=== PATIENT | male | born 1960 | race African-American/Black ===

== ENCOUNTER 2017-08-27 08:13 | Inpatient (IN) | payer MEDICARE, MEDICAID ==
[~2017-08-27] VITALS: Ht 165.1 cm; Wt 83.5 kg
[~2017-08-27 08:13] MED LIST: AMOX125T PO; CITA10TA17 PO; FLUC10SU PO; HYDR-552 PO; QUET25TA PO
--- NOTE | 2017-08-27 08:20 | NUR ---
YEHUDA FROM PRISON DT GROUND COFFEE EMESIS SINCE THIS AM. PATIENT IS OBTUNDED, NOTED WITH TRACHE ON COOL AEROSOL. SATING WELL. PATIENT IS AFEBRILE. NO ABDOMINAL DISTENTION NOTED. AFEBRILE. VSS
[2017-08-27] MEDS ORDERED: IV NS 0.9% 500 ML BAG IV ONE ×2 (08:30→10:00)
[2017-08-27] MEDS ORDERED: FAMOTIDINE/PF INJ 40 MG in IV D5W 50 ML IV ONE (08:30)
[2017-08-27 09:13] LABS: BASOPHILS # (AUTO) 0.1 /CMM (0.0-0.2); BASOPHILS % (AUTO) 0.8 % (0.0-2.0); EOSINOPHILS # (AUTO) 0.3 /CMM (0.0-0.7); EOSINOPHILS % (AUTO) 2.5 % (0.0-6.0); HEMATOCRIT 35 % (39-51); HEMOGLOBIN 11.4 g/dL (13.5-17.5); LYMPHOCYTES # (AUTO) 2.8 /CMM (0.8-4.8); LYMPHOCYTES % (AUTO) 24.9 % (20.0-44.0); MEAN CORPUSCULAR HEMOGLOBIN 29 PG (26.0-33.0); MEAN CORPUSCULAR HGB CONC 33 g/dl (31.0-36.0); MEAN CORPUSCULAR VOLUME 88 fL (80-96); MONOCYTES # (AUTO) 0.7 /CMM (0.1-1.30); MONOCYTES % (AUTO) 6.7 % (2.0-12.0); NEUTROPHILS # (AUTO) 7.2 /CMM (1.8-8.9); NEUTROPHILS % (AUTO) 65.1 % (43.0-81.0); PLATELET COUNT (AUTO) 283 /CMM (150-450); RDW COEFFICIENT OF VARIATION 16.7 (11.5-15.0); RED BLOOD CELL COUNT(AUTO) 3.97 MIL/uL (4.5-6.0); WHITE BLOOD COUNT (AUTO) 11.1 K/uL (4.3-11.0)
[2017-08-27 09:18] LABS: CALCIUM, SERUM 9.1 mg/dL (8.5-10.1); CARBON DIOXIDE 29 mmol/L (21-32); CHLORIDE 107 mmol/L (98-107); GLUCOSE 197 mg/dL (74-106); SODIUM SERUM 144 mmol/L (136-145); UREA NITROGEN, BLOOD 15 mg/dL (7-18)
[2017-08-27 09:24] LABS: ALANINE AMINOTRANSFERASE 30 U/L (12-78); ALBUMIN 3.1 g/dL (3.4-5.0); ALKALINE PHOSPHATASE 55 U/L (46-116); ASPARTATE AMINOTRANSFERASE 20 U/L (15-37); BILIRUBIN,DIRECT 0.1 mg/dL (0.0-0.2); BILIRUBIN,TOTAL 0.2 mg/dL (0.2-1.0); LIPASE 88 U/L (73-393); TOTAL PROTEIN, SERUM 8.2 g/dL (6.4-8.2)
[2017-08-27 09:27] LABS: TROPONIN I < 0.017 ng/mL (0.00-0.056)
[2017-08-27 09:30] LABS: INR 1.09 (0.87-1.13)
--- NOTE | 2017-08-27 09:43 | NUR ---
[facility] PAGED [phone] DR HERNANDEZ DIRECTOR RELIGIOUS EDUCATION
[2017-08-27 09:51] LABS: APPEARANCE,URINE Cloudy (CLEAR); BILIRUBIN,URINE Negative (NEGATIVE); BLOOD, URINE Negative Ery/uL (NEGATIVE); COLOR,URINE Yellow (YELLOW); KETONES,URINE Negative (NEGATIVE); LEUKOCYTE ESTERASE ,URINE Negative (NEGATIVE); NITRITE, URINE Negative (NEGATIVE); PH,URINE 8.5 (5.0-8.0); PROTEIN,URINE Negative (NEGATIVE); UGLUCOSE Negative (NEGATIVE); UROBILINOGEN,URINE 0.2 EU/dL (0.2)
--- NOTE | 2017-08-27 09:52 | NUR ---
CALLED [facility] BED
[2017-08-27 10:03] LABS: URINE AMORPHOUS PHOSPHATES Moderate /HPF (None Seen)
[2017-08-27 10:04] LABS: BACTERIA,URINE None seen /HPF (None Seen); RBC,URINE NONE SEEN /HPF (0-2); SQUAMOUS EPITHELIAL CELL,UR Few /HPF (None Seen); WBC,URINE 0-3 /HPF (0-3)
--- NOTE | 2017-08-27 10:21 | NUR ---
REPORT GIVEN TO TENISHA JACKSON FOR CONTINUITY OF CARE.
[2017-08-27 10:35] VITALS: BP 110/82
--- NOTE | 2017-08-27 10:35 | NUR ---
rn note received pt on bed, obtunded, opens eyes, responses to pain, no sob, noted, suctioned prn, trach in place, on tele monitor, sr 67 bpm, g tube in place, clamped, no residual, wounds present, iv in r hand 20 g, intact, safety measures implemented, call light within reach, bed in low and locked position, bed alarm on. will monitor pt.
[2017-08-27] MEDS ORDERED: DEXTROSE 50%-WATER 50 ML DISP.SYRIN IV PRN (11:30)
[2017-08-27] MEDS ORDERED: MAGNESIUM HYDROXIDE 30 ML UDC PO PRN (11:30)
[2017-08-27] MEDS ORDERED: HYDROCODONE/APAP 5/325MG 1 EACH TABLET PO PRN (11:30)
[2017-08-27] MEDS ORDERED: Z GUARD REMEDY 2 OZ OINT TP PRN (11:30)
[2017-08-27] MEDS ORDERED: ACETAMINOPHEN 325 MG TABLET PO PRN (11:30)
[2017-08-27] MEDS ORDERED: ONDANSETRON HCL/PF 4 MG/2 ML VIAL IVP PRN (11:30)
[2017-08-27] MEDS ORDERED: MAG HYDROX/AL HYDROX/SIMETH 30 ML UDC PO PRN (11:30)
[2017-08-27] MEDS ORDERED: ZOLPIDEM TARTRATE 5 MG TABLET PO PRN (11:30)
[2017-08-27 12:00] VITALS: BP 102/75
[2017-08-27] MEDS: PANTOPRAZOLE 40 MG VIAL IV SCH ×2 (12:59→21:57)
[2017-08-27] MEDS: BLOOD SUGAR DIAGNOSTIC 1 EACH STRIP VI SCH ×3 (12:59→21:57)
[2017-08-27] MEDS: IV D5/0.45 NACL 1,000 ML IV PRN (13:00)
[2017-08-27] MEDS: INSULIN REGULAR, HUMAN 100 UNIT/ML 3 ML VIAL SQ PRN ×2 (14:29→18:42)
[2017-08-27 18:00] VITALS: BP 110/74
--- NOTE | 2017-08-27 19:30 | NUR ---
OUTREACH MANAGER INITIAL NOTE RECEIVED IN BED WITH OPEN EYES. HOB ELEVATED. TRACH WITH COOL AEROSOL AND SATURATING WELL. ON ASPIRATION PRECAUTIONS. GTUBE CLAMPED. NPO STATUS. NO FACIAL GRIMACE NOTED. IV R HAND CLEAN, INTACT WITH FLUIDS INFUSING. WILL CONTINUE TO MONITOR.
[2017-08-27 20:00] VITALS: BP 110/77
[2017-08-27] MEDS: QUETIAPINE FUMARATE 25 MG TABLET PO SCH (21:57)
[2017-08-27] MEDS: *INSULIN REGULAR(HUMULIN R)HUM 100 UNIT/ML VIAL SQ PRN (22:11)
[2017-08-28] VITALS (9 sets, daily range): BP systolic 103–122; BP diastolic 67–85
[2017-08-28] MEDS: IV D5/0.45 NACL 1,000 ML IV PRN ×2 (02:28→16:38)
[2017-08-28 06:37] LABS: BASOPHILS # (AUTO) 0.1 /CMM (0.0-0.2); BASOPHILS % (AUTO) 0.7 % (0.0-2.0); EOSINOPHILS # (AUTO) 0.5 /CMM (0.0-0.7); EOSINOPHILS % (AUTO) 5.6 % (0.0-6.0); HEMATOCRIT 35 % (39-51); HEMOGLOBIN 11.5 g/dL (13.5-17.5); LYMPHOCYTES # (AUTO) 3.7 /CMM (0.8-4.8); LYMPHOCYTES % (AUTO) 43.4 % (20.0-44.0); MEAN CORPUSCULAR HEMOGLOBIN 30 PG (26.0-33.0); MEAN CORPUSCULAR HGB CONC 33 g/dl (31.0-36.0); MEAN CORPUSCULAR VOLUME 89 fL (80-96); MONOCYTES # (AUTO) 0.9 /CMM (0.1-1.30); MONOCYTES % (AUTO) 10.6 % (2.0-12.0); NEUTROPHILS # (AUTO) 3.4 /CMM (1.8-8.9); NEUTROPHILS % (AUTO) 39.7 % (43.0-81.0); RDW COEFFICIENT OF VARIATION 16.5 (11.5-15.0); RED BLOOD CELL COUNT(AUTO) 3.89 MIL/uL (4.5-6.0); WHITE BLOOD COUNT (AUTO) 8.6 K/uL (4.3-11.0)
[2017-08-28 06:56] LABS: CALCIUM, SERUM 8.3 mg/dL (8.5-10.1); CREATININE 0.8 mg/dL (0.6-1.3); MAGNESIUM 1.9 mg/dL (1.8-2.4); PHOSPHORUS 3.2 mg/dL (2.5-4.9); POTASSIUM 4.2 mmol/L (3.5-5.1)
--- NOTE | 2017-08-28 07:11 | NUR ---
WEAVER TIRE CORD CLOSING NOTE NO ACUTE DISTRESS NOTED. ALL NEEDS ATTENDED TO PROMPTLY. SUCTIONED NEEDED. REPOSITIONED Q2H. KEPT CLEAN AND DRY. NPO MAINTAINED. GTUBE IN PLACE AND CLAMPED. HOB ELEVATED. WILL ENDORSE TO NEXT SHIFT FOR CONTINUITY OF CARE.
--- NOTE | 2017-08-28 07:30 | NUR ---
MS/RN Patient received Patient received from plant technician/control room operator. Trach to cool aerosol at 10 liters (portex #9), saturating 98%. Vital signs within normal range, no fever noted, also no signs of any active bleeding. Patient requiring turning every 2-3 hours to prevent skin breakdown. Safety measures in place, will continue to monitor and ensure safety.
[2017-08-28] MEDS: CITALOPRAM HYDROBROMIDE 10 MG TABLET PO SCH (08:26)
[2017-08-28] MEDS: BLOOD SUGAR DIAGNOSTIC 1 EACH STRIP VI SCH ×4 (08:29→21:33)
[2017-08-28] MEDS: PANTOPRAZOLE 40 MG VIAL IV SCH ×2 (08:29→21:15)
[2017-08-28 08:42] LABS: PLATELET COUNT (AUTO) 228 /CMM (150-450)
--- NOTE | 2017-08-28 08:52 | NUR ---
MS/RN Medications Morning IV medications administered as ordered, all oral medications held as patient remains NPO due to GI bleed.
--- NOTE | 2017-08-28 09:36 | NUR ---
WOUND CARE CONSULT: PT PRESENTS WITH RT HEEL DEEP TISSUE INJURY (INTACT), DRY ABRASION TO RT EARLOBE EDGE NEAR FACE WITHOUT DRAINAGE, SACRAL SCARRING AND LEFT ANTERIOR LOWER LEG SCARRING, PRESENT ON ADMISSION. PT IS IMMOBILE WITH RUPAL SCORE OF 11. PT ON LEATHA ISOFLEX LOW AIRLOSS BED. ALL SKIN PROTECTION AND WOUND CARE RECOMMENDATIONS DISCUSSED WITH NURSING STAFF. WILL SEE PRN. BLACK IN AGREEMENT WITH PLAN OF CARE. Addendum: 08/28/17 at 0941 by JERRELL GOMEZ WNDNU Amended: Links added.
--- NOTE | 2017-08-28 12:21 | NUR ---
MS/RN Blood sugar Blood sugar at noon - 185, no coverage given as patient NPO.
--- NOTE | 2017-08-28 15:58 | NUR ---
MS/RN S/B GI Seen by GI - resume GT feedings, and then NPO from midnight for EGD tomorrow. Consent obtained from patient's Alisia.
--- NOTE | 2017-08-28 18:31 | NUR ---
MS/RN End note No changes in condition, awaiting feeding to be sent by [facility]. Safety measures in place, will endorse to slot shift supervisor.
[2017-08-28] MEDS: GLYTROL 1,000 ML BAG GT PRN (20:00)
[2017-08-28] MEDS: QUETIAPINE FUMARATE 25 MG TABLET PO SCH (21:15)
[2017-08-28] MEDS: *INSULIN REGULAR(HUMULIN R)HUM 100 UNIT/ML VIAL SQ PRN (21:34)
[2017-08-29] VITALS: BP 120/85
[2017-08-29 04:00] VITALS: BP 120/73
[2017-08-29] MEDS: IV D5/0.45 NACL 1,000 ML IV PRN ×2 (04:41→22:51)
[2017-08-29 07:25] LABS: BASOPHILS # (AUTO) 0.1 /CMM (0.0-0.2); EOSINOPHILS # (AUTO) 0.5 /CMM (0.0-0.7); EOSINOPHILS % (AUTO) 5.9 % (0.0-6.0); HEMATOCRIT 38 % (39-51); HEMOGLOBIN 12.5 g/dL (13.5-17.5); LYMPHOCYTES # (AUTO) 3.5 /CMM (0.8-4.8); LYMPHOCYTES % (AUTO) 43.4 % (20.0-44.0); MEAN CORPUSCULAR HEMOGLOBIN 29 PG (26.0-33.0); MEAN CORPUSCULAR HGB CONC 33 g/dl (31.0-36.0); MEAN CORPUSCULAR VOLUME 89 fL (80-96); MONOCYTES # (AUTO) 0.9 /CMM (0.1-1.30); MONOCYTES % (AUTO) 11.3 % (2.0-12.0); NEUTROPHILS # (AUTO) 3.1 /CMM (1.8-8.9); NEUTROPHILS % (AUTO) 38.4 % (43.0-81.0); PLATELET COUNT (AUTO) 254 /CMM (150-450); RDW COEFFICIENT OF VARIATION 16.3 (11.5-15.0); RED BLOOD CELL COUNT(AUTO) 4.24 MIL/uL (4.5-6.0)
[2017-08-29 07:29] LABS: CALCIUM, SERUM 8.3 mg/dL (8.5-10.1); CREATININE 0.8 mg/dL (0.6-1.3); MAGNESIUM 2.1 mg/dL (1.8-2.4)
--- NOTE | 2017-08-29 07:52 | NUR ---
RN NOTES RECEIVED PT OBTUNDED, TRACH IN PLACE ON AEROSOL. GT CLAMPED, KEPT NPO. NO BLEEDING NOTED AT THIS TIME. SAFETY ENSURED SINUS EZRA ON THE MONITOR.
[2017-08-29] MEDS: BLOOD SUGAR DIAGNOSTIC 1 EACH STRIP VI SCH ×2 (07:57→12:22)
[2017-08-29 08:00] VITALS: BP 119/77
[2017-08-29] MEDS: PANTOPRAZOLE 40 MG VIAL IV SCH ×2 (08:10→21:57)
[2017-08-29] MEDS: CITALOPRAM HYDROBROMIDE 10 MG TABLET PO SCH (08:13)
[2017-08-29] MEDS: NEOMY SULF/BACITRAC ZN/POLY 15 GM TUBE TP SCH (09:00)
[2017-08-29 12:00] VITALS: BP 117/85
--- NOTE | 2017-08-29 12:15 | NUR ---
RN NOTES PT BACK FROM PACU IN STABLE CONDITION; NO BLEEDING. PREVIOUS ORDERS RESUMED
[2017-08-29] MEDS: INSULIN REGULAR, HUMAN 100 UNIT/ML 3 ML VIAL SQ PRN ×2 (12:43→17:47)
[2017-08-29 16:00] VITALS: BP 113/75
[2017-08-29] MEDS ORDERED: *INSULIN REGULAR(HUMULIN R)HUM 100 UNIT/ML VIAL SQ PRN (17:00)
[2017-08-29] MEDS ORDERED: DEXTROSE 50%-WATER 50 ML DISP.SYRIN IV PRN (17:00)
[2017-08-29] MEDS: BLOOD SUGAR DIAGNOSTIC 1 EACH STRIP IN SCH ×2 (17:42→21:57)
--- NOTE | 2017-08-29 18:52 | NUR ---
RN CLOSING NOTES ENDORSED PT IN STABLE CONDITION; NO BLEEDING. IVF INFUSING WELL . GT FEEDING TOLERATED WELL; OB KEPT ELEVATED
--- NOTE | 2017-08-29 19:30 | NUR ---
SCRAPER HAND OPENING NOTES RECEIVED REPORT FROM AM RN. PATIENT OBTUNDED W/ TRACH INTACT. TOLERATING COOL AEROSOL, SATING @ 99-100%. ON TELE W/ SINUS RHYTHM, HR IN THE 80S. LEFT HAND IV #20 INTACT & PATENT W/ D5 1/2 NS @ 75 ML/HR. G-TUBE INTACT & FLUSHING WELL W/ GLYTROL @ 70 ML/HR. NO RESIDUAL NOTED @ THIS TIME. SKIN WARM, DRY & INTACT. NO S/S OF PAIN OR DISCOMFORT @ THIS TIME. SAFETY MEASURES IN PLACE W/ SIDE RAILS UP & BED LOCKED & IN LOWEST POSITION. WILL CONTINUE TO MONITOR.
[2017-08-29 20:00] VITALS: BP 119/90
[2017-08-29] MEDS: QUETIAPINE FUMARATE 25 MG TABLET PO SCH (21:57)
[2017-08-30] VITALS: BP 117/75
[2017-08-30] MEDS ORDERED: CEFTRIAXONE 1 G in IV NS 0.9% 50 ML IV SCH (00:30)
[2017-08-30] MEDS ORDERED: CEFTRIAXONE 1 G VIAL ONE (01:11)
[2017-08-30] MEDS: GLYTROL 1,000 ML BAG GT PRN (01:26)
[2017-08-30 04:00] VITALS: BP 119/84
[2017-08-30] MEDS ORDERED: GLYTROL 1,000 ML BAG GT PRN (07:02)
[2017-08-30 07:55] LABS: BASOPHILS # (AUTO) 0.1 /CMM (0.0-0.2); BASOPHILS % (AUTO) 1.1 % (0.0-2.0); EOSINOPHILS # (AUTO) 0.4 /CMM (0.0-0.7); EOSINOPHILS % (AUTO) 4.7 % (0.0-6.0); HEMATOCRIT 36 % (39-51); HEMOGLOBIN 11.9 g/dL (13.5-17.5); LYMPHOCYTES # (AUTO) 3.3 /CMM (0.8-4.8); MEAN CORPUSCULAR HEMOGLOBIN 29 PG (26.0-33.0); MEAN CORPUSCULAR HGB CONC 33 g/dl (31.0-36.0); MEAN CORPUSCULAR VOLUME 88 fL (80-96); MONOCYTES # (AUTO) 0.7 /CMM (0.1-1.30); MONOCYTES % (AUTO) 7.9 % (2.0-12.0); NEUTROPHILS # (AUTO) 4.4 /CMM (1.8-8.9); NEUTROPHILS % (AUTO) 49.3 % (43.0-81.0); PLATELET COUNT (AUTO) 254 /CMM (150-450); RDW COEFFICIENT OF VARIATION 16.8 (11.5-15.0); RED BLOOD CELL COUNT(AUTO) 4.08 MIL/uL (4.5-6.0); WHITE BLOOD COUNT (AUTO) 8.9 K/uL (4.3-11.0)
[2017-08-30 08:00] VITALS: BP 123/84
[2017-08-30 08:16] LABS: CREATININE 0.8 mg/dL (0.6-1.3)
[2017-08-30] MEDS: BLOOD SUGAR DIAGNOSTIC 1 EACH STRIP IN SCH ×2 (08:18→12:09)
[2017-08-30] MEDS: CITALOPRAM HYDROBROMIDE 10 MG TABLET PO SCH (09:15)
[2017-08-30] MEDS: NEOMY SULF/BACITRAC ZN/POLY 15 GM TUBE TP SCH (09:15)
[2017-08-30] MEDS: PANTOPRAZOLE 40 MG VIAL IV SCH (09:15)
[2017-08-30] MEDS: INSULIN REGULAR, HUMAN 100 UNIT/ML 3 ML VIAL SQ PRN ×2 (09:18→12:12)
[2017-08-30 12:00] VITALS: BP 125/87
[2017-08-30 16:00] VITALS: BP 129/86
[2017-08-30] MEDS ORDERED: *INS REG3 SQ (16:25)
[2017-08-30] MEDS ORDERED: ACET325T53 PO (16:25)
[2017-08-30] MEDS ORDERED: ONDA4VIA30 IVP (16:25)
[2017-08-30] MEDS ORDERED: INSU100V28 SQ (16:25)
[2017-08-30] MEDS ORDERED: [UNRECOGNIZED DRUG - OTHER] GT (16:25)
[2017-08-30] MEDS ORDERED: CEFT1VIA15 IV (16:25)
[2017-08-30] MEDS ORDERED: PANT40VI IV (16:25)
[2017-08-30] MEDS ORDERED: Insulin Glargine,Hum SQ (16:25)
--- NOTE | 2017-08-30 18:00 | NUR ---
RN NOTE PT DISCHARGED TO [facility] REPORT GIVEN TO TENISHA IRELAND, , PT STABLE, PICTURES TAKEN, PT HAD NO BELONGINGS, EXIT CARE DONE, DISCHARGE INSTRUCTIONS AND PAPERWORK GIVEN TO AMBULANCE, IS AWARE, PT HAD CONDOM CATH, G TUBE AND MIDLINE IN PLACE. PERIPHERAL IV AND ID BANDS REMOVED, AND PT LEFT VIA AMBULANCE.
[2017-08-30] MEDS ORDERED: INSULIN GLARGINE, 100 UNIT/ML CARTRIDGE SQ SCH (22:00)
[2017-08-31] MEDS ORDERED: PANTOPRAZOLE 40 MG VIAL IV SCH (09:00)
[2017-08-31] MEDS ORDERED: CEFTRIAXONE 1 G in IV NS 0.9% 50 ML IV SCH (23:00)
== END 2017-08-30 18:28 | DRG 377 ==
LOC: ER 08:15 → TELE1 10:31
PROVIDERS: ADMIT Internal Medicine; ATTEND Internal Medicine
PROC: 0DB68ZX Excision of Stomach, Via Natural or Artificial Opening Endoscopic, Diagnostic (ICD-10-PCS; principal; 2017-08-29 11:02)
PROC: 05H633Z Insertion of Infusion Device into Left Subclavian Vein, Percutaneous Approach (ICD-10-PCS; 2017-08-30)
PROC: B547ZZA Ultrasonography of Left Subclavian Vein, Guidance (ICD-10-PCS; 2017-08-30)
DX: K29.71 Gastritis, unspecified, with bleeding (principal); E43 Unspecified severe protein-calorie malnutrition; G93.1 Anoxic brain damage, not elsewhere classified; R40.3 Persistent vegetative state; Z99.11 Dependence on respirator [ventilator] status; J96.11 Chronic respiratory failure with hypoxia; R53.2 Functional quadriplegia; D68.59 Other primary thrombophilia; N39.0 Urinary tract infection, site not specified; E87.2 Acidosis; D62 Acute posthemorrhagic anemia; R65.10 Systemic inflammatory response syndrome (SIRS) of non-infectious origin without acute organ dysfunction; Z93.0 Tracheostomy status; F03.90 Unspecified dementia, unspecified severity, without behavioral disturbance, psychotic disturbance, mood disturbance, and anxiety; Z86.73 Personal history of transient ischemic attack (TIA), and cerebral infarction without residual deficits; N18.9 Chronic kidney disease, unspecified; R13.10 Dysphagia, unspecified; E86.0 Dehydration; Z93.1 Gastrostomy status; E11.22 Type 2 diabetes mellitus with diabetic chronic kidney disease; F09 Unspecified mental disorder due to known physiological condition; D72.829 Elevated white blood cell count, unspecified; E88.09 Other disorders of plasma-protein metabolism, not elsewhere classified; M62.50 Muscle wasting and atrophy, not elsewhere classified, unspecified site; D50.0 Iron deficiency anemia secondary to blood loss (chronic); Z79.4 Long term (current) use of insulin; Z68.30 Body mass index [BMI] 30.0-30.9, adult; L89.610 Pressure ulcer of right heel, unstageable; M24.572 Contracture, left ankle; M24.571 Contracture, right ankle; S01.311A Laceration without foreign body of right ear, initial encounter; X58.XXXA Exposure to other specified factors, initial encounter; Y93.9 Activity, unspecified; Y92.129 Unspecified place in nursing home as the place of occurrence of the external cause; B95.4 Other streptococcus as the cause of diseases classified elsewhere
CPT/HCPCS: 31720; 36415; 71045-TC; 80048-TC; 80076-TC; 81000-TC; 82962-TC; 83605-TC; 83690-TC; 83735-TC; 84100-TC; 84484-TC; 85025-TC; 85730-TC; 86850-TC; 87040-TC; 87081-TC; 87086-TC; 88305-TC; 88313-TC; 88342; 94640-TC; 94762-TC; A4216; A4349; A4606; A6403; C1751; C9113; J0696; J1815; J3490; J7030; J7040; J7060; Z7610

== ENCOUNTER 2017-11-24 20:01 | Inpatient (IN) | payer MEDICARE, MEDICAID ==
[~2017-11-24] VITALS: Ht 170.2 cm; Wt 94.3 kg
[~2017-11-24 20:01] MED LIST changes: +*INS REG3 SQ; +ACET325T53 PO; -AMOX125T PO; +CEFT1VIA15 IV; -FLUC10SU PO; -HYDR-552 PO; +INSU100V28 SQ; +Insulin Glargine,Hum SQ; +ONDA4VIA23 IVP; +PANT40VI IV; +[UNRECOGNIZED DRUG - OTHER] GT
--- NOTE | 2017-11-24 20:10 | NUR ---
TO BED 8 BIB PARAMEDICS C/O FEVER AND TACHYCARDIA. PT CHRONIC TRACHE, ON T-TUBE MASK 15L. PLACE PT ON CARDIAC MONITORING, CONTINUOUS POX. SKI HOT TO TOUCH, NONDIAPHORETIC. PENDING ER TUCKER MANCERA.
--- NOTE | 2017-11-24 20:11 | NUR ---
NOTED PT WITH FACIAL TWITCHING. ER MD MADE AWARE WITH ORDERS TO PLACE PT ON SEIZURE PRECAUTION. PLACE PT ON SEIZURE PRECAUTION WITH PADDED SIDERAILS.
--- NOTE | 2017-11-24 20:36 | NUR ---
RT AT BEDSIDE.
--- NOTE | 2017-11-24 20:41 | NUR ---
PT VOMITTED, ER MD MADE AWARE. PLACE PT G-TUBE ON INTERMITTENT SUCTION PER ER MD ORDER.
--- NOTE | 2017-11-24 21:05 | NUR ---
PT TRANSPORTED TO RADIOLOGY FOR CT HEAD.
[2017-11-24 21:22] LABS: HEMATOCRIT 44 % (39-51); HEMOGLOBIN 14.5 g/dL (13.5-17.5); MEAN CORPUSCULAR HGB CONC 33 g/dl (31.0-36.0); MEAN CORPUSCULAR VOLUME 90 fL (80-96); PLATELET COUNT (AUTO) 244 /CMM (150-450); RDW COEFFICIENT OF VARIATION 17.7 (11.5-15.0); RED BLOOD CELL COUNT(AUTO) 4.86 MIL/uL (4.5-6.0); WHITE BLOOD COUNT (AUTO) 17.6 K/uL (4.3-11.0)
[2017-11-24 21:29] LABS: CALCIUM, SERUM 8.5 mg/dL (8.5-10.1); CARBON DIOXIDE 22 mmol/L (21-32); CHLORIDE 98 mmol/L (98-107); CREATININE 1.1 mg/dL (0.6-1.3); POTASSIUM 4.6 mmol/L (3.5-5.1); SODIUM SERUM 133 mmol/L (136-145); UREA NITROGEN, BLOOD 13 mg/dL (7-18)
[2017-11-24] MEDS ORDERED: IV NS 0.9% 1,000 ML BAG IV ONE ×3 (21:30→23:30)
[2017-11-24] MEDS ORDERED: ACETAMINOPHEN 650 MG/SUPP.RECT RC ONE ×2 (21:30→21:41)
[2017-11-24 21:33] LABS: GLUCOSE 357 mg/dL (74-106)
[2017-11-24 21:35] LABS: APPEARANCE,URINE Clear (CLEAR); BILIRUBIN,URINE Negative (NEGATIVE); BLOOD, URINE Negative Ery/uL (NEGATIVE); COLOR,URINE Yellow (YELLOW); KETONES,URINE Negative (NEGATIVE); LEUKOCYTE ESTERASE ,URINE Small (NEGATIVE); NITRITE, URINE Negative (NEGATIVE); PH,URINE 7.5 (5.0-8.0); PROTEIN,URINE Negative (NEGATIVE); UGLUCOSE Negative (NEGATIVE); UROBILINOGEN,URINE 0.2 EU/dL (0.2)
[2017-11-24 21:43] LABS: RBC,URINE NONE SEEN /HPF (0-2)
[2017-11-24 21:44] LABS: BACTERIA,URINE 4+ /HPF (None Seen); SQUAMOUS EPITHELIAL CELL,UR None Seen /HPF (None Seen)
--- NOTE | 2017-11-24 21:54 | NUR ---
FARHAT BLACK SPOKE TO ROCAEL TIM [facility] REGARDING PT ADMISSION.
--- NOTE | 2017-11-24 21:54 | NUR ---
CALLED NURSING MANAGER TRANSFER AND REQUESTED A SHAMAR BED FOR THIS PT.
[2017-11-24] MEDS ORDERED: LEVOFLOXACIN 750 MG /D5W 150ML 750 MG in PREMIX 1 EA IV SCH (22:00)
[2017-11-24] MEDS ORDERED: HYDROCODONE/APAP 5/325MG 1 EACH TABLET GT PRN (22:00)
[2017-11-24] MEDS ORDERED: TEMAZEPAM 15 MG CAPSULE PO PRN (22:00)
[2017-11-24] MEDS ORDERED: INSULIN REGULAR, HUMAN 100 UNIT/ML 10 ML VIAL IV ONE (22:00)
[2017-11-24] MEDS ORDERED: ENOXAPARIN SODIUM 30 MG/0.3 ML DISP.SYRIN SQ SCH (22:00)
[2017-11-24] MEDS ORDERED: HYDROCODONE/APAP 10/325MG 1 EA TABLET GT PRN (22:00)
[2017-11-24] MEDS ORDERED: VANCOMYCIN 1 GM in IV D5W 250 ML IV ONE (22:00)
[2017-11-24] MEDS ORDERED: VANCOMYCIN 1 GM VIAL ONE (22:00)
[2017-11-24] MEDS ORDERED: INSULIN REGULAR, HUMAN 100 UNIT/ML 10 ML VIAL ONE (22:01)
--- NOTE | 2017-11-24 22:18 | NUR ---
REPORT CALLED TO TELE 1 TENISHA WINTERS WILL TRANSPORT PT VIA ACLS PROTOCOL.
[2017-11-24] MEDS ORDERED: DEXTROSE 50%-WATER 50 ML DISP.SYRIN IV PRN (22:30)
[2017-11-24 22:41] LABS: BAND % (MANUAL) 15 % (0.0-5.0); NEUTROPHILS % (MANUAL) 72 (42-76)
[2017-11-24 22:42] LABS: LYMPHOCYTES % (MANUAL) 9 % (16-48); MONOCYTES % (MANUAL) 4 % (0-11.0)
[2017-11-24 23:16] VITALS: BP 107/69
--- NOTE | 2017-11-24 23:25 | NUR ---
RN NOTE RECEIVED PATIENT FROM ER, REPORT WAS PROVIDED BY ED, PATIENT IS LETHARGIC, DOES NOT FOLLOW COMMANDS ,DX SEPSIS DUE TO PNEUMONIA AND UTI, SINUS TACHYCARDIA ON THE MONITOR, LETHARGIC, HISTORY OF SEIZURE, SEIZURE PRECAUTIONS TAKEN, PEG TUBE IS INTACT, ON T-PIECE 6L/MIN, FIO2 28%, NO RESPIRATORY DISTRESS NOTED,VITAL SIGNS TAKEN AND RECORDED, SKIN PICTURES TAKEN AND PLACED IN THE CHART, MCCOY CATH IS INTACT, DRAINS YELLOW, CLOUDY WITH SEDIMENT URINE, ALL SAFETY MEASURES TAKEN, BED IN THE LOWEST POSITION, CALL LIGHT WITHIN REACH, SIDE RAILS UP X 2, WILL CONTINUE TO MONITOR PATIENT
--- NOTE | 2017-11-24 23:25 | NUR ---
RN NOTE CRITICAL LAB VALUE LACTIC ACID 2.8, NOTIFIED ROCAEL TIM NP, NEW ORDER IS GIVEN AND CARRIED OUT, CHARGE NURSE IS AWARE
[2017-11-24] MEDS ORDERED: LEVOFLOXACIN 750 MG /D5W 150ML 150 ML IV ONE (23:27)
[2017-11-24] MEDS: IV NS 0.9% 1,000 ML IV PRN (23:36)
[2017-11-25] VITALS (7 sets, daily range): BP systolic 105–119; BP diastolic 66–78
[2017-11-25] MEDS: GLUCERNA 1.2 1,000 ML BOTTLE GT PRN (00:50)
[2017-11-25] MEDS: BLOOD SUGAR DIAGNOSTIC 1 EACH STRIP IN SCH ×4 (00:52→18:26)
[2017-11-25] MEDS: INSULIN REGULAR, HUMAN 100 UNIT/ML 3 ML VIAL SQ PRN ×4 (00:57→18:31)
[2017-11-25] MEDS: ALBUTEROL FS 2.5 MG/3 ML VIAL.NEB NEB PRN ×3 (01:21→13:22)
[2017-11-25] MEDS: IPRATROPIUM NEB FS 0.5 MG/2.5 ML AMPUL.NEB NEB PRN ×3 (01:21→13:22)
[2017-11-25 01:58] LABS: BILIRUBIN,TOTAL 0.4 mg/dL (0.2-1.0)
[2017-11-25] MEDS: ACETAMINOPHEN 650 MG/SUPP.RECT RC PRN ×2 (03:45→21:23)
--- NOTE | 2017-11-25 04:18 | NUR ---
RN NOTE SO2 86% ON 6L/MIN, FIO2 28%, INCREASED OXYGEN, ELEVATED HOB, SO2 90%, NOTIFIED ROCAEL TIM HAIR DESIGNER, NEW ORDERS:STAT ABG'S, PUT ON MECHANICAL VENTILATOR GIVEN, CHARGE NURSE IS AWARE
--- NOTE | 2017-11-25 04:23 | NUR ---
RN NOTE NOTIFIED ROCAEL TIM NP REGARDING G-TUBE RESIDUAL OF 150CC, GLENROY COTE SENIOR PRODUCT MANAGER ORDERED TO STOP FEEDING FOR AN HOUR AND RECHECK. ADDITIONALLY NOTIFIED DOMINIQUE COTE REGARDING HR 130 ST ON THE MONITOR, PER ROCAEL SENIOR PRODUCT MANAGER CONTINUE TO MONITOR
[2017-11-25 04:32] LABS: ABG BASE EXCESS -6.4 mmol/L; ABG OXYGEN SATURATION 88.2 % (92.0-98.5); ABG PCO2 27.2 mmHg (35.0-45.0); ABG PH 7.407 (7.350-7.450); ABG PO2 55.4 mmHg (75.0-100.0); AaDO2 112.1 mmHg; MetHb 0.6 % (0.0-1.5); O2Hb 87.7 % (94.0-97.0); SITE, ABG Right Radial; VENT MODE, BG CA
--- NOTE | 2017-11-25 05:48 | NUR ---
RT NOTE: PT WAS PLACED ON VENT W SETTINGS NOTED PER DR. COTE. VENT IS PLUGGED INTO THE RED OUTLET W AMBUBAG BY BEDSIDE. PT IS TOLERATING WELL. NURSE AWARE. NO DISTRESS NOTED AT THIS TIME. WILL CONTINUE TO MONITOR. Addendum: 11/25/17 at 0550 by PARISA STANTON RT Amended: Links added.
[2017-11-25 07:23] LABS: BASOPHILS # (AUTO) 0.1 /CMM (0.0-0.2); BASOPHILS % (AUTO) 0.5 % (0.0-2.0); EOSINOPHILS % (AUTO) 0.3 % (0.0-6.0); HEMATOCRIT 42 % (39-51); LYMPHOCYTES # (AUTO) 1.4 /CMM (0.8-4.8); LYMPHOCYTES % (AUTO) 10.6 % (20.0-44.0); MEAN CORPUSCULAR HGB CONC 33 g/dl (31.0-36.0); MEAN CORPUSCULAR VOLUME 90 fL (80-96); MONOCYTES # (AUTO) 0.5 /CMM (0.1-1.30); MONOCYTES % (AUTO) 3.7 % (2.0-12.0); NEUTROPHILS # (AUTO) 11.5 /CMM (1.8-8.9); NEUTROPHILS % (AUTO) 84.9 % (43.0-81.0); PLATELET COUNT (AUTO) 197 /CMM (150-450); RDW COEFFICIENT OF VARIATION 17.9 (11.5-15.0); RED BLOOD CELL COUNT(AUTO) 4.69 MIL/uL (4.5-6.0); WHITE BLOOD COUNT (AUTO) 13.5 K/uL (4.3-11.0)
[2017-11-25] MEDS ORDERED: MAGN400O6 GT (07:43)
[2017-11-25] MEDS ORDERED: AMIN30LI2 GT (07:43)
[2017-11-25] MEDS ORDERED: INSU100V30 SQ (07:43)
[2017-11-25] MEDS ORDERED: ALBU2.5V13 IH ×2 (07:43)
[2017-11-25] MEDS ORDERED: ASCO500T9 GT (07:43)
[2017-11-25] MEDS ORDERED: DEXL30CA3 GT (07:43)
[2017-11-25] MEDS ORDERED: BISA10SU8 RC (07:43)
[2017-11-25] MEDS ORDERED: CRAN3875 GT (07:43)
[2017-11-25] MEDS ORDERED: DOCU100T2 GT (07:43)
[2017-11-25] MEDS ORDERED: INSU100I30 SQ (07:43)
[2017-11-25] MEDS ORDERED: IPRA0.2S49 IH ×2 (07:43)
[2017-11-25] MEDS ORDERED: TOPI100T GT (07:43)
[2017-11-25] MEDS ORDERED: ATOR20TA GT (07:43)
[2017-11-25] MEDS ORDERED: LEVE100S GT (07:43)
[2017-11-25] MEDS ORDERED: METO25TA6 GT (07:43)
[2017-11-25] MEDS ORDERED: NUT.237L30 GT (07:43)
[2017-11-25] MEDS ORDERED: ACET-868 PO (07:43)
[2017-11-25] MEDS ORDERED: SACC250C GT (07:43)
[2017-11-25 08:26] LABS: CALCIUM, SERUM 8.1 mg/dL (8.5-10.1); CREATININE 1.1 mg/dL (0.6-1.3); PHOSPHORUS 2.2 mg/dL (2.5-4.9); POTASSIUM 4.2 mmol/L (3.5-5.1)
[2017-11-25] MEDS ORDERED: PANTOPRAZOLE 40 MG VIAL IV SCH (09:00)
[2017-11-25] MEDS: ONDANSETRON HCL/PF 4 MG/2 ML VIAL IVP PRN ×3 (09:57→21:23)
[2017-11-25] MEDS ORDERED: K PHOS NEUTRAL 250 MG TABLET PO ONE (13:30)
[2017-11-25] MEDS ORDERED: FEE PK DOSING 1 MIN EA MC ONE (13:45)
[2017-11-25] MEDS: IV NS 0.9% 1,000 ML IV PRN (15:21)
--- NOTE | 2017-11-25 15:38 | NUR ---
RN NOTE PT HAD GASTRIC RESIDUAL 200 ML IN AM, AT NOON RESIDUAL 300 ML WITH TUBE FEEDING BEING ON HOLD, LATER PT VOMITED YELLOW LIQUID EMESIS X1. ZOFRAN GIVEN, NOTIFIED, XRAY KUB ORDERED. WILL MONITOR PT. SAFETY MEASURES IN PLACE.
[2017-11-25] MEDS ORDERED: Z GUARD REMEDY 2 OZ OINT TP PRN (16:00)
[2017-11-25] MEDS: VANCOMYCIN 0.75 GM in IV NS 0.9% 250 ML IV SCH ×2 (16:06→22:01)
--- NOTE | 2017-11-25 18:55 | NUR ---
rn note NOTIFIED WOUND CARE TECHNICIAN RAVINDER DE LA TORRE ABOUT LOW URINE OUTPUT, 300 ML, HE ORDERED BOLUS NS 500 ML, PROCALCITONIN LEVEL REPORTED, HE ORDERED TO CHECK IT AGAIN IN AM. WILL ORDER AND CARRY OUT ORDERS. WILL ENDORSE TO METALIZING SUPERVISOR NURSE.
[2017-11-25] MEDS ORDERED: IV NS 0.9% 500 ML IV ONE (19:00)
--- NOTE | 2017-11-25 20:00 | NUR ---
RN NOTE RESIDUAL OF 200CC NOTED, COFFEE GROUND COLOR, NOTIFIED ROCAEL TIM SALES REPRESENTATIVE ADVERTISING, ROCAEL TIM NP ORDERED NPO STATUS, ORDER WAS CARRIED OUT, CHARGE NURSE IS AWARE, WILL CONTINUE TO MONITOR, ALL SAFETY MEASURES TAKEN
[2017-11-25] MEDS ORDERED: PIPERACILLIN /TAZOBACTAM 3.375 G VIAL IV ONE (21:02)
[2017-11-25] MEDS: PIPERACILLIN /TAZOBACTAM 3.375 G in IV D5W 50 ML IV SCH (21:04)
[2017-11-25] MEDS: ENOXAPARIN SODIUM 40 MG/0.4 ML DISP.SYRIN SQ SCH (21:05)
[2017-11-25] MEDS ORDERED: LEVOFLOXACIN 750 MG /D5W 150ML PIGGYBACK IV SCH (22:00)
[2017-11-26] VITALS: BP_SYST 112; BP_SYST 122; BP_DIAS 65
[2017-11-26] MEDS: BLOOD SUGAR DIAGNOSTIC 1 EACH STRIP IN SCH ×5 (00:17→23:47)
[2017-11-26] MEDS: INSULIN REGULAR, HUMAN 100 UNIT/ML 3 ML VIAL SQ PRN ×5 (00:19→23:50)
--- NOTE | 2017-11-26 00:51 | NUR ---
RN NOTE COFFEE GROUND EMESIS X 2, NOTIFIED ROCAEL TIM NP, PER ROCAEL TIM NP NEW ORDER OF PROTONIX 40MG TWICE A DAY AND ENDORSE TO AM SHIFT TO FOLLOW UP ON GI CONSULT AND CONTINUE TO MONITOR, ALSO NOTIFIED ROCAEL TIM NP THAT TEMPERATURE DROPPED FROM 101.6F TO 100.2F AFTER ADMINISTRATION OF TYLENOL SUPPOSITORY AND COOL MEASURES, NO NEW ORDERS GIVEN AT THIS
[2017-11-26 04:00] VITALS: BP 104/72
[2017-11-26] MEDS ORDERED: PIPERACILLIN /TAZOBACTAM 3.375 G VIAL IV ONE (06:06)
[2017-11-26] MEDS: PIPERACILLIN /TAZOBACTAM 3.375 G in IV D5W 50 ML IV SCH ×4 (06:10→23:50)
[2017-11-26] MEDS: VANCOMYCIN 0.75 GM in IV NS 0.9% 250 ML IV SCH ×3 (06:26→22:36)
[2017-11-26 07:13] LABS: CALCIUM, SERUM 7.9 mg/dL (8.5-10.1); CREATININE 1.2 mg/dL (0.6-1.3); POTASSIUM 3.7 mmol/L (3.5-5.1)
--- NOTE | 2017-11-26 07:21 | NUR ---
RN NOTE NO VOMITING AT THIS TIME, HOB ELEVATED AT ALL TIMES, SEIZURE PRECAUTIONS TAKEN, TURNED AND REPOSITIONED Q 2 HOURS, AFEBRILE AT THIS TIME, STILL MD MEGHA IS AWARE, ALL SAFETY MEASURES TAKEN, NO RESPIRATORY DISTRESS NOTED, TURNED AND REPOSITION Q 2 HOURS, WILL ENDORSE TO AM SHIFT FOR CHELLE
[2017-11-26] MEDS: IPRATROPIUM NEB FS 0.5 MG/2.5 ML AMPUL.NEB NEB PRN (07:50)
[2017-11-26] MEDS: ALBUTEROL FS 2.5 MG/3 ML VIAL.NEB NEB PRN (07:50)
[2017-11-26 08:00] VITALS: BP 106/75
--- NOTE | 2017-11-26 08:00 | NUR ---
TD/RN AM SHIFT INITIAL NOTES RECEIVED PT ASLEEP IN BED, OPEN EYES, OBTUNDED, NO ACUTE CHANGE OF CONDITION OR RESPIRATORY DISTRESS BUT NOTED WITH ELEVATED TEMP 100.3, COOLING MEASURES ON GOING. VENT DEPENDENT WITH RATES SET PRESCRIBED, SATURATING @ 97%, LUNG SOUNDS CLEAR, SUCTIONED FOR AIRWAY CLEARANCE. ON TELE MONITORING, SINUS TACHY, HR 110. PT WITH ON GOING IV INFUSION OF NS @ 75CC/HR, IV SITES FLUSHED, PATENT WITH NO S/S OF INFECTION. GT FEEDING ON HOLD, REPORTED BY PM NURSE D/T COFFEE GROUNDS VOMIT LAST NIGHT. MCCOY CATHETER INTACT WITH CLOUDY YELLOW, SEDIMENTS URINE OUTPUT. SCHEDULED AM MEDS TO BE GIVEN. CL WITHIN REACHED AND SAFETY MAINTAINED. ON GOING MONITORING.
[2017-11-26] MEDS: PANTOPRAZOLE 40 MG VIAL IV SCH ×2 (09:32→17:03)
--- NOTE | 2017-11-26 09:45 | NUR ---
TD/RN ROUNDS - DR. REYNOLDS UPDATED PT'S CONDITION. PT SEEN & EXAMINED BY DR. REYNOLDS. NO NEW ORDERS RECEIVED AT THIS TIME.
[2017-11-26] MEDS: IV NS 0.9% 1,000 ML IV PRN (10:51)
[2017-11-26 11:48] LABS: HEMATOCRIT 34 % (39-51); HEMOGLOBIN 10.8 g/dL (13.5-17.5); MEAN CORPUSCULAR HGB CONC 32 g/dl (31.0-36.0); MEAN CORPUSCULAR VOLUME 92 fL (80-96); PLATELET COUNT (AUTO) 191 /CMM (150-450); RDW COEFFICIENT OF VARIATION 18.5 (11.5-15.0); RED BLOOD CELL COUNT(AUTO) 3.65 MIL/uL (4.5-6.0); WHITE BLOOD COUNT (AUTO) 18.3 K/uL (4.3-11.0)
[2017-11-26 12:00] VITALS: BP 115/84
[2017-11-26 13:12] LABS: BAND % (MANUAL) 39 % (0.0-5.0); LYMPHOCYTES % (MANUAL) 9 % (16-48); MONOCYTES % (MANUAL) 1 % (0-11.0); NEUTROPHILS % (MANUAL) 51 (42-76)
--- NOTE | 2017-11-26 13:30 | NUR ---
PT TRANSPORTED TO CT AND BROUGHT BACK WITH NO RESPIRATORY DISTRESS NOTED. Addendum: 11/26/17 at 1757 by PARISA STANTON RT Amended: Links added.
[2017-11-26 16:00] VITALS: BP 99/68
[2017-11-26 18:15] LABS: HEMOGLOBIN 10.1 g/dL (13.5-17.5)
--- NOTE | 2017-11-26 19:32 | NUR ---
TD/RN AM SHIFT END NOTES NO VOMITING INCIDENT OR ACUTE CHANGE OF CONDITION DURING THE SHIFT, ALL NEEDS MET. PT STILL NPO, WITH ON GOING IV FLUIDS, IV SITES PATENT WITH NO S/S OF INFECTION, MCCOY CATHETER INTACT. PT ENDORSED TO PM NURSE TO CONTINUE CARE. CL WITHIN REACHED AND SAFETY MAINTAINED.
--- NOTE | 2017-11-26 19:36 | NUR ---
RN NOTE RECEIVED PATIENT IN THE BED, OBTUNDED, NO RESPIRATORY DISTRESS NOTED, NO S/S OF PAIN OR DISCOMFORT NOTED, PER MD PUT LOVENOX ON HOLD, ALL SAFETY MEASURES TAKEN, WILL CONTINUE TO MONITOR PATIENT
[2017-11-26 20:00] VITALS: BP 102/66
[2017-11-26] MEDS: ENOXAPARIN SODIUM 40 MG/0.4 ML DISP.SYRIN SQ SCH (20:17)
--- NOTE | 2017-11-26 20:18 | NUR ---
RN NOTE LOVENOX ON HOLD, PER MD ORDER DUE TO COFFEE GROUND EMESIS
[2017-11-27] VITALS (7 sets, daily range): BP systolic 91–102; BP diastolic 60–73
--- NOTE | 2017-11-27 01:00 | NUR ---
RN NOTE NOTIFIED ROCAEL TIM NP THAT GI CONSULT WAS NOT DONE AND MED RECON WAS NOT DONE, PER ROCAEL TIM NP "ENDORSE TO AM SHIFT SO MORNING SHIFT NURSE CAN FOLLOW UP WITH PRIMARY MD", WILL NOTIFY MORNING NURSE TO FOLLOW UP
[2017-11-27] MEDS: PIPERACILLIN /TAZOBACTAM 3.375 G in IV D5W 50 ML IV SCH ×3 (05:55→17:46)
[2017-11-27] MEDS: VANCOMYCIN 0.75 GM in IV NS 0.9% 250 ML IV SCH ×3 (05:56→22:13)
[2017-11-27] MEDS: BLOOD SUGAR DIAGNOSTIC 1 EACH STRIP IN SCH ×3 (06:49→17:50)
[2017-11-27] MEDS: INSULIN REGULAR, HUMAN 100 UNIT/ML 3 ML VIAL SQ PRN ×3 (06:49→18:01)
[2017-11-27] MEDS: IV NS 0.9% 1,000 ML IV PRN (06:50)
--- NOTE | 2017-11-27 07:11 | NUR ---
RN NOTE PATIENT RESTED WELL AT NIGHT, NO RESPIRATORY DISTRESS NOTED, SEIZURE PRECAUTIONS TAKEN, TURNED AND REPOSITION Q 2 HOURS, NO S/S OF BLEEDING NOTED, ENDORSED TO AM SHIFT TO FOLLOW UP ON GI CONSULT AND MED RECON PER ROCAEL TIM ORDER, WILL ENDORSE TO AM SHIFT FOR CHELLE
[2017-11-27 07:22] LABS: CREATININE 0.9 mg/dL (0.6-1.3); POTASSIUM 3.8 mmol/L (3.5-5.1)
--- NOTE | 2017-11-27 07:30 | NUR ---
SHAMAR RN AM NOTE RECEIVED PATIENT IN THE BED, OBTUNDED, WITH FACIAL TWITCHING NOTED, PER SORTING COWS WORKER PT HAS BEEN LIKE THIS WHEN AWAKE, WITH PORTEX 8 TO MECHANICAL VENT, SETTINGS ORDERED. TOLERATING WELL. BREATHING EVEN AND UNLABORED. TELEMETRY READS SR HR 66, NO SIGNS OF PAIN OR DISCOMFORT, RT HAND G18 WITH NS AT 75 ML/HR INFUSING WELL. RT FOREARM G22 FLUSHES WELL, BOTH SITES CLEAR. NPO DUE TO VOMITING AND RESIDUAL OF COFFEE GROUND MATERIAL LAST NIGHT. SEE NURSING FLOWSHEET FOR SKIN ISSUES. MCCOY CATH IN PLACE WITH ADEQUATE AMOUNT OF URINE OUTPUT. PER MD PUT LOVENOX ON HOLD, WILL TURN AND REPOSITION Q 2 HOURS. ALL SAFETY MEASURES IN PLACE. WILL CONTINUE TO MONITOR PATIENT
[2017-11-27 07:59] LABS: BASOPHILS % (AUTO) 0.3 % (0.0-2.0); HEMATOCRIT 29 % (39-51); HEMOGLOBIN 9.5 g/dL (13.5-17.5); LYMPHOCYTES # (AUTO) 1.9 /CMM (0.8-4.8); LYMPHOCYTES % (AUTO) 12.3 % (20.0-44.0); MEAN CORPUSCULAR HGB CONC 33 g/dl (31.0-36.0); MEAN CORPUSCULAR VOLUME 91 fL (80-96); MONOCYTES # (AUTO) 0.5 /CMM (0.1-1.30); MONOCYTES % (AUTO) 3.3 % (2.0-12.0); NEUTROPHILS # (AUTO) 12.2 /CMM (1.8-8.9); NEUTROPHILS % (AUTO) 80.1 % (43.0-81.0); PLATELET COUNT (AUTO) 188 /CMM (150-450); RED BLOOD CELL COUNT(AUTO) 3.19 MIL/uL (4.5-6.0); WHITE BLOOD COUNT (AUTO) 15.2 K/uL (4.3-11.0)
[2017-11-27] MEDS: PANTOPRAZOLE 40 MG VIAL IV SCH ×2 (08:34→17:46)
--- NOTE | 2017-11-27 09:30 | NUR ---
SHAMAR RN NOTES DUE MEDS GIVEN.
--- NOTE | 2017-11-27 11:57 | NUR ---
SHAMAR RN NOTES NOTIFIED DR. GAYLE LUU ABOUT MED RECON LIST NOT DONE AND ALSO THAT PATIENT HAD 2 EPISODES OF VOMITING LAST NIGHT OF COFFEE GROUND MATERIAL. DR. SCHMITZ AT BEDSIDE EARLIER. JUST ORDERED TO CHECK ON MAGNESIUM LEVEL AND WILL FOLLOW UP TOMORROW. KEEP NPO.
--- NOTE | 2017-11-27 12:00 | NUR ---
SHOW CARD WRITER NOTES JOYCE LOVE STARTED. ALEIDA LOVE TO FOLLOW. Addendum: 11/27/17 at 1549 by JAIRO JOHN RN CORRECTION: DISREGARD THIS DOCUMENTATION INTENDED FOR ANOTHER PATIENT.
--- NOTE | 2017-11-27 12:16 | NUR ---
FRANCISCO STEVEN NOTES BLANCA. BS 90 MG/DL. NO INSULIN COVERAGE GIVEN. Addendum: 11/27/17 at 1549 by JAIRO JOHN RN CORRECTION DISREGARD THIS DOCUMENTATION INTENDED FOR ANOTHER PATIENT.
--- NOTE | 2017-11-27 12:34 | NUR ---
SIDE STITCHING MACHINE OPERATOR NOTES ACCUCHECK. BS 269 MG/DL. 9 UNITS HUM R INSULIN GIVEN PER SS.
--- NOTE | 2017-11-27 17:57 | NUR ---
SOFTWARE DEVELOPMENT MANAGER NOTES ACCUCHECK. BS 278MG/DL. 9 UNITS HUM R INSULIN GIVEN PER SS.
--- NOTE | 2017-11-27 18:23 | NUR ---
SHAMAR RN CLOSING NOTE PATIENT IN BED, OBTUNDED, WITH FACIAL TWITCHING NOTED, WITH PORTEX 8 TO MECHANICAL VENT, SETTINGS ORDERED. TOLERATING WELL. BREATHING EVEN AND UNLABORED. TELEMETRY READS SR HR 68, NO SIGNS OF PAIN OR DISCOMFORT, RT HAND G18 WITH NS AT 75 ML/HR INFUSING WELL. RT FOREARM G22 FLUSHES WELL, BOTH SITES CLEAR. NPO DUE TO VOMITING AND RESIDUAL OF COFFEE GROUND MATERIAL LAST NIGHT. MCCOY CATH IN PLACE WITH ADEQUATE AMOUNT OF BLOOD TINGED URINE OUTPUT, [address] SCHMITZ AWARE. PM CARE AND PRESCRIBED WOUND TREATMENT DONE, TURNED AND REPOSITIONED Q 2 HOURS. ALL SAFETY MEASURES IN PLACE. ALL NEEDS MET AT THIS TIME. MADE COMFORTABLE. NO OTHER SIGNIFICANT CHANGE IN CONDITION. WILL ENDORSE TO NEXT SHIFT FOR CHELLE.
[2017-11-27] MEDS: ACETYLCYSTEINE 10% 3,000 MG/30 ML VIAL PO SCH (20:13)
[2017-11-27] MEDS: ENOXAPARIN SODIUM 40 MG/0.4 ML DISP.SYRIN SQ SCH (21:00)
[2017-11-28] VITALS: BP 140/84
[2017-11-28] MEDS: PIPERACILLIN /TAZOBACTAM 3.375 G in IV D5W 50 ML IV SCH ×5 (00:19→23:44)
[2017-11-28] MEDS: INSULIN REGULAR, HUMAN 100 UNIT/ML 3 ML VIAL SQ PRN ×5 (00:23→23:51)
[2017-11-28] MEDS: IV NS 0.9% 1,000 ML IV PRN ×2 (00:24→21:31)
[2017-11-28] MEDS: BLOOD SUGAR DIAGNOSTIC 1 EACH STRIP IN SCH ×5 (00:24→23:44)
[2017-11-28 04:00] VITALS: BP 114/79
[2017-11-28] MEDS: VANCOMYCIN 0.75 GM in IV NS 0.9% 250 ML IV SCH ×2 (06:20→14:00)
[2017-11-28 07:17] LABS: CALCIUM, SERUM 8.4 mg/dL (8.5-10.1); CREATININE 1.2 mg/dL (0.6-1.3); POTASSIUM 3.1 mmol/L (3.5-5.1)
--- NOTE | 2017-11-28 07:17 | NUR ---
RN CLOSING NOTES PATIENT WITH NO ACUTE DISTRESS OBSERVED OVERNIGHT. NO FURTHER COFFEE GROUND EMESIS. NO GASTRIC RESIDUAL. PATIENT KEPT NPO. LOVENOX HELD FOR NOTED MARKED DROP IN HGB FROM 14.5 TO 10.1. CHARGE NURSE AWARE. WILL ENDORSE FOR F/UP AND CLARIFICATION. WOUND TREATMENT RENDERED. F/C STILL NOTED WITH BLOOD TINGED URINE WITH SEDIMENTS, SMALL CLOTS. AFEBRILE. IVF ORDERED, ON ATB. SAFETY AND COMFORT ENSURED. BED IN LOW AND LOCKED POSITION. WILL ENDORSE ACCORDINGLY FOR CONTINUITY OF CARE.
--- NOTE | 2017-11-28 07:30 | NUR ---
SHAMAR RN NOTE: RECEIVED PT ON BED, OBTUNDED. NO ACUTE DISTRESS NOTED. BREATHING EVEN AND UNLABORED WITH NORMAL RESPIRATIONS. [facility], SETTING ORDERED. NO FACIAL GRIMACING OR ANY SIGNS OF PAIN NOTED. TELEMETRY READING SR HR 60. IV ON RIGHT HAND G18 AND RIGHT FOREARM G22, INTACT AND PATENT, WITH IV NS @ 75 ML/HR, INFUSING WELL. GTUBE FEEDING STILL ON HOLD DUE TO EPISODES OF COFFEE GROUND EMESIS WITH RESIDUAL. MCCOY CATH INTACT AND PATENT WITH BLOOD TINGED URINE DRAINING, MD AWARE. TURNED AND REPOSITIONED Q2HRS. KEPT CLEAN, DRY AND COMFORTABLE. SAFETY AND FALL PRECAUTIONS IMPLEMENTED. WILL CONTINUE TO MONITOR.
[2017-11-28 08:00] VITALS: BP 104/68
[2017-11-28 08:08] LABS: ALBUMIN 2.2 g/dL (3.4-5.0); BILIRUBIN,DIRECT 0.1 mg/dL (0.0-0.2); BILIRUBIN,TOTAL 0.4 mg/dL (0.2-1.0); TOTAL PROTEIN, SERUM 7.3 g/dL (6.4-8.2)
--- NOTE | 2017-11-28 09:30 | NUR ---
SHAMAR RN NOTES DUE MEDS GIVEN
[2017-11-28] MEDS: PANTOPRAZOLE 40 MG VIAL IV SCH ×2 (09:40→16:59)
[2017-11-28] MEDS ORDERED: IOHEXOL-300 100 ML VIAL IV ONE (09:43)
[2017-11-28] MEDS ORDERED: CT SWABBABLE VALVE TRANS SET 1 EA INFUS.SET MC ONE (09:43)
[2017-11-28] MEDS: ACETYLCYSTEINE 10% 3,000 MG/30 ML VIAL PO SCH ×2 (10:00→16:59)
--- NOTE | 2017-11-28 10:02 | NUR ---
RT NOTE LATE ENTRY: @ [address] VIA AMBU BAG WITH NO COMPLICATIONS. TENISHA VALLES.
--- NOTE | 2017-11-28 10:18 | NUR ---
WOUND CARE CONSULT: PT NOT SEEN DUE TO PT OFF UNIT AT THIS TIME. DEFER TO PODIATRY FOR RT HEEL WOUND. ALL SKIN PROTECTION RECOMMENDATIONS IN PLACE. WILL SEE PT PT CONDITION PERMITS.
--- NOTE | 2017-11-28 10:40 | NUR ---
RT NOTE LATE ENTRY: @ [address] TO SHAMAR VIA AMBU BAG WITH NO COMPLICATIONS. TENISHA VALLES.
[2017-11-28 12:00] VITALS: BP 108/79
[2017-11-28] MEDS: POTASSIUM CL. PREMIX PERIPHER. 50 ML IV SCH ×4 (12:08→15:18)
--- NOTE | 2017-11-28 12:08 | NUR ---
SHAMAR RN NOTES STARTED KCL BAG #1.
--- NOTE | 2017-11-28 12:41 | NUR ---
TOPOLOGY TEACHER NOTES ACCUCHECK. BS 242 MG/DL. 6 UNITS HUM R INSULIN GIVEN PER SS.
--- NOTE | 2017-11-28 13:04 | NUR ---
SHAMAR RN NOTES STARTED KCL BAG #2.
--- NOTE | 2017-11-28 13:45 | NUR ---
PT KOLE'D ON MECHANICAL VENT. SX DONE T/O SHIFT. PT KOLE PATENT AND SECURE. AMBU BAG AT BEDSIDE. VENT PLUGGED INTO RED OUTLET. ALARMS ARE SET AND AUDIBLE. WILL CONTINUE TO MONITOR. Addendum: 11/28/17 at 1346 by MAYA TONG RT Amended: Links added.
--- NOTE | 2017-11-28 14:13 | NUR ---
SHAMAR RN NOTES STARTED KCL BAG #3.
--- NOTE | 2017-11-28 14:15 | NUR ---
SHAMAR RN NOTES VANCO IV NOT ADMINISTERED VANCO T. LEVEL 25.
--- NOTE | 2017-11-28 15:18 | NUR ---
SHAMAR RN NOTES STARTED KCL BAG #4. FINAL DOSE.
[2017-11-28 16:00] VITALS: BP 111/79
--- NOTE | 2017-11-28 17:56 | NUR ---
SHAMAR RN NOTES ACCUCHECK. BS 244 MG/DL. 6 UNITS HUM R GIVEN PER SS.
[2017-11-28] MEDS: VANCOMYCIN 0.75 GM in IV D5W 250 ML IV SCH (18:00)
--- NOTE | 2017-11-28 18:03 | NUR ---
SHAMAR RN NOTES VANCO IV NOT ADMINISTERED VANCO T. LEVEL 23.
--- NOTE | 2017-11-28 18:39 | NUR ---
SHAMAR RN NOTES: NO APPARENT DISTRESS NOTED. NO SOB. NO SIGNS/SYMPTOMS OF PAIN OR DISCOMFORT AT THIS TIME. TURNED AND REPOSITIONED. WOUND TREATMENT DONE ORDERED. SAFETY AND FALL PRECAUTIONS OBSERVED AND MAINTAINED. ALL NEEDS ATTENDED. WILL ENDORSE TO PM NURSE FOR CONTINUITY OF CARE.
--- NOTE | 2017-11-28 19:20 | NUR ---
RN SHAMAR NOTE RECEIVED PATIENT WITH HOB ELEVATED OBTUNDED, OPENS EYES, TRACH TO MECHANICAL VENT ON SETTINGS ORDERED, NO S/SX OF RESPIRATORY OR CARDIAC DISTRESS NOTED, TELE SR 61, BLE/BUE NON PITTING EDEMA, G TUBE CLAMPED, NPO, F/C DRAINING TO GRAVITY PINK COLORED URINE, RFA #22G AND R HAND #18G PATENT FLUSHING WELL, SITES CDI WITH NS AT 75ML/HR. SKIN KEPT CLEAN AND DRY. SAFETY MAINTAINED AT ALL TIMES BED IN LOW LOCKED POSITION HOB ELEVATED CALL LIGHT WITHIN REACH, WILL CONTINUE TO MONITOR FOR ANY CHANGES IN CONDITION.
[2017-11-28 20:00] VITALS: BP 107/68
[2017-11-29] VITALS: BP 102/64
[2017-11-29 04:00] VITALS: BP 113/78
[2017-11-29] MEDS: PIPERACILLIN /TAZOBACTAM 3.375 G in IV D5W 50 ML IV SCH (05:13)
[2017-11-29] MEDS: BLOOD SUGAR DIAGNOSTIC 1 EACH STRIP IN SCH ×4 (05:13→23:33)
[2017-11-29] MEDS: INSULIN REGULAR, HUMAN 100 UNIT/ML 3 ML VIAL SQ PRN ×4 (05:23→23:36)
--- NOTE | 2017-11-29 06:24 | NUR ---
RT NOTES PT REC'D TRACHED PORTEX 9 VIA [facility] VENT SETTINGS CHARTED. NO RESP DISTRESS NOTED. NO CHANGES MADE THROUGHOUT THE SHIFT. TRACH IS MIDLINE AND IN PLACE. SX'D THICK YELLOW MOD AMT OF SECRETIONS. ALARMS ARE SET AND AUDIBLE. VENT PLUGGED INTO RED OUTLET. AMBU BAG BEDSIDE. WILL CONTINUE TO MONITOR. Addendum: 11/29/17 at 0627 by LILLY BARNES RT Amended: Links added.
[2017-11-29 06:39] LABS: BASOPHILS % (AUTO) 0.1 % (0.0-2.0); EOSINOPHILS % (AUTO) 4.9 % (0.0-6.0); HEMATOCRIT 30 % (39-51); HEMOGLOBIN 9.8 g/dL (13.5-17.5); LYMPHOCYTES # (AUTO) 1.6 /CMM (0.8-4.8); LYMPHOCYTES % (AUTO) 12.9 % (20.0-44.0); MEAN CORPUSCULAR HGB CONC 33 g/dl (31.0-36.0); MEAN CORPUSCULAR VOLUME 90 fL (80-96); MONOCYTES % (AUTO) 7.8 % (2.0-12.0); NEUTROPHILS # (AUTO) 9.4 /CMM (1.8-8.9); NEUTROPHILS % (AUTO) 74.3 % (43.0-81.0); PLATELET COUNT (AUTO) 225 /CMM (150-450); RDW COEFFICIENT OF VARIATION 18.3 (11.5-15.0); RED BLOOD CELL COUNT(AUTO) 3.29 MIL/uL (4.5-6.0); WHITE BLOOD COUNT (AUTO) 12.7 K/uL (4.3-11.0)
[2017-11-29] MEDS: VANCOMYCIN 0.75 GM in IV D5W 250 ML IV SCH (06:48)
[2017-11-29 07:08] LABS: CALCIUM, SERUM 8.4 mg/dL (8.5-10.1); CREATININE 1.9 mg/dL (0.6-1.3); MAGNESIUM 2.4 mg/dL (1.8-2.4); PHOSPHORUS 2.8 mg/dL (2.5-4.9); POTASSIUM 3.7 mmol/L (3.5-5.1)
[2017-11-29 07:13] LABS: BAND % (MANUAL) 2 % (0.0-5.0); EOSINOPHILS % (MANUAL) 9 % (0-4); LYMPHOCYTES % (MANUAL) 16 % (16-48); METAMYELOCYTES % 1 % (0-0); MONOCYTES % (MANUAL) 9 % (0-11.0); NEUTROPHILS % (MANUAL) 63 (42-76)
--- NOTE | 2017-11-29 07:55 | NUR ---
RN NOTE RECEIVED PATIENT WITH HOB ELEVATED, PATIENT IS OBTUNDED, BUT IS ABLE TO OPENS EYES WITH TACTILE STIMULI, TRACH/VENT DEPENDENT ON APPROPRIATE SETTINGS ORDERED, NO S/SX OF RESPIRATORY DISTRESS. ON CNC MACHINIST SINUS RHYTHM HR OF 61. GT SITE INTACT AN PATENT, CLAMPED, AND NPO. F/C INTACT AND PATENT WITH ADEQUATE FLOW OF URINE. RIGHT FA AND RIGHT HAND INTACT AND PATENT. ALL SAFETY MEASURES DONE. BED LOW AND LOCKED POSITION PLACED CALL LIGHT WITHIN REACH, WILL CONTINUE TO MONITOR
[2017-11-29 08:00] VITALS: BP 114/76
[2017-11-29 08:10] LABS: AFP, TUMOR MARKER 2.3 ng/mL (0.0-8.3)
[2017-11-29] MEDS: ACETYLCYSTEINE 10% 3,000 MG/30 ML VIAL PO SCH ×2 (08:20→16:55)
[2017-11-29] MEDS: PANTOPRAZOLE 40 MG VIAL IV SCH ×2 (08:20→16:55)
--- NOTE | 2017-11-29 08:27 | NUR ---
RT NOTE PT RECEIVED TRACHED AND ON A VENT W NOTED SETTINGS. VENT ALARMS ARE ON AND AUDIBLE AND PLUGGED INTO RED OUTLET W AMBUBAG AT BEDSIDE. MODERATE AMTS OF THICK YELLOW/WHITE SECRETIONS SXD. NO DISTRESS NOTED AT THIS TIME WILL CONTINUE TO MONITOR AND PASS REPORT TO MOLDED PARTS INSPECTOR. Addendum: 11/29/17 at 0832 by PARISA STANTON RT Amended: Links added.
[2017-11-29 12:00] VITALS: BP 113/76
[2017-11-29] MEDS: PIPERACILLIN /TAZOBACTAM 2.25 G in IV D5W 50 ML IV SCH ×2 (12:13→17:22)
[2017-11-29] MEDS ORDERED: PIPERACILLIN /TAZOBACTAM 3.375 G in IV D5W 50 ML IV SCH (13:00)
[2017-11-29] MEDS: IV NS 0.9% 1,000 ML IV PRN (14:33)
[2017-11-29 14:40] LABS: APPEARANCE,URINE SL CLOUDY (CLEAR); BILIRUBIN,URINE NEGATIVE (NEGATIVE); BLOOD, URINE 3+ Ery/uL (NEGATIVE); COLOR,URINE YELLOW (YELLOW); KETONES,URINE NEGATIVE (NEGATIVE); LEUKOCYTE ESTERASE ,URINE NEGATIVE (NEGATIVE); NITRITE, URINE NEGATIVE (NEGATIVE); PROTEIN,URINE 2+ mg/dl (NEGATIVE); UGLUCOSE NEGATIVE (NEGATIVE); UROBILINOGEN,URINE 0.2 EU/dL (0.2)
[2017-11-29 14:49] LABS: CREATININE, URINE 75.6 MG/DL (30.0-125.0); URINE TOTAL PROTEIN 140.5 mg/dL (0-11.9)
[2017-11-29 14:53] LABS: BACTERIA,URINE None seen /HPF (None Seen); RBC,URINE 81-100 /HPF (0-2); SQUAMOUS EPITHELIAL CELL,UR Rare /HPF (None Seen)
[2017-11-29 16:00] VITALS: BP 100/73
--- NOTE | 2017-11-29 19:28 | NUR ---
RN NOTE PATIENT REMAINED STABLE THROUGHOUT SHIFT. NO ACUTE CHANGES OR DISTRESS NOTED. WILL ENDORSE TO NEXT SHIFT TO CONTINUE CONTINUITY OF CARE.
[2017-11-29 20:00] VITALS: BP 116/76
--- NOTE | 2017-11-29 20:32 | NUR ---
PLASTIC STRAIGHTENING ROLL OPERATOR OPENING NOTES RECEIVED REPORT FROM JENNIFER STEVEN. PATIENT OBTUNDED BUT OPENS EYES SPONTANEOUSLY. BREATHING EVEN & UNLABORED W/ TRACH INTACT & TOLERATING VENT SETTINGS AC 12, TV 500, FIO2 40%, PEEP 5. SATING @ 100%. ON TELE W/ SINUS EZRA, HR 57. NO RESPIRATORY OR CARDIAC DISTRESS NOTED. RIGHT HAND IV #18 & RIGHT FOREARM IV #22 INTACT & PATENT W/ DRESSING CDI, SALINE LOCKED. G-TUBE FLUSHING WELL W/ NO GTF @ THIS TIME D/T NPO STATUS. MCCOY CATH DRAINING YELLOW URINE, NO HEMATURIA NOTED. NO S/S OF PAIN OR DISCOMFORT @ THIS TIME. SAFETY MEASURES IN PLACE W/ BED ALARM ON & HOB ELEVATED FOR ASPIRATION PRECAUTIONS. WILL CONTINUE TO MONITOR.
[2017-11-29 21:43] LABS: EOSINOPHIL,URINE Rare
[2017-11-30] VITALS (8 sets, daily range): BP systolic 104–128; BP diastolic 66–87
--- NOTE | 2017-11-30 04:48 | NUR ---
RT NOTES PT REC'D TRACHED PORTEX [address] [facility] VENT SETTINGS CHARTED. NO RESP DISTRESS NOTED. NO CHANGES MADE THROUGHOUT THE SHIFT. TRACH IS MIDLINE AND IN PLACE. SX'D THICK YELLOW MOD AMT OF SECRETIONS. ALARMS ARE SET AND AUDIBLE. VENT PLUGGED INTO RED OUTLET. AMBU BAG BEDSIDE. WILL CONTINUE TO MONITOR. Addendum: 11/30/17 at 0448 by LILLY BARNES RT Amended: Links added.
[2017-11-30] MEDS: BLOOD SUGAR DIAGNOSTIC 1 EACH STRIP IN SCH ×3 (05:17→17:24)
[2017-11-30] MEDS: IV NS 0.9% 1,000 ML IV PRN (05:17)
[2017-11-30] MEDS: INSULIN REGULAR, HUMAN 100 UNIT/ML 3 ML VIAL SQ PRN ×3 (05:26→17:27)
[2017-11-30] MEDS ORDERED: VANCOMYCIN 0.75 GM in IV NS 0.9% 250 ML IV SCH (06:00)
[2017-11-30 06:36] LABS: EOSINOPHILS % (AUTO) 4.2 % (0.0-6.0); HEMATOCRIT 31 % (39-51); HEMOGLOBIN 10.3 g/dL (13.5-17.5); LYMPHOCYTES # (AUTO) 1.8 /CMM (0.8-4.8); LYMPHOCYTES % (AUTO) 13.4 % (20.0-44.0); MEAN CORPUSCULAR HGB CONC 33 g/dl (31.0-36.0); MEAN CORPUSCULAR VOLUME 91 fL (80-96); MONOCYTES # (AUTO) 0.1 /CMM (0.1-1.30); MONOCYTES % (AUTO) 0.8 % (2.0-12.0); NEUTROPHILS # (AUTO) 10.8 /CMM (1.8-8.9); NEUTROPHILS % (AUTO) 81.6 % (43.0-81.0); PLATELET COUNT (AUTO) 230 /CMM (150-450); RDW COEFFICIENT OF VARIATION 18.4 (11.5-15.0); RED BLOOD CELL COUNT(AUTO) 3.42 MIL/uL (4.5-6.0); WHITE BLOOD COUNT (AUTO) 13.2 K/uL (4.3-11.0)
[2017-11-30 06:57] LABS: BILIRUBIN,TOTAL 0.2 mg/dL (0.2-1.0); CALCIUM, SERUM 7.8 mg/dL (8.5-10.1); MAGNESIUM 2.3 mg/dL (1.8-2.4); PHOSPHORUS 3.4 mg/dL (2.5-4.9); POTASSIUM 3.5 mmol/L (3.5-5.1); TOTAL PROTEIN, SERUM 6.7 g/dL (6.4-8.2)
[2017-11-30 07:10] LABS: IMMUNOGLOBULIN A, SERUM 187 mg/dL (90-386); IMMUNOGLOBULIN G, SERUM 1050 mg/dL (700-1600); IMMUNOGLOBULIN M, SERUM 64 mg/dL (20-172)
--- NOTE | 2017-11-30 07:10 | NUR ---
TELE/RN INITIAL NOTES RECEIVED PT IN BED IN SEMI FOWLERS POSITION. WITH TRACH, TOLERATING WELL VENT SETTINGS: AC 12, TV 500, FI02 40%, PEEP 5. SATURATING WELL. SINUS EZRA ON TELE MONITOR. NO SIGNS OF PAIN AT THIS TIME. WITH ONGOING IVF OF NS AT 75 ML/HR INFUSING WELL ON SAMY. RH SL INTACT. GTUBE IN PLACED. NPO AT THIS TIME. FC IN PLACED DRAINING YELLOW URINE. NO HEMATURIA NOTED. ASPIRATION PRECAUTION OBSERVED. SAFETY MEASURES OBSERVED. CALL LIGHT WITHIN REACH. WILL CONT TO MONITOR .
[2017-11-30] MEDS: PANTOPRAZOLE 40 MG VIAL IV SCH ×2 (08:19→17:05)
[2017-11-30] MEDS: ACETYLCYSTEINE 10% 3,000 MG/30 ML VIAL PO SCH ×2 (09:00→17:39)
[2017-11-30 10:16] LABS: *SPE A/G RATIO 0.6 (0.7-1.7); *SPE ALBUMIN 2.2 g/dL (2.9-4.4); *SPE ALPHA-1-GLOBULIN 0.3 g/dL (0.0-0.4); *SPE ALPHA-2-GLOBULIN 1.1 g/dL (0.4-1.0); *SPE BETA GLOBULIN 0.9 g/dL (0.7-1.3); *SPE GLOBULIN, TOTAL 3.5 g/dL (2.2-3.9); *SPE M-SPIKE Not Observed g/dL (Not Observed); *SPEGAMMA GLOBULIN 1.1 g/dL (0.4-1.8)
[2017-11-30] MEDS ORDERED: IV D5/0.45 NACL 1,000 ML IV ONE (11:00)
--- NOTE | 2017-11-30 11:00 | NUR ---
RN NOTES CALLED RT TO FOLLOW UP ON PT'S BREATHING TREATMENT DUE AT 0900.
--- NOTE | 2017-11-30 11:23 | NUR ---
RT 9AM MUCOMYST NOT GIVEN RT NOT MADE AWARE WILL MONITOR
--- NOTE | 2017-11-30 16:21 | NUR ---
RT NOTE PT RECEIVED TRACHED AND ON A VENT W NOTED SETTINGS. VENT ALARMS ARE ON AND AUDIBLE AND PLUGGED INTO RED OUTLET W AMBUBAG AT BEDSIDE. MODERATE AMTS OF THICK YELLOW/WHITE SECRETIONS SXD. NO DISTRESS NOTED AT THIS TIME WILL CONTINUE TO MONITOR.
[2017-11-30] MEDS: CEFEPIME 1 GM in IV D5W 50 ML IV SCH (17:06)
--- NOTE | 2017-11-30 19:10 | NUR ---
RN NOTES PT REMAINED IN STABLE CONDITION. TOLERATING CURRENT VENT SETTINGS. NO SIGNS OF PAIN. KEPT ON NPO. NO HEMATURIA NOTED. STOOL SPECIMEN SENT TO LAB FOR OB. IV LINES KEPT INTACT AND PATENT. FC KEPT IN PLACED. SAFETY MEASURES MAINTAINED. ASPIRATION PRECAUTION OBSERVED AT ALL TIMES. ALL NEEDS ATTENDED. ENDORSED TO PM SHIFT NURSE FOR CHELLE
[2017-11-30 19:39] LABS: OCCULT BLOOD STOOL NEGATIVE (NEGATIVE)
--- NOTE | 2017-11-30 19:59 | NUR ---
RT PATIENT REC'D TRACHED ON [facility] VENT WITH ORDERED SETTINGS JOSELITO WELL. VENT ALARMS CHECKED + AUDIBLE. CUFF PRESSURE CHECKED [employer]. PATIENT NON RESPONSIVE TO VERBAL COMMANDS, NO SOB NOTED. PATIENT SUCTIONED WITH MOD AMT OF PALE SEMITHICK SECRETIONS. B/S [facility]. AMBU BAG AT HOB Addendum: 11/30/17 at 2227 by RICARDO FOX RT Amended: Links added.
--- NOTE | 2017-11-30 20:00 | NUR ---
RECEIVED PTS IN BED REMAINS ON MECHANICAL VENTILATOR HOB ELEVATED FOR ASPIRATION PRECAUTION , PTS EYE OPENING BUT NON VERBAL , REMAINS NPO ,SPOKE TO ELECTRICAL WORKER KAMRAN CAO IV FLUIDS WITH ORDER NOTED AND CARRIED OUT , V/S STABLE AFEBRILE , NO SOB NO DISTRESS NOTED DUE MEDS GIVEN ORDERED ALL NEEDS ATTENDED TOO KEPT PTS CLEAN DRY AND COMFORTABLE
[2017-12-01] VITALS: BP 133/83
--- NOTE | 2017-12-01 | NUR ---
BLOOD SUGAR FOR 12MN IS 209 6 UNITS OF REGULAR INSULIN GIVEN ORDERED, PTS CONTINUE ON D5 1/2 NS INFUSING WELL KEPT PTS CLEAN DRY AND COMFORTABLE.
[2017-12-01] MEDS: IV D5/0.45 NACL 1,000 ML IV PRN ×2 (00:44→09:02)
[2017-12-01] MEDS: INSULIN REGULAR, HUMAN 100 UNIT/ML 3 ML VIAL SQ PRN ×5 (00:50→23:37)
[2017-12-01] MEDS: BLOOD SUGAR DIAGNOSTIC 1 EACH STRIP IN SCH ×5 (00:51→23:37)
[2017-12-01 04:00] VITALS: BP 137/84
[2017-12-01] MEDS: CEFEPIME 1 GM in IV D5W 50 ML IV SCH ×2 (05:59→17:43)
[2017-12-01 06:32] LABS: BASOPHILS # (AUTO) 0.1 /CMM (0.0-0.2); BASOPHILS % (AUTO) 1.1 % (0.0-2.0); EOSINOPHILS % (AUTO) 3.7 % (0.0-6.0); HEMATOCRIT 32 % (39-51); HEMOGLOBIN 10.5 g/dL (13.5-17.5); LYMPHOCYTES % (AUTO) 15.7 % (20.0-44.0); MEAN CORPUSCULAR HGB CONC 33 g/dl (31.0-36.0); MEAN CORPUSCULAR VOLUME 91 fL (80-96); MONOCYTES # (AUTO) 0.7 /CMM (0.1-1.30); MONOCYTES % (AUTO) 5.8 % (2.0-12.0); NEUTROPHILS # (AUTO) 9.5 /CMM (1.8-8.9); NEUTROPHILS % (AUTO) 73.7 % (43.0-81.0); PLATELET COUNT (AUTO) 303 /CMM (150-450); RDW COEFFICIENT OF VARIATION 18.4 (11.5-15.0); RED BLOOD CELL COUNT(AUTO) 3.53 MIL/uL (4.5-6.0); WHITE BLOOD COUNT (AUTO) 12.9 K/uL (4.3-11.0)
--- NOTE | 2017-12-01 06:48 | NUR ---
blood sugar for 6am is 228mg/dl-6 units of regular insulin given per sliding scale,pts remains on mechanical ventilator , well tolerated , no sob no distress noted , will endorse to rn day shift for continuity of care.
[2017-12-01 07:08] LABS: CALCIUM, SERUM 8.6 mg/dL (8.5-10.1); CREATININE 1.9 mg/dL (0.6-1.3); MAGNESIUM 2.2 mg/dL (1.8-2.4); PHOSPHORUS 3.6 mg/dL (2.5-4.9); POTASSIUM 3.5 mmol/L (3.5-5.1)
--- NOTE | 2017-12-01 07:10 | NUR ---
TELE/RN INITIAL NOTES RECEIVED REPORT FROM NIGHT NURSELAISHA. PT IN BED IN SEMI POLLARD POSITION, ASLEEP, OPEN EYES TO NAME AND TOUCH. ON VENT, TOLERATING CURRENT SETTINGS. IN NO SIGNS OF DISTRESS. NO SIGNS OF PAIN NOTED. WITH ONGOING IVF OF D5 1/2 NS @ 125 ML/HR INFUSING WELL ON RFA. RH SL INTACT. BOTH IN NO SIGNS OF INFECTION. FC IN PLACED DRAINING YELLOW COLORED URINE. GT INTACT AND CLAMPED. STILL ON NPO. ASPIRATION PRECAUTION OBSERVED. SAFETY MEASURES OBSERVED. CALL LIGHT WITHIN REACH. WILL CONT TO MONITOR Addendum: 12/01/17 at 0756 by JEREMIAS SWEET RN ADD SR ON TELEMONITOR
--- NOTE | 2017-12-01 07:15 | NUR ---
TELE/RN CLOSING NOTES PT REMAINED IN STABLE CONDITION. VENT SETTING TOLERATING WELL. NO ACUTE DISTRESS NOTED THROUGHOUT SHIFT. CURRENT GT FEEDING TOLERATING WELL. KEPT IV LINES INTACT AND PATENT. KEPT FC INTACT. SAFETY MEASURES OBSERVED AT ALL TIMES. ASPIRATION PRECAUTION MAINTAINED. ALL NEEDS ATTENDED. ENDORSED TO PM NURSE FOR CHELLE Addendum: 12/01/17 at 2022 by JEREMIAS SWEET RN NOTES FOR 1914
[2017-12-01 08:00] VITALS: BP 130/73
[2017-12-01] MEDS: PANTOPRAZOLE 40 MG VIAL IV SCH ×2 (08:14→17:43)
--- NOTE | 2017-12-01 08:55 | NUR ---
RN NOTES SEEN BY DR SCHMITZ. PER , "WILL SEE PT PROBABLY ON SUNDAY."
--- NOTE | 2017-12-01 09:44 | NUR ---
RN NOTES NOTIFIED RT FOR DUE MUCOMYST
--- NOTE | 2017-12-01 10:08 | NUR ---
RN NOTES RT NOTIFIED RN, MUCOMYST ROUTE WAS PO, PT ON NPO CALLED PHARMACY TO VERIFY. PER PHARMACIST WILL D/C ORDER
--- NOTE | 2017-12-01 10:10 | NUR ---
RN NOTES SEEN BY DR HARPER, VERBAL ORDER TPN/PPN FOR PT
--- NOTE | 2017-12-01 10:45 | NUR ---
RN NOTES DNP GAYLE LUU ON FLOOR, NOTIFIED HIM THAT PT WAS SEEN BY DR SCHMITZ AND DR HARPER. AGREED TO TPN. VERIFIED IF STILL WANTS TO CONT D5 1/2 NS, PER LING LUU D/C D5 1/2 NS AND CHANGE TO NS @ 60 ML/HR, THEN D/C IVF ONCE TPN INITIATED
[2017-12-01 12:00] VITALS: BP 115/81
[2017-12-01] MEDS ORDERED: IV NS 0.9% 1,000 ML IV PRN (12:00)
[2017-12-01] MEDS ORDERED: TPN/PPN PER PHARMACY XX PRN (12:00)
--- NOTE | 2017-12-01 12:25 | NUR ---
RN NOTES CALLED DR SCHMITZ TO VERIFY IF OK TO START TPN OR RESUME GT FEEDING. PER MD, OK TO RESUME GT FEEDING AND WILL SEE PT ON SUNDAY. NOTIFIED LING LUU MD AGREED
[2017-12-01] MEDS: GLUCERNA 1.2 1,000 ML BOTTLE GT PRN (13:42)
[2017-12-01 16:00] VITALS: BP 119/83
--- NOTE | 2017-12-01 17:50 | NUR ---
RT NOTE: PATIENT RECEIVED TRACHED ON MECHANICAL VENT. ALARMS VERIFIED AND AUDIBLE. SUCTIONED MODERATE-LARGE THICK WORKMAN SECRETIONS. VENT PLUGGED INTO RED OUTLET. AMBU BAG AT [facility].
[2017-12-01 20:00] VITALS: BP 132/77
--- NOTE | 2017-12-01 21:33 | NUR ---
RN NOTES RECEIVED PATIENT AWAKE IN BED. NO RESPIRATORY DISTRESS OR SHORTNESS OF BREATH. BREATHING EVEN AND UNLABORED. VENT SETTING WELL TOLERATED. NO PHYSICAL MANIFESTATION OF PAIN OR DISCOMFORT. GTUBE IN PLACE AND INTACT. FEEDING WELL TOLERATED. HOB ELEVATED. NO RESIDUAL. KEPT CLEAN AND DRY AND COMFORTABLE. WILL CONTINUE TO MONITOR.
[2017-12-02] VITALS: BP 137/82
[2017-12-02 04:00] VITALS: BP 139/93
[2017-12-02] MEDS: CEFEPIME 1 GM in IV D5W 50 ML IV SCH ×2 (06:15→17:03)
[2017-12-02] MEDS: INSULIN REGULAR, HUMAN 100 UNIT/ML 3 ML VIAL SQ PRN ×4 (06:16→23:57)
[2017-12-02] MEDS: BLOOD SUGAR DIAGNOSTIC 1 EACH STRIP IN SCH ×4 (06:17→23:55)
--- NOTE | 2017-12-02 06:39 | NUR ---
RN CLOSING NOTES NO SIGNIFICANT CHANGE OF CONDITION. BREATHING EVEN AND UNLABORED. VENT SETTING WELL TOLERATED. VITAL SIGNS WNL. KEPT CLEAN AND DRY. WILL ENDORSE TO AM SHIFT FOR CONTINUITY OF CARE.
--- NOTE | 2017-12-02 07:00 | NUR ---
GOVERNMENT RELATIONS ANALYST INITIAL NOTES RECEIVED PT FROM PM NURSE, PT RESTING IN BED, NO ACUTE CHANGES NOTED. NO SOB, ALL SAFETY MEASURES INITIATED, PT NONVERBAL OBTUNDED, ON VENT SETTINGS MD ORDERED SAT ABOVE 97%, ON TELE MON SB WITH HR 52, MCCOY CATH DRAINING URINE VIA GRAVITY, RT FA 22G IV, RT HAND 18 G IV ALL INTACT AND PATENT NO INFILTRATION NOTED. GTUBE FEEDING INFUSING GLUCERNA @ 50 ML/HR NO RESIDUAL NOTED. WILL INCREASE TO MD ORDER 75 ML/HR, WILL CONTINUE TO MONITOR.
[2017-12-02 08:00] VITALS: BP 129/82
[2017-12-02 08:53] LABS: HEMOGLOBIN 10.9 g/dL (13.5-17.5); LYMPHOCYTES % (AUTO) 25.6 % (20.0-44.0)
[2017-12-02 08:59] LABS: BASOPHILS % (AUTO) 0.3 % (0.0-2.0); EOSINOPHILS % (AUTO) 5.8 % (0.0-6.0); HEMATOCRIT 33 % (39-51); LYMPHOCYTES # (AUTO) 2.4 /CMM (0.8-4.8); MEAN CORPUSCULAR HGB CONC 33 g/dl (31.0-36.0); MEAN CORPUSCULAR VOLUME 90 fL (80-96); MONOCYTES # (AUTO) 0.4 /CMM (0.1-1.30); MONOCYTES % (AUTO) 3.7 % (2.0-12.0); NEUTROPHILS # (AUTO) 6.1 /CMM (1.8-8.9); NEUTROPHILS % (AUTO) 64.6 % (43.0-81.0); PLATELET COUNT (AUTO) 241 /CMM (150-450); RDW COEFFICIENT OF VARIATION 18.2 (11.5-15.0); RED BLOOD CELL COUNT(AUTO) 3.73 MIL/uL (4.5-6.0); WHITE BLOOD COUNT (AUTO) 9.4 K/uL (4.3-11.0)
[2017-12-02 09:04] LABS: CALCIUM, SERUM 8.7 mg/dL (8.5-10.1); CREATININE 1.8 mg/dL (0.6-1.3); MAGNESIUM 2.2 mg/dL (1.8-2.4); POTASSIUM 3.1 mmol/L (3.5-5.1)
[2017-12-02] MEDS: PANTOPRAZOLE 40 MG VIAL IV SCH ×2 (09:14→16:07)
--- NOTE | 2017-12-02 10:43 | NUR ---
SAFETY ADMINISTRATOR NOTES PER MD ORDER TO REDUCE GLUCERNA GTUBE FEEDING DOWN TO 65 ML/HR.
[2017-12-02 12:00] VITALS: BP 125/82
[2017-12-02 16:00] VITALS: BP 122/77
[2017-12-02] MEDS: GLUCERNA 1.2 1,000 ML BOTTLE GT PRN (17:35)
--- NOTE | 2017-12-02 18:40 | NUR ---
FLOOR SCRUBBER ENDING NOTES PT WITH NO ACUTE CHANGES NOTED, BED BATH PROVIDED, WOUND TX ORDERED DONE, VENT SETTINGS TOLERATING WELL NO SOB OR DISTRESS, MCCOY CATH DRAINING URINE VIA GRAVITY. ON TELE MON SB, ACU CHECKS DONE Q6HRS, IV SITE INTACT, GTUBE FEEDING TOLERATING WELL AT 65 ML/HR, ALL DUE MEDS GIVEN, ALL NEEDS MET, WILL ENDORSE TO PM NURSE.
--- NOTE | 2017-12-02 19:20 | NUR ---
GEOPHYSICAL LABORATORY CHIEF INITIAL NOTES, RECEIVED PATIENT IN BED WITH EYES CLOSED, OBTUNDED, NONVERBAL, UNABLE TO COMMUNICATE NEEDS AND CONCERNS, ON MECHANICAL VENTILATOR, TOLERATED VENT SETTINGS WELL, NO SOB/ACUTE DISTRESS NOTED AT THIS TIME, IV SITES INTACT AND PATENT IN RIGHT HAND, IVF INFUSING WELL AND PATIENT TOLERATED WELL, NO S/S OF INFILTRATION NOTED AT THIS TIME, ON GTF, INFUSING WELL AND PATIENT TOLERATED WELL, HOB ELEVATED AT ALL TIMES FOR ASPIRATION PRECAUTIONS, ALL NEEDS PROVIDED AND ATTENDED, BED LOCKED AND IN LOWEST POSITION, REPOSITION PROVIDED, ALL NEEDS ATTENDED AND RENDERED, CALL LIGHT W/I REACH, WILL CONTINUE TO MONITOR CLOSELY. Addendum: 12/03/17 at 0559 by AKASH JOHNSON RN BOTH IV SITES INFILTRATED, MISTAKEN SINCE PATIENT IS HIGHLY EDEMATOUS OF BILATERAL UPPER EXTREMITIES. Addendum: 12/03/17 at 0654 by AKASH JOHNSON RN BOTH IV SITES INFILTRATED UPON INITIAL ROUNDS, MISTAKEN SINCE PATIENT IS HIGHLY EDEMATOUS OF BUE
[2017-12-02 20:00] VITALS: BP 136/86
[2017-12-03] VITALS (7 sets, daily range): BP systolic 115–128; BP diastolic 71–85
[2017-12-03] MEDS: CEFEPIME 1 GM in IV D5W 50 ML IV SCH ×2 (06:09→17:18)
[2017-12-03] MEDS: BLOOD SUGAR DIAGNOSTIC 1 EACH STRIP IN SCH ×4 (06:09→23:31)
[2017-12-03] MEDS: INSULIN REGULAR, HUMAN 100 UNIT/ML 3 ML VIAL SQ PRN ×4 (06:11→23:34)
[2017-12-03 06:12] LABS: BASOPHILS % (AUTO) 0.6 % (0.0-2.0); EOSINOPHILS % (AUTO) 4.9 % (0.0-6.0); HEMATOCRIT 33 % (39-51); HEMOGLOBIN 10.8 g/dL (13.5-17.5); LYMPHOCYTES # (AUTO) 2.4 /CMM (0.8-4.8); LYMPHOCYTES % (AUTO) 29.1 % (20.0-44.0); MEAN CORPUSCULAR HGB CONC 33 g/dl (31.0-36.0); MEAN CORPUSCULAR VOLUME 90 fL (80-96); MONOCYTES # (AUTO) 0.6 /CMM (0.1-1.30); MONOCYTES % (AUTO) 7.4 % (2.0-12.0); NEUTROPHILS # (AUTO) 4.7 /CMM (1.8-8.9); PLATELET COUNT (AUTO) 374 /CMM (150-450); RDW COEFFICIENT OF VARIATION 17.9 (11.5-15.0); RED BLOOD CELL COUNT(AUTO) 3.62 MIL/uL (4.5-6.0); WHITE BLOOD COUNT (AUTO) 8.1 K/uL (4.3-11.0)
[2017-12-03 06:27] LABS: CALCIUM, SERUM 8.8 mg/dL (8.5-10.1); CREATININE 1.9 mg/dL (0.6-1.3); MAGNESIUM 2.2 mg/dL (1.8-2.4); PHOSPHORUS 3.8 mg/dL (2.5-4.9); POTASSIUM 3.2 mmol/L (3.5-5.1)
[2017-12-03] MEDS: GLUCERNA 1.2 1,000 ML BOTTLE GT PRN (06:48)
--- NOTE | 2017-12-03 07:00 | NUR ---
POTTERY DECORATOR CLOSING NOTES, PATIENT IN BED WITH EYES CLOSED, OBTUNDED, NONVERBAL, UNABLE TO COMMUNICATE NEEDS AND CONCERNS, ON MECHANICAL VENTILATOR, TOLERATED VENT SETTINGS WELL, NO SOB/ACUTE DISTRESS NOTED AT THIS TIME, NEW IV SITE IN RIGHT WRIST, INTACT AND PATENT, IVF INFUSING WELL AND PATIENT TOLERATED WELL, ON GTF INFUSING WELL AND PATIENT TOLERATED WELL, NO RESIDUAL AT THIS TIME, HOB ELEVATED AT ALL TIMES FOR ASPIRATION PRECAUTIONS, ALL NEEDS PROVIDED AND ATTENDED, BED LOCKED AND IN LOWEST POSITION, NO SIGNIFICANT CHANGE OF CONDITION DURING SUCTION WORKER, CALL LIGHT W/I REACH, WILL ENDORSE CONTINUITY OF CARE TO ONCOMING NURSE.
--- NOTE | 2017-12-03 07:15 | NUR ---
SENIOR JAVA DEVELOPER INITIAL NOTES RECEIVED REPORT AND PT FROM PM NURSE. PT RESTING IN BED, ALL SAFETY MEASURES INITIATED, OBTUNDED, NONVERBAL, ON TELE MON SB WITH HR 56 WITH OCC PVCS, MCCOY CATH DRAINING URINE VIA GRAVITY, ON VENT MANAGEMENT SETTINGS ORDERED BY MD SAT ABOVE 94%, NO SOB OR ACUTE DISTRESS, GTUBE FEEDING INTACT CLAMPED AND NO FEEDING AT THIS TIME DUE TO POSSIBLE EDG, RT WRIST IV SITE INTACT AND PATENT RUNNING IV FLUIDS MD ORDERED, WILL CONTINUE TO MONITOR.
[2017-12-03] MEDS: PANTOPRAZOLE 40 MG VIAL IV SCH ×2 (08:46→17:18)
--- NOTE | 2017-12-03 18:52 | NUR ---
CASE MANAGER ENDING NOTES PT RESTING IN BED WITH NO ACUTE CHANGES NOTED, ALL DUE MEDS GIVEN, ALL NEEDS MET, ALL SAFETY MEASURES INITIATED. BED BATH PROVIDED, WOUND TX PROVIDED, WILL ENDORSE TO PM NURSE.
--- NOTE | 2017-12-03 19:28 | NUR ---
PATIENT RCVD TRACHED ON [facility] VENT WITH NOTED SETTINGS, VENT PLUGGED INTO RED OUTLET ,VENT ALARMS SET AND AUDIBLE. CUFF PRESSURE CHECKED NAIL KEGGER. NO RESPIRATORY DISTRESS NOTED. SUCTIONED WITH MODERATE AMOUNT OF PALE YELLOW THICK SECRETIONS. AMBU BAG AT [facility]. WILL CONTINUE TO MONITOR.
--- NOTE | 2017-12-03 19:30 | NUR ---
RN OPENING NOTES: RECEIVED PATIENT ON BED OBTUNDED, WITH SPONTANEOUS EYE OPENING BUT DOES NOT TRACK; [facility] WITH SETTINGS ORDERED. NOT IN APPARENT DISTRESS, SUCTIONED PRN. SINUS EZRA ON THE MONITOR WITH NOTED TWAVE INVERSION. IV ACCESS PATENT ON R WRIST G22 IVF INFUSING ORDERED. GT INTACT, FEEDING ONGOING ORDERED. MONITORED FOR RESIDUALS. FC INTACT, DRAINING TO A CLOSED SYSTEM, NOTED WITH SLIGHT BLOOD TINGE ON URINE. MONITORED ACCORDINGLY; SAFETY MEASURES ENSURED,ASPIRATION PRECAUTION OBSERVED, CONTINUOUSLY MONITORED.
[2017-12-04] VITALS: BP 135/84
[2017-12-04 04:00] VITALS: BP 137/88
[2017-12-04] MEDS: GLUCERNA 1.2 1,000 ML BOTTLE GT PRN ×2 (04:16→16:55)
[2017-12-04] MEDS: BLOOD SUGAR DIAGNOSTIC 1 EACH STRIP IN SCH ×4 (05:40→23:21)
[2017-12-04] MEDS: CEFEPIME 1 GM in IV D5W 50 ML IV SCH ×2 (05:40→17:03)
[2017-12-04] MEDS: INSULIN REGULAR, HUMAN 100 UNIT/ML 3 ML VIAL SQ PRN ×4 (05:49→23:19)
--- NOTE | 2017-12-04 06:47 | NUR ---
RN CLOSING NOTES: PATIENT REMAINED TRACH TO MECH VENT, NOT IN APPARENT DISTRESS ON CURRENT SETTINGS. NO ACUTE CHANGES OCCURRED OVERNIGHT. REMAINED BRADYCARDIC ON THE MONITOR. FEEDING ORDERED. URINE IN MCCOY BAG NOTED TO BE CLEARING UP. SKIN CARE RENDERED. SAFETY MEASURES AND ASPIRATION PRECAUTIONS ENSURED AT ALL TIMES. CONTINUOUSLY MONITORED.
--- NOTE | 2017-12-04 07:34 | NUR ---
JEWELRY MECHANIC NOTE PATIENT IN BED , ALL NEEDS ATTENDED OBTUNDED , ON TELE MONITOR SB 54 , NOTE WITH FACIAL TWEETING , WITH MCCOY CATH TO GRAVITY WITH YELLOW COLOR WITH SOME BLOOD SEDIMENT, ON G TUBE FEEDING ORDERED , KEEP HOB ELEVATED AT ALL TIME, RT WRIST HL INTACT WITH ON IVF ORDERER, BED IN LOWEST AND LOCKED POSITION , NO SOB NOTED AT THIS TIME ,WILL CONT TO MONITOR CLOSELY
[2017-12-04 08:00] VITALS: BP 138/85
[2017-12-04 08:30] LABS: BASOPHILS % (AUTO) 0.4 % (0.0-2.0); EOSINOPHILS % (AUTO) 5.9 % (0.0-6.0); HEMATOCRIT 31 % (39-51); HEMOGLOBIN 10.3 g/dL (13.5-17.5); LYMPHOCYTES # (AUTO) 1.9 /CMM (0.8-4.8); LYMPHOCYTES % (AUTO) 27.3 % (20.0-44.0); MEAN CORPUSCULAR HGB CONC 33 g/dl (31.0-36.0); MEAN CORPUSCULAR VOLUME 90 fL (80-96); MONOCYTES # (AUTO) 0.2 /CMM (0.1-1.30); MONOCYTES % (AUTO) 2.4 % (2.0-12.0); NEUTROPHILS # (AUTO) 4.6 /CMM (1.8-8.9); PLATELET COUNT (AUTO) 329 /CMM (150-450); RDW COEFFICIENT OF VARIATION 18.5 (11.5-15.0); RED BLOOD CELL COUNT(AUTO) 3.48 MIL/uL (4.5-6.0); WHITE BLOOD COUNT (AUTO) 7.1 K/uL (4.3-11.0)
[2017-12-04 08:36] LABS: ALBUMIN 2.1 g/dL (3.4-5.0); BILIRUBIN,TOTAL 0.1 mg/dL (0.2-1.0); CALCIUM, SERUM 8.2 mg/dL (8.5-10.1); CREATININE 1.7 mg/dL (0.6-1.3); PHOSPHORUS 3.2 mg/dL (2.5-4.9); POTASSIUM 4.5 mmol/L (3.5-5.1); TOTAL PROTEIN, SERUM 6.6 g/dL (6.4-8.2)
[2017-12-04] MEDS: PANTOPRAZOLE 40 MG VIAL IV SCH ×2 (08:41→16:31)
--- NOTE | 2017-12-04 08:53 | NUR ---
RESTORATION SILVERSMITH NOTE SEEN BY DR YOUNG COIL TESTER , WILL F\U , ALL NEEDS ATTENDED, TRACH SUCTION DONE. WILL CONT TO MONITOR CLOSELY
--- NOTE | 2017-12-04 09:53 | NUR ---
FRONT WORKER NOTE SEEN BY DR REYNOLDS SETTER JUICE PACKAGING MACHINES NOTIFIED THAT BOTH UPPER AND LOWER LETHALITIES WITH EDEMA STATED TO CHANGE IVF TO 50 ML PER HOUR ALSO NOTIFIED THAT PATIENT HAS FACIAL TWITCHING, STATED HE WAS LIKE THIS BEFORE ,NO NEW ORDER GIVEN AT THIS TIME ,WILL CONT TO MONITOR CLOSELY
--- NOTE | 2017-12-04 10:50 | NUR ---
FRANCISCO STEVEN NOTE SEEN BY AND LING AWARE THAT OLIMPIA STILL FACIAL TWITCHING AND ASKED TO CHECK HIS MED RECON ,STATED THAT WILL SEE SOON Addendum: 12/04/17 at 1755 by DIMITRI CHAMBERS RN SEEN BY RUSSEL DUBON CORRECTION IN SPELLING NOTIFIED THAT MED RECON IS NOT DONE YET ,STATED THAT WILL CHECK IT OUT
[2017-12-04 12:00] VITALS: BP 129/82
--- NOTE | 2017-12-04 15:11 | NUR ---
ASSEMBLER SEAT NOTE SEEN BY RUSSEL DUBON NOTIFIED THAT PATIENT IN TELE MONITOR SR [id number] , BUT ASYMPTOMATIC , ALSO SEEN THAT PATIENT HAS FACIAL TWITCHING AND ABDOMINAL DISTENTION, STATED THAT HIS PERMANENT SIDE EFFECTS FROM MEDICATION OK TO POSSIBLE TO DISCHARGE, WILL F\U WITH METAL CASTING TRADES WORKER
[2017-12-04 16:00] VITALS: BP 109/76
--- NOTE | 2017-12-04 17:45 | NUR ---
CEMETERY COUNSELOR NOTE CONT ON G TUBE FEEDING ORDERED, KEEP HOB ELEVATED AT ALL TIME .ON VENT SETTING ORDERED. WILL CONT TO MONITOR CLOSELY
--- NOTE | 2017-12-04 18:18 | NUR ---
PATIENT RECEIVED TRACHED ON MECHANICAL VENTILATION. PORTEX [address] SX DONE. SMALL THICK WHITE/YELLOW SECRETIONS NOTED. TRACH SECURED AND PATENT AT ALL TIMES. VENT PLUGGED INTO RED OUTLET. ALARMS ON AND AUDIBLE. FLORI BAG @ HOB. NO DISTRESS NOTED. MONITORED CLOSELY. Addendum: 12/04/17 at 1818 by BRITTANY BOWEN RT Amended: Links added.
--- NOTE | 2017-12-04 19:15 | NUR ---
ASSOCIATE PROFESSOR OF BIBLICAL STUDIES NOTE ALL NEEDS ATTENDED ,NOT IN ACUTE DISTRESS ,CONT TRACH AND VENT SETTING
--- NOTE | 2017-12-04 19:21 | NUR ---
FELLER OPERATOR NOTES RECEIVED PT ON BED. ON [facility] VENT SETTING SATURATING WELL. ON TELE MONITOR SB 52. MCCOY CATHETER DRAINING WELL. IV ACCESS ON RIGHT WRIST KCL 1/2 NS @50CC/HR. HEAD OF BED ELEVATED. SIDE RAILS UP. CALL LIGHT IS PLACED WITHIN REACH. WILL CONTINUE TO MONITOR PT CLOSELY.
[2017-12-04 20:00] VITALS: BP 131/77
[2017-12-05] VITALS: BP 130/81
[2017-12-05 04:00] VITALS: BP 128/83
[2017-12-05] MEDS: INSULIN REGULAR, HUMAN 100 UNIT/ML 3 ML VIAL SQ PRN ×2 (05:06→12:03)
[2017-12-05] MEDS: BLOOD SUGAR DIAGNOSTIC 1 EACH STRIP IN SCH ×2 (05:07→12:00)
[2017-12-05] MEDS: CEFEPIME 1 GM in IV D5W 50 ML IV SCH (05:08)
[2017-12-05] MEDS: GLUCERNA 1.2 1,000 ML BOTTLE GT PRN (05:12)
--- NOTE | 2017-12-05 06:33 | NUR ---
LABORER PLUMBING NOTES NO ACUTE CHANGES NOTED DURING THE SHIFT. MCCOY CATHETER DRAINING WELL AND INTACT. NO RESIDUAL NOTED AT THIS TIME. DUE MEDS GIVEN. PROVIDED COMFORT AND SAFETY. WILL ENDORSE TO THE AM NURSE FOR CHELLE.
[2017-12-05 06:51] LABS: BASOPHILS # (AUTO) 0.1 /CMM (0.0-0.2); BASOPHILS % (AUTO) 0.9 % (0.0-2.0); EOSINOPHILS % (AUTO) 5.6 % (0.0-6.0); HEMATOCRIT 34 % (39-51); HEMOGLOBIN 10.9 g/dL (13.5-17.5); LYMPHOCYTES % (AUTO) 25.4 % (20.0-44.0); MEAN CORPUSCULAR HGB CONC 32 g/dl (31.0-36.0); MEAN CORPUSCULAR VOLUME 91 fL (80-96); MONOCYTES # (AUTO) 0.5 /CMM (0.1-1.30); MONOCYTES % (AUTO) 6.6 % (2.0-12.0); NEUTROPHILS # (AUTO) 4.8 /CMM (1.8-8.9); NEUTROPHILS % (AUTO) 61.5 % (43.0-81.0); PLATELET COUNT (AUTO) 338 /CMM (150-450); RDW COEFFICIENT OF VARIATION 18.3 (11.5-15.0); RED BLOOD CELL COUNT(AUTO) 3.72 MIL/uL (4.5-6.0); WHITE BLOOD COUNT (AUTO) 7.9 K/uL (4.3-11.0)
[2017-12-05 07:02] LABS: ALBUMIN 2.2 g/dL (3.4-5.0); BILIRUBIN,TOTAL 0.1 mg/dL (0.2-1.0); CALCIUM, SERUM 8.7 mg/dL (8.5-10.1); CREATININE 1.6 mg/dL (0.6-1.3); MAGNESIUM 2.1 mg/dL (1.8-2.4); PHOSPHORUS 3.3 mg/dL (2.5-4.9); POTASSIUM 4.9 mmol/L (3.5-5.1)
--- NOTE | 2017-12-05 07:30 | NUR ---
FAILURE ANALYSIS ENGINEER NOTES: RECEIVED PT ON BED, OBTUNDED. NO ACUTE DISTRESS NOTED. BREATHING EVEN AND UNLABORED WITH NORMAL RESPIRATIONS. [facility], SETTING ORDERED. NO FACIAL GRIMACING OR ANY SIGNS OF PAIN NOTED. ON TELE MONITOR SB HR 55. IV ON RIGHT WRIST G22 INTACT AND PATENT, WITH IV 1/2 NS @ 50 ML/HR, INFUSING WELL. ON GTUBE FEEDING 75ML/HR, TOLERATING WELL. MCCOY CATH INTACT AND PATENT. TURNED AND REPOSITIONED Q2HRS. KEPT CLEAN, DRY AND COMFORTABLE. SAFETY AND FALL PRECAUTIONS OBSERVED AND MAINTAINED. WILL CONTINUE TO MONITOR.
--- NOTE | 2017-12-05 07:52 | NUR ---
RT PT RECEIVED WITH A PORTEX 9 TRACH ON THE VENT WITH NOTED SETTINGS. PT IS AWAKE BUT DOES NOT FOLLOW COMMANDS. VENT ALARMS ARE SET AND AUDIBLE WITH BVM BY BEDSIDE. COLD ROLLING MACHINE SETTER CUFF PRESSURE NOTED. VENT IS PLUGGED INTO RED OUTLET. PT SX'D SMALL WHITE THICK SECRETIONS. NO RESPIRATORY DISTRESS NOTED AT THIS TIME, WILL CONTINUE TO MONITOR. Addendum: 12/05/17 at 0820 by GERARDO BOURGEOIS RT Amended: Links added.
[2017-12-05 08:00] VITALS: BP 128/79
[2017-12-05] MEDS: PANTOPRAZOLE 40 MG VIAL IV SCH (09:19)
--- NOTE | 2017-12-05 09:30 | NUR ---
PRIMARY CARE PROVIDER NOTES DUE MEDS GIVEN.
[2017-12-05 12:00] VITALS: BP 120/88
--- NOTE | 2017-12-05 12:00 | NUR ---
DOPE WEIGH OPERATOR NOTES ACCUCHECK DONE. BS 228 MG/DL. 6 UNITS HUM R GIVEN PER SS.
[2017-12-05 12:27] VITALS: BP 120/88
--- NOTE | 2017-12-05 13:45 | NUR ---
MACARONI PRESS OPERATOR NOTES: REPORT GIVEN TO TENISHA MANCILLA AT [facility].
--- NOTE | 2017-12-05 14:57 | NUR ---
DIGITAL PROJECT MANAGER NOTES: PT WAS DISCHARGED TO [facility] ACCOMPANIED BY 3 EMT. NO SIGNS/SYMPTOMS OF DISTRESS NOTED. NO SOB. Addendum: 12/05/17 at 1541 by JAIRO JOHN RN RUST PROOFER NOTES PT PICKED UP BY 3 AMBULANCE CREW TO TRANSPORT TO [facility]. PATIENT DISCHARGED PER MD IN STABLE CONDITION. PROVIDED DC INSTRUCTIONS, MED RECON/PRESCRIPTION, HEALTH TEACHINGS. PATIENT TO FOLLOW UP WITH PCP IN 1-2 WEEKS OR PER FACILITY PROTOCOL. PATIENT WITH PORTEX 9 TRACH, INTACT AND PATENT. IV ACCESS REMOVED, CATH TIP COMPLETE, NO BLEEDING, PRESSURE AND DRESSING APPLIED. MCCOY CATH IN PLACE, DRAINING CLEAR YELLOW URINE WITH 750 ML OUTPUT. NO BELONGINGS. PM CARE, PHOTOS OF SKIN ISSUES TAKEN AND PLACED IN CHART. REPORT GIVEN TO [facility] STAFF EARLIER. Addendum: 12/05/17 at 1542 by JAIRO JOHN RN ADDENDUM GT SITE CLEAN AND INTACT AND CLAMPED.
[2018-03-06] MEDS ORDERED: INSU100I30 SQ (12:05)
[2018-03-06] MEDS ORDERED: Prosource GT (12:05)
[2018-03-06] MEDS ORDERED: CEFT1VIA15 IV (12:05)
[2018-03-06] MEDS ORDERED: Hydrocortisone Sod Succinate IV (12:05)
[2018-03-06] MEDS ORDERED: SUCR1ORA6 GT (12:05)
[2018-03-06] MEDS ORDERED: PANT40VI IV (12:05)
== END 2017-12-05 14:56 | DRG 870 ==
LOC: ER 20:03 → TELE-TD 22:16 → TELE1 11-29 16:53
PROVIDERS: ADMIT Nurse Practitioner Acute Care; ATTEND Nurse Practitioner Acute Care
PROC: 5A1955Z Respiratory Ventilation, Greater than 96 Consecutive Hours (ICD-10-PCS; principal; 2017-11-24)
DX: A41.9 Sepsis, unspecified organism (principal); G93.41 Metabolic encephalopathy; J15.6 Pneumonia due to other Gram-negative bacteria; R53.2 Functional quadriplegia; J96.21 Acute and chronic respiratory failure with hypoxia; J15.9 Unspecified bacterial pneumonia; E43 Unspecified severe protein-calorie malnutrition; N17.0 Acute kidney failure with tubular necrosis; E87.1 Hypo-osmolality and hyponatremia; N39.0 Urinary tract infection, site not specified; G93.1 Anoxic brain damage, not elsewhere classified; E87.2 Acidosis; Z99.11 Dependence on respirator [ventilator] status; D68.59 Other primary thrombophilia; K56.7 Ileus, unspecified; L97.419 Non-pressure chronic ulcer of right heel and midfoot with unspecified severity; J98.11 Atelectasis; D62 Acute posthemorrhagic anemia; K92.2 Gastrointestinal hemorrhage, unspecified; K21.9 Gastro-esophageal reflux disease without esophagitis; R65.20 Severe sepsis without septic shock; E83.39 Other disorders of phosphorus metabolism; Z93.1 Gastrostomy status; Z87.820 Personal history of traumatic brain injury; Z93.0 Tracheostomy status; R13.10 Dysphagia, unspecified; E11.9 Type 2 diabetes mellitus without complications; Z79.4 Long term (current) use of insulin; Z79.899 Other long term (current) drug therapy; E86.1 Hypovolemia; E87.6 Hypokalemia; G40.909 Epilepsy, unspecified, not intractable, without status epilepticus; E11.65 Type 2 diabetes mellitus with hyperglycemia; E87.5 Hyperkalemia; L89.610 Pressure ulcer of right heel, unstageable; J01.00 Acute maxillary sinusitis, unspecified; J32.0 Chronic maxillary sinusitis; E11.621 Type 2 diabetes mellitus with foot ulcer; M62.479 Contracture of muscle, unspecified ankle and foot; K76.9 Liver disease, unspecified; D72.1 Eosinophilia; B96.4 Proteus (mirabilis) (morganii) as the cause of diseases classified elsewhere; F09 Unspecified mental disorder due to known physiological condition
CPT/HCPCS: 31720; 36415; 36600; 70450-TC; 71045-TC; 71270-TC; 74018; 74178; 80048-TC; 80053-TC; 80061-TC; 80076-TC; 80202-TC; 80305; 81000-TC; 82105; 82247-TC; 82248-TC; 82272-TC; 82378; 82550-TC; 82570-TC; 82728-TC; 82746; 82784; 82803-TC; 82962-TC; 83540-TC; 83605-TC; 83735-TC; 84100-TC; 84155; 84155-TC; 84165; 84300-TC; 85025-TC; 85027-TC; 86301; 86334; 87040-TC; 87070-TC; 87081-TC; 87086-TC; 87186-TC; 94002-TC; 94003-TC; 94760-TC; 99082-TC; A4216; A4606; A4623; A6403; C9113; J0692; J1650; J1815; J1956; J2405; J2543; J3370; J3480; J3490; J7030; J7040; J7042; J7050; J7060; Q9967; Z7610

== ENCOUNTER 2018-02-05 09:12 | Outpatient (CLI) | payer MEDICARE, MEDICAID ==
[~2018-02-05 09:12] MED LIST changes: -*INS REG3 SQ; +ACET-868 PO; -ACET325T53 PO; +ALBU2.5V13 IH; +AMIN30LI2 GT; +ASCO500T9 GT; +ATOR20TA GT; +BISA10SU8 RC; -CEFT1VIA15 IV; -CITA10TA17 PO; +CRAN3875 GT; +DEXL30CA3 GT; +DOCU100T2 GT; +INSU100I30 SQ; -INSU100V28 SQ; +INSU100V30 SQ; +IPRA0.2S49 IH; -Insulin Glargine,Hum SQ; +LEVE100S GT; +MAGN400O6 GT; +METO25TA6 GT; +NUT.237L30 GT; -ONDA4VIA23 IVP; -PANT40VI IV; -QUET25TA PO; +SACC250C GT; +TOPI100T GT; -[UNRECOGNIZED DRUG - OTHER] GT
[2018-02-05] MEDS ORDERED: IV NS 0.9% 250 ML IV ONE (11:27)
[2018-02-05] MEDS ORDERED: IOHEXOL-300 100 ML VIAL IV ONE (11:27)
[2018-02-05] MEDS ORDERED: CT SWABBABLE VALVE TRANS SET 1 EA INFUS.SET MC ONE (11:27)
== END 2018-02-05 23:59 | disposition home or self-care (01) ==
LOC: CT 09:12
DX: J43.9 Emphysema, unspecified (principal); R18.8 Other ascites; K76.9 Liver disease, unspecified; E11.9 Type 2 diabetes mellitus without complications; I10 Essential (primary) hypertension; I25.10 Atherosclerotic heart disease of native coronary artery without angina pectoris; R56.9 Unspecified convulsions
CPT/HCPCS: 74160; J7050; Q9967

== ENCOUNTER 2018-02-22 19:47 | Inpatient (IN) | payer MEDICARE, MEDICAID ==
[~2018-02-22] VITALS: Ht 180.3 cm; Wt 106.1 kg
[2018-02-22 20:01] VITALS: BP 94/68
[2018-02-22] MEDS ORDERED: PANTOPRAZOLE 40 MG VIAL ONE (20:12)
--- NOTE | 2018-02-22 20:20 | NUR ---
SHERIDAN FROM [facility] FOR "COFFEE GROUND RESIDUAL IN G-TUBE". PT OBTUNDED, EYE OPEN, CONNECTED TO VENT WITH PRESCRIBED SETTINGS: AC 12 VT 500 FI02 80% PEEP 5. NO SOB. NO NVD AT THIS TIME. PT NOTED WITH GTUBE INTACT AND PATENT. NO RESIDUALS NOTED. NO S/S INFECTION AT THIS TIME. PT NOTED WITH UPPER AND LOWER BILATERAL EDEMA. PT GOWNED AND PLACED ON MONITOR WAITING FOR MD MANCERA.
--- NOTE | 2018-02-22 20:22 | NUR ---
DR. BONNER AT BEDSIDE FOR EVAL.
[2018-02-22] MEDS ORDERED: PANTOPRAZOLE 40 MG VIAL IV ONE (20:30)
[2018-02-22] MEDS ORDERED: IV NS 0.9% 500 ML BAG IV ONE (20:30)
--- NOTE | 2018-02-22 20:30 | NUR ---
Valery otto in ED - 02/22/18 at [address] BONNER CURRENT BP 86/60, ORDERS TO GIVE PT 1 L NS BOLUS NOW.
--- NOTE | 2018-02-22 20:40 | NUR ---
RADIOLOGY AT BEDSIDE FOR CXR
[2018-02-22 20:59] LABS: INR 1.22 (0.85-1.15)
[2018-02-22 21:01] LABS: ALANINE AMINOTRANSFERASE 127 U/L (12-78); ALBUMIN 2.4 g/dL (3.4-5.0); ALKALINE PHOSPHATASE 118 U/L (46-116); ASPARTATE AMINOTRANSFERASE 93 U/L (15-37); BILIRUBIN,DIRECT 0.1 mg/dL (0.0-0.2); BILIRUBIN,TOTAL 0.3 mg/dL (0.2-1.0); CALCIUM, SERUM 10.2 mg/dL (8.5-10.1); CARBON DIOXIDE 27 mmol/L (21-32); CHLORIDE 105 mmol/L (98-107); GLUCOSE 146 mg/dL (74-106); HEMATOCRIT 34 % (39-51); HEMOGLOBIN 11.3 g/dL (13.5-17.5); MEAN CORPUSCULAR HGB CONC 34 g/dl (31.0-36.0); MEAN CORPUSCULAR VOLUME 92 fL (80-96); POTASSIUM 4.2 mmol/L (3.5-5.1); RDW COEFFICIENT OF VARIATION 20.5 (11.5-15.0); RED BLOOD CELL COUNT(AUTO) 3.66 MIL/uL (4.5-6.0); SODIUM SERUM 143 mmol/L (136-145); TOTAL PROTEIN, SERUM 7.8 g/dL (6.4-8.2); UREA NITROGEN, BLOOD 24 mg/dL (7-18); WHITE BLOOD COUNT (AUTO) 11.2 K/uL (4.3-11.0)
--- NOTE | 2018-02-22 21:02 | NUR ---
PER DR. HA PICHARDO TO START IV ON FOOT. IV STARTED ON RIGHT FOOT 20G GOOD BLOOD RETURN.
[2018-02-22 21:04] LABS: TROPONIN I < 0.017 ng/mL (0.00-0.056)
[2018-02-22 21:07] LABS: PLATELET COUNT (AUTO) 31 /CMM (150-450)
--- NOTE | 2018-02-22 21:30 | NUR ---
INFORMED DR. BONNER CURRENT BP 86/60, ORDERS TO GIVE PT 1 L NS BOLUS NOW.
--- NOTE | 2018-02-22 21:35 | NUR ---
INFORM DR. BONNER CURRENT BP, 105/66 PER MD VERBAL ORDERS TO HOLD FLUIDS AT THIS TIME.
--- NOTE | 2018-02-22 21:40 | NUR ---
MCCOY CATH INSERTED 18F. URINE COLLECTED, LAB CALLED FOR GRISTMILLER.
[2018-02-22 21:49] VITALS: BP 91/67
--- NOTE | 2018-02-22 21:50 | NUR ---
[facility] STATES "PLATELETS NOT AVAILABLE FOR 2 HOURS; TO BE ORDERED FROM [facility]"
[2018-02-22] MEDS ORDERED: IV NS 0.9% 1,000 ML BAG IV ONE (22:00)
--- NOTE | 2018-02-22 22:14 | NUR ---
SPOKE TO DR. BONNER REGARDING COLLECTING BLOOD CULTURES. PER TO HOLD ON DRAWING BLOOD CULTURES. OK TO GIVE IV ATB.
--- NOTE | 2018-02-22 22:14 | NUR ---
Valery otto in ED - 02/22/18 at 2214 by SABRINA SPOKE TO DR. BONNER REGARDING COLLECTING BLOOD CULTURES. PER TO HOLD ON DRAWING BLOOD CULTURES.
--- NOTE | 2018-02-22 22:17 | NUR ---
MD AWARE OF BP 89/64. PER MD, NOT TO ADMINISTER ANY IV FLUIDS AT THIS TIME
[2018-02-22] MEDS ORDERED: PIPERACILLIN /TAZOBACTAM 3.375 G VIAL IV ONE (22:19)
[2018-02-22 22:28] LABS: APPEARANCE,URINE CLEAR (CLEAR); BILIRUBIN,URINE NEGATIVE (NEGATIVE); BLOOD, URINE NEGATIVE Ery/uL (NEGATIVE); COLOR,URINE YELLOW (YELLOW); KETONES,URINE NEGATIVE (NEGATIVE); LEUKOCYTE ESTERASE ,URINE NEGATIVE (NEGATIVE); NITRITE, URINE NEGATIVE (NEGATIVE); PROTEIN,URINE NEGATIVE (NEGATIVE); UGLUCOSE NEGATIVE (NEGATIVE); UROBILINOGEN,URINE 0.2 EU/dL (0.2)
[2018-02-22] MEDS ORDERED: PIPERACILLIN /TAZOBACTAM 3.375 G in IV D5W 50 ML IV ONE (22:30)
[2018-02-22] MEDS ORDERED: MORPHINE SULFATE INJ 2 MG/ML DISP.SYRIN IV PRN (23:00)
[2018-02-22] MEDS ORDERED: ONDANSETRON HCL/PF 4 MG/2 ML VIAL IVP PRN (23:00)
--- NOTE | 2018-02-22 23:06 | NUR ---
BED 103
[2018-02-22 23:09] LABS: BAND % (MANUAL) 51 % (0.0-5.0); LYMPHOCYTES % (MANUAL) 8 % (16-48); METAMYELOCYTES % 1 % (0-0); MONOCYTES % (MANUAL) 1 % (0-11.0); NEUTROPHILS % (MANUAL) 36 (42-76); REACTIVE LYMPHOCYTES 3 % (0-0)
--- NOTE | 2018-02-22 23:15 | NUR ---
GAVE REPORT TO NURSE HERNÁNDEZ FOR CHELLE. BED 103
--- NOTE | 2018-02-22 23:22 | NUR ---
ATTEMPTED TO CONTACT FAMILY MEMBER REGARDING BLOOD TRANSFUSION CONSENT FORM, UNABLE TO LEAVE MESSAGE.
[2018-02-22] MEDS ORDERED: GLUCERNA 1.2 1,000 ML BOTTLE GT SCH (23:30)
[2018-02-22] MEDS ORDERED: ACETAMINOPHEN 325 MG TABLET PO PRN (23:30)
[2018-02-22] MEDS ORDERED: MAGNESIUM HYDROXIDE 30 ML UDC GT PRN (23:30)
[2018-02-22] MEDS ORDERED: BISACODYL SUPP (10 MG) 10 MG/SUPP.RECT SUPP.RECT RC PRN (23:30)
[2018-02-22] MEDS ORDERED: DEXTROSE 50%-WATER 50 ML DISP.SYRIN IV PRN (23:30)
[2018-02-22 23:37] VITALS: BP 97/48
[2018-02-22 23:53] LABS: IRON, SERUM 25 ug/dl (50-175); TOTAL IRON BINDING CAPACITY 297 ug/dl (250-450)
--- NOTE | 2018-02-22 23:53 | NUR ---
DR. BURKS AWARE OF BP 80/58. PER MD ORDER, IV START 1000ML NS RIGHT FOOT 20G.
[2018-02-23] VITALS (58 sets, daily range): BP systolic 72–134; BP diastolic 50–85
[2018-02-23] MEDS ORDERED: IV NS 0.9% 1,000 ML BAG IV ONE
[2018-02-23] MEDS ORDERED: IPRATROPIUM NEB FS 0.5 MG/2.5 ML AMPUL.NEB IH SCH
[2018-02-23] MEDS ORDERED: ALBUTEROL FS 2.5 MG/0.5 ML VIAL.NEB IH SCH
--- NOTE | 2018-02-23 00:16 | NUR ---
LAB AT BEDSIDE FOR BLOOD DRAW
[2018-02-23 00:48] LABS: HEMATOCRIT 34 % (39-51); HEMOGLOBIN 10.8 g/dL (13.5-17.5); MEAN CORPUSCULAR HGB CONC 31 g/dl (31.0-36.0); MEAN CORPUSCULAR VOLUME 94 fL (80-96); RDW COEFFICIENT OF VARIATION 21.6 (11.5-15.0); RED BLOOD CELL COUNT(AUTO) 3.64 MIL/uL (4.5-6.0); WHITE BLOOD COUNT (AUTO) 7.3 K/uL (4.3-11.0)
[2018-02-23 01:03] LABS: PLATELET COUNT (AUTO) 39 /CMM (150-450)
--- NOTE | 2018-02-23 01:14 | NUR ---
BEGAN PLT TRANSFUSION
--- NOTE | 2018-02-23 01:17 | NUR ---
CALLED RT FOR TRANSFER
--- NOTE | 2018-02-23 01:20 | NUR ---
PT PLACED ON BEAR HUGGER FOR TEMP 88.4 RECTAL TEMP PER MD
--- NOTE | 2018-02-23 01:31 | NUR ---
PT ASSIGNED TO ICU 258
[2018-02-23 01:32] LABS: BAND % (MANUAL) 61 % (0.0-5.0); BASOPHILS % (MANUAL) 1 % (0.0-2.0); EOSINOPHILS % (MANUAL) 1 % (0-4); LYMPHOCYTES % (MANUAL) 5 % (16-48); MONOCYTES % (MANUAL) 2 % (0-11.0); NEUTROPHILS % (MANUAL) 30 (42-76)
--- NOTE | 2018-02-23 01:54 | NUR ---
GAVE REPORT TO SELIN FOR CHELLE
--- NOTE | 2018-02-23 02:21 | NUR ---
TRANSFERRED PT TO ICU PER ACLS PROTOCOLS
[2018-02-23] MEDS ORDERED: IV NS 0.9% 1,000 ML IV STA ×2 (02:54→04:15)
[2018-02-23] MEDS ORDERED: NOREPINEPHRINE 8 MG in IV D5W 500 ML IV PRN (03:00)
[2018-02-23] MEDS ORDERED: VANCOMYCIN 1 GM in IV D5W 250ml IV ONE (03:00)
[2018-02-23] MEDS: BLOOD SUGAR DIAGNOSTIC 1 EACH STRIP IN SCH ×4 (03:07→17:03)
[2018-02-23] MEDS ORDERED: VANCOMYCIN 1 GM VIAL ONE (03:08)
--- NOTE | 2018-02-23 03:54 | NUR ---
PET SUPPLIES SALESPERSON. ADMISSION.PT BEING ADMITTED IN THE ICU ROOM 258 SEPSIS ,PNA, .PT IS OBTUNDED. TRACH TO VENT CONNECTED. SETTINGS PORTEX#9,AC 12,TV 500,FIO2 80%,PEEP 5, SAT 98%. VOCATIONAL REHAB CONSULTANT SHOWING NSR. IV RT FOOT 20G. GENERALIZED EDEMA 4 + PT IS VERY UNSTABLE. RECEIVED WITH BP 75/40,TEMPERATURE 89. ARMANDO HUGGER INITIATED.
[2018-02-23] MEDS ORDERED: VANCOMYCIN 500 MG in IV D5W 100ml IV ONE (04:00)
--- NOTE | 2018-02-23 04:05 | NUR ---
NUCLEAR LICENSING ENGINEER. BP 70/40, PAGED JARETT FOX ORDERED 2L NS BOLUS. THEN IF BP LOW START LEVOPHED. WILL CONTINUE TO MONITOR VITALS.
[2018-02-23] MEDS ORDERED: VANCOMYCIN 500 MG VIAL ONE (04:12)
[2018-02-23] MEDS: IV NS 0.9% 1,000 ML IV SCH ×3 (04:49→16:46)
[2018-02-23 04:53] LABS: EOSINOPHILS % (AUTO) 0.3 % (0.0-6.0); HEMATOCRIT 26 % (39-51); HEMOGLOBIN 8.6 g/dL (13.5-17.5); LYMPHOCYTES # (AUTO) 0.4 /CMM (0.8-4.8); LYMPHOCYTES % (AUTO) 7.6 % (20.0-44.0); MEAN CORPUSCULAR HGB CONC 33 g/dl (31.0-36.0); MEAN CORPUSCULAR VOLUME 93 fL (80-96); MONOCYTES # (AUTO) 0.1 /CMM (0.1-1.30); MONOCYTES % (AUTO) 1.9 % (2.0-12.0); NEUTROPHILS # (AUTO) 5.1 /CMM (1.8-8.9); PLATELET COUNT (AUTO) 85 /CMM (150-450); RDW COEFFICIENT OF VARIATION 21.6 (11.5-15.0); RED BLOOD CELL COUNT(AUTO) 2.81 MIL/uL (4.5-6.0); WHITE BLOOD COUNT (AUTO) 5.6 K/uL (4.3-11.0)
[2018-02-23 05:03] LABS: NEUTROPHILS % (AUTO) 90.2 % (43.0-81.0)
[2018-02-23 05:28] LABS: CALCIUM, SERUM 8.7 mg/dL (8.5-10.1); MAGNESIUM 2.9 mg/dL (1.8-2.4); PHOSPHORUS 6.3 mg/dL (2.5-4.9); POTASSIUM 3.6 mmol/L (3.5-5.1)
[2018-02-23 05:31] LABS: THYROID STIMULATING HORMONE 3.723 uIU/mL (0.358-3.74)
[2018-02-23] MEDS ORDERED: PIPERACILLIN /TAZOBACTAM 3.375 G VIAL IV ONE (05:39)
[2018-02-23] MEDS: PIPERACILLIN /TAZOBACTAM 3.375 G in IV D5W 50 ML IV SCH ×4 (05:44→23:45)
--- NOTE | 2018-02-23 06:00 | NUR ---
CLIENT HR MANAGER. AM CARE, ORAL CARE, BED BATH GIVEN. LINEN CHANGED. REMAINING SAME VENT SETTING ON. SAT 95%. NO ACUTE DISTRESS NOTED. TEMPERATURE 90. ARMANDO HUGGER ON. GT INTERMITTENT SUCTION. FC PATENT. IV RT FOOT 20G. IVF NS 150ML/H. HOB ELEVATED. TURN AND REPOSITION DONE. WILL CONTINUE TO MONITOR VITALS.
[2018-02-23 06:06] LABS: BAND % (MANUAL) 60 % (0.0-5.0); EOSINOPHILS % (MANUAL) 1 % (0-4); LYMPHOCYTES % (MANUAL) 3 % (16-48); MONOCYTES % (MANUAL) 1 % (0-11.0); NEUTROPHILS % (MANUAL) 35 (42-76)
[2018-02-23] MEDS ORDERED: NOREPINEPHRINE 4 MG/4 ML AMPUL IV ONE (06:39)
[2018-02-23] MEDS: NOREPINEPHRINE 8 MG in IV D5W 500 ML IV PRN ×3 (06:44→17:01)
--- NOTE | 2018-02-23 06:56 | NUR ---
RV REPAIR TECHNICIAN. BLOOD PRESSURE 84/50. LEVOPHED STARTED PER ORDERED.HEMATURIA PRESENT IN THE URINE.
[2018-02-23] MEDS: ALBUTEROL FS 2.5 MG/0.5 ML VIAL.NEB IH SCH ×3 (07:28→19:46)
[2018-02-23] MEDS: IPRATROPIUM NEB FS 0.5 MG/2.5 ML AMPUL.NEB IH SCH ×3 (07:28→19:46)
--- NOTE | 2018-02-23 07:30 | NUR ---
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 VENT SETTINGS AC 12,TV 500,FIO2 90%,PEEP 5, SAT 92%. DIESEL TRUCK DRIVER SHOWING ST 105. IV RT FOOT 20G RUNNING NS AT 150 MLS/HR GENERALIZED EDEMA 4 + PT IS VERY UNSTABLE. RECEIVED WITH BP 93/54,PT ON LEVOPHED AT 2 MCG'S TEMPERATURE 93.9 ON ARMANDO HUGGER PT HAS MCCOY DRAINING HEMATURIA COLORED CONTENTS. BED IN LOW POSITION LOCKED CALL CASTILLO NEXT TO PT WILL CONTINUE TO MONITOR
[2018-02-23 07:41] LABS: ALBUMIN 1.8 g/dL (3.4-5.0); BILIRUBIN,DIRECT 0.1 mg/dL (0.0-0.2); BILIRUBIN,TOTAL 0.4 mg/dL (0.2-1.0); TOTAL PROTEIN, SERUM 5.9 g/dL (6.4-8.2)
[2018-02-23 07:43] LABS: ABG BASE EXCESS -1.7 mmol/L; ABG OXYGEN SATURATION 87.3 % (92.0-98.5); ABG PCO2 42.5 mmHg (35.0-45.0); ABG PH 7.363 (7.350-7.450); ABG PO2 59.3 mmHg (75.0-100.0); AaDO2 466.5 mmHg; COHb 0.3 % (0.5-1.5); MetHb 0.9 % (0.0-1.5); O2Hb 86.3 % (94.0-97.0); SITE, ABG Right Radial
[2018-02-23 07:44] LABS: HEMATOCRIT 28 % (39-51); HEMOGLOBIN 9.1 g/dL (13.5-17.5); MEAN CORPUSCULAR HGB CONC 33 g/dl (31.0-36.0); MEAN CORPUSCULAR VOLUME 93 fL (80-96); PLATELET COUNT (AUTO) 88 /CMM (150-450); RDW COEFFICIENT OF VARIATION 20.7 (11.5-15.0); RED BLOOD CELL COUNT(AUTO) 3.02 MIL/uL (4.5-6.0); WHITE BLOOD COUNT (AUTO) 6.9 K/uL (4.3-11.0)
[2018-02-23] MEDS ORDERED: PROSTAT (PYXIS) 30 ML UDC GT SCH (09:00)
[2018-02-23] MEDS ORDERED: Medication Not On Formulary EA (Cran/Vitc/Mannose/Inulin/Brom (Uti-Stat Liquid) 30 ML) GT SCH (09:00)
[2018-02-23] MEDS ORDERED: PANTOPRAZOLE 40 MG VIAL IV SCH (09:00)
[2018-02-23] MEDS ORDERED: Medication Not On Formulary EA (Dexlansoprazole (Dexilant) 30 MG) GT SCH (09:00)
[2018-02-23] MEDS ORDERED: FUROSEMIDE 40 MG/4 ML VIAL IV SCH (09:00)
[2018-02-23] MEDS: HYDROCORTISONE SOD SUCCINATE 100 MG/2 ML VIAL IV SCH ×3 (09:09→16:46)
[2018-02-23] MEDS: DOCUSATE SODIUM LIQ 100 MG/10 ML UDC GT SCH (09:09)
[2018-02-23] MEDS: ACIDOPHILUS/BULGARICUS 1 EACH TAB.CHEW GT SCH ×3 (09:10→16:38)
[2018-02-23] MEDS: ATORVASTATIN 10 MG TABLET GT SCH (09:10)
[2018-02-23] MEDS: LEVETIRACETAM SOL (5 ML) 100 MG/ML UDC GT SCH ×2 (09:10→16:38)
[2018-02-23] MEDS: TOPIRAMATE 100 MG TABLET GT SCH ×2 (09:10→09:11)
[2018-02-23] MEDS: PANTOPRAZOLE 40 MG VIAL IV SCH ×2 (09:11→16:47)
[2018-02-23] MEDS ORDERED: FEE PK DOSING 1 MIN EA MC ONE (09:15)
[2018-02-23] MEDS: ASCORBIC ACID 500 MG TABLET GT SCH (09:18)
[2018-02-23] MEDS: PROSOURCE / PROSTAT (PYXIS) 30 ML UDC GT SCH (09:58)
[2018-02-23 10:01] LABS: BAND % (MANUAL) 65 % (0.0-5.0); LYMPHOCYTES % (MANUAL) 5 % (16-48); MONOCYTES % (MANUAL) 1 % (0-11.0); NEUTROPHILS % (MANUAL) 29 (42-76)
[2018-02-23] MEDS: FLUDROCORTISONE 0.1 MG TABLET GT SCH ×2 (12:39→16:39)
[2018-02-23] MEDS: VANCOMYCIN 1 GM in IV D5W 250 ML IV SCH ×2 (12:42→20:55)
[2018-02-23 12:44] LABS: BASOPHILS % (AUTO) 0.1 % (0.0-2.0); HEMATOCRIT 30 % (39-51); HEMOGLOBIN 9.3 g/dL (13.5-17.5); LYMPHOCYTES # (AUTO) 0.6 /CMM (0.8-4.8); LYMPHOCYTES % (AUTO) 5.6 % (20.0-44.0); MEAN CORPUSCULAR HGB CONC 32 g/dl (31.0-36.0); MEAN CORPUSCULAR VOLUME 94 fL (80-96); MONOCYTES # (AUTO) 0.2 /CMM (0.1-1.30); MONOCYTES % (AUTO) 1.7 % (2.0-12.0); NEUTROPHILS # (AUTO) 10.2 /CMM (1.8-8.9); NEUTROPHILS % (AUTO) 91.6 % (43.0-81.0); PLATELET COUNT (AUTO) 94 /CMM (150-450); RDW COEFFICIENT OF VARIATION 21.1 (11.5-15.0); RED BLOOD CELL COUNT(AUTO) 3.16 MIL/uL (4.5-6.0); WHITE BLOOD COUNT (AUTO) 11.1 K/uL (4.3-11.0)
[2018-02-23] MEDS: INSULIN REGULAR, HUMAN 100 UNIT/ML 3 ML VIAL SQ PRN ×2 (13:02→17:06)
[2018-02-23 13:30] LABS: BAND % (MANUAL) 59 % (0.0-5.0); NEUTROPHILS % (MANUAL) 41 (42-76)
[2018-02-23] MEDS: SOD FERRIC GLUC 125 MG in IV NS 0.9% 100 ML IV SCH (14:05)
[2018-02-23 14:29] LABS: INR 1.27 (0.87-1.13)
[2018-02-23 14:38] LABS: D-DIMER 1.18 mg/L(FEU (0.17-0.50)
--- NOTE | 2018-02-23 15:00 | NUR ---
COLLEGE BASKETBALL COACH NOTES RECEIVED PATIENT OBTUNDED , NOT IN ACUTE DISTRESS , TOLERATING CURRENT VENT SETTINGS OF AC 12 , TV 500 FIO2 90% AND PEEP OF 5 WITH SPO2 OF 100% , PORTEX # [address] , ST 105 ON BEDSIDE MONITOR , GT PATENT AND INTACT ATTACHED TO LOW INTERMITTENT SUCTION , FC DRAINING VIA GRAVITY WITH LAURA COLORED URINE , IV OF L FOOT # 22 PATENT AND INACT SL , R FOOT # 20 WITH NS @ 150ML/HR AND LEVOPHED @6MCG/MIN INFUSING WELL , ARMANDO ABRAHAM IN PLACE , WILL CONTINUE TO MONITOR
--- NOTE | 2018-02-23 17:30 | NUR ---
DEMONSTRATOR ELECTRIC GAS APPLIANCES NOTES GASTRIC TUBE DISLODGED WHILE CLEANING , NO ACTIVE BLEEDING NOTED , MCCOY CATHETER INSERTED , BALLOON INFLATED , PLACEMENT CHECKED , PLACED ON LOW INTERMITTENT SUCTION , DRAINING WITH CLEAR BROWN OUTPUT WITH NO SIGNS OF BLEEDING .
--- NOTE | 2018-02-23 18:07 | NUR ---
HAND DRY CLEANER NOTES NOTIFIED DR FREED THAT PT GT GOT DISLODGE , NO BLEEDING NOTED , INSERTED MCCOY CATHETER , PLACEMENT CHECKED , ATTACHED TO LOW INTERMITTENT SUCTION , MD AWARE . PER MD HE WILL PUT NEW GASTRIC TUBE IN AM , CALLED [facility] FOR F 18 AND 20 GASTRIC TUBE ,
--- NOTE | 2018-02-23 18:27 | NUR ---
CUSTOMER ORDER CLERK NOTES SPUTUM SPECIMEN COLLECTED , LABELED AND SENT TO LAB
--- NOTE | 2018-02-23 18:57 | NUR ---
AERONAUTICAL ENGINEERING TEACHER NOTES PICC LINE OK TO USE PER PICC LINE RN ,
--- NOTE | 2018-02-23 20:00 | NUR ---
RN INITIAL NOTES RECEIVED PATIENT OBTUNDED , NOT IN ACUTE DISTRESS , TOLERATING CURRENT VENT SETTINGS OF AC 12 , TV 500 FIO2 90% AND PEEP OF 5 WITH SPO2 OF 100% , PORTEX # [address] , ST 105 ON BEDSIDE MONITOR , GT PATENT AND INTACT ATTACHED TO LOW INTERMITTENT SUCTION , FC DRAINING VIA GRAVITY WITH C/Y COLORED URINE , IV OF L FOOT # 22 PATENT AND INACT SL DC, W/SAMY MIDLINE , WITH NS @ 150ML/HR AND LEVOPHED @8MCG/MIN INFUSING WELL , ARMANDO ABRAHAM IN PLACE T 98.7, WILL CONTINUE TO MONITOR
[2018-02-23 21:11] LABS: EOSINOPHILS % (AUTO) 0.1 % (0.0-6.0); HEMATOCRIT 27 % (39-51); HEMOGLOBIN 8.5 g/dL (13.5-17.5); LYMPHOCYTES # (AUTO) 0.8 /CMM (0.8-4.8); LYMPHOCYTES % (AUTO) 4.2 % (20.0-44.0); MEAN CORPUSCULAR HGB CONC 32 g/dl (31.0-36.0); MEAN CORPUSCULAR VOLUME 94 fL (80-96); MONOCYTES # (AUTO) 0.2 /CMM (0.1-1.30); MONOCYTES % (AUTO) 1.2 % (2.0-12.0); NEUTROPHILS # (AUTO) 17.3 /CMM (1.8-8.9); NEUTROPHILS % (AUTO) 94.5 % (43.0-81.0); PLATELET COUNT (AUTO) 94 /CMM (150-450); RDW COEFFICIENT OF VARIATION 21.9 (11.5-15.0); RED BLOOD CELL COUNT(AUTO) 2.88 MIL/uL (4.5-6.0); WHITE BLOOD COUNT (AUTO) 18.4 K/uL (4.3-11.0)
[2018-02-23 21:23] LABS: BAND % (MANUAL) 50 % (0.0-5.0); BASOPHILS % (MANUAL) 0 % (0.0-2.0); EOSINOPHILS % (MANUAL) 0 % (0-4); LYMPHOCYTES % (MANUAL) 12 % (16-48); MONOCYTES % (MANUAL) 9 % (0-11.0); NEUTROPHILS % (MANUAL) 29 (42-76)
[2018-02-23] MEDS: INSULIN GLARGINE, 100 UNIT/ML CARTRIDGE SQ SCH (21:43)
[2018-02-24] VITALS (95 sets, daily range): BP systolic 92–117; BP diastolic 48–77
[2018-02-24] MEDS ORDERED: DEXTROSE 50%-WATER 50 ML DISP.SYRIN IV PRN ×2 (00:30→15:00)
[2018-02-24] MEDS ORDERED: INSULIN REGULAR, HUMAN 100 UNIT/ML 3 ML VIAL SQ PRN (00:30)
[2018-02-24] MEDS: INSULIN REGULAR, HUMAN 100 UNIT/ML 3 ML VIAL SQ PRN ×3 (00:33→17:33)
[2018-02-24] MEDS: BLOOD SUGAR DIAGNOSTIC 1 EACH STRIP IN SCH ×5 (00:36→23:32)
--- NOTE | 2018-02-24 00:37 | NUR ---
0000 FLORINEF 0.1MG NOT GIVEN GT ON HOLD F/C IN PLACE.
--- NOTE | 2018-02-24 00:40 | NUR ---
0000 BS 164 COVERAGE NOT GIVEN PT NPO FOR GT REINSERTION IN AM, LANTUS 22 UNITS GIVEN FOR BS 174, TRENDING DOWN.
[2018-02-24] MEDS: IPRATROPIUM NEB FS 0.5 MG/2.5 ML AMPUL.NEB IH SCH ×2 (00:57→07:42)
[2018-02-24] MEDS: ALBUTEROL FS 2.5 MG/0.5 ML VIAL.NEB IH SCH ×2 (00:57→07:42)
[2018-02-24] MEDS: IV NS 0.9% 1,000 ML IV SCH ×2 (01:26→07:33)
[2018-02-24] MEDS: VANCOMYCIN 1 GM in IV D5W 250 ML IV SCH ×2 (03:56→12:00)
[2018-02-24 04:33] LABS: HEMATOCRIT 26 % (39-51); HEMOGLOBIN 8.1 g/dL (13.5-17.5); MEAN CORPUSCULAR HGB CONC 32 g/dl (31.0-36.0); MEAN CORPUSCULAR VOLUME 94 fL (80-96); PLATELET COUNT (AUTO) 79 /CMM (150-450); RDW COEFFICIENT OF VARIATION 21.5 (11.5-15.0); RED BLOOD CELL COUNT(AUTO) 2.71 MIL/uL (4.5-6.0); WHITE BLOOD COUNT (AUTO) 13.1 K/uL (4.3-11.0)
[2018-02-24 04:42] LABS: CALCIUM, SERUM 8.3 mg/dL (8.5-10.1); CREATININE 1.2 mg/dL (0.6-1.3); POTASSIUM 3.5 mmol/L (3.5-5.1)
[2018-02-24 04:47] LABS: ALBUMIN 1.9 g/dL (3.4-5.0); BILIRUBIN,TOTAL 0.6 mg/dL (0.2-1.0); MAGNESIUM 3.1 mg/dL (1.8-2.4); PHOSPHORUS 5.4 mg/dL (2.5-4.9); TOTAL PROTEIN, SERUM 6.5 g/dL (6.4-8.2)
[2018-02-24 04:49] LABS: TROPONIN I 0.028 ng/mL (0.00-0.056)
[2018-02-24 05:04] LABS: BAND % (MANUAL) 44 % (0.0-5.0); LYMPHOCYTES % (MANUAL) 14 % (16-48); MONOCYTES % (MANUAL) 5 % (0-11.0); NEUTROPHILS % (MANUAL) 37 (42-76)
[2018-02-24] MEDS: PIPERACILLIN /TAZOBACTAM 3.375 G in IV D5W 50 ML IV SCH ×4 (05:06→23:31)
[2018-02-24] MEDS: FLUDROCORTISONE 0.1 MG TABLET GT SCH ×6 (05:31→23:31)
--- NOTE | 2018-02-24 06:25 | NUR ---
ICU CLOSING NOTE LACTIC ACID 2.1, TRENDING DOWN, REPEAT SERIAL CONT, WILL ENDORSE TO AM RN TO F/U ON RESULTS, CONT NPO FOR POSSIBLE REINSERTION TODAY WILL ENDORSE TO F/U. PT KEPT CLEAN AND DRY, WELL REPOSITIONED.
[2018-02-24] MEDS: NOREPINEPHRINE 8 MG in IV D5W 500 ML IV PRN ×2 (07:33→18:15)
--- NOTE | 2018-02-24 07:42 | NUR ---
RT PATIENT REC'D TRACHED ON [facility] WITH ORDERED SETTINGS JOSELITO WELL. VENT ALARMS CHECKED + AUDIBLE. CUFF PRESSURE CHECKED PARCEL CONTRACTOR. AIRWAY PATENT AND SUCTIONED WITH SMALL AMT PALE SEMITHICK SECRETIONS.AMBU BAG AT [facility]. Addendum: 02/24/18 at 1616 by RICARDO FOX RT Amended: Links added.
[2018-02-24] MEDS: LEVETIRACETAM SOL (5 ML) 100 MG/ML UDC GT SCH ×2 (08:07→17:16)
[2018-02-24] MEDS: DOCUSATE SODIUM LIQ 100 MG/10 ML UDC GT SCH (08:07)
[2018-02-24] MEDS: ACIDOPHILUS/BULGARICUS 1 EACH TAB.CHEW GT SCH ×3 (08:07→17:15)
[2018-02-24] MEDS: ATORVASTATIN 10 MG TABLET GT SCH (08:08)
[2018-02-24] MEDS: PROSOURCE / PROSTAT (PYXIS) 30 ML UDC GT SCH (08:08)
[2018-02-24] MEDS: PANTOPRAZOLE 40 MG VIAL IV SCH ×2 (08:08→17:15)
[2018-02-24] MEDS: HYDROCORTISONE SOD SUCCINATE 100 MG/2 ML VIAL IV SCH ×3 (08:08→17:15)
[2018-02-24] MEDS: ASCORBIC ACID 500 MG TABLET GT SCH (08:08)
[2018-02-24] MEDS: TOPIRAMATE 100 MG TABLET GT SCH ×2 (08:08→17:15)
--- NOTE | 2018-02-24 08:40 | NUR ---
CONTROL CHEMIST NOTES RECEIVED PATIENT OBTUNDED , NOT IN ACUTE DISTRESS , TOLERATING CURRENT VENT SETTINGS OF AC 12 , TV 500 FIO2 90% AND PEEP OF 5 WITH SPO2 OF 100% , PORTEX # [address] SUCTIONED THICK WORKMAN SECRETIONS VIA TRACH AND ORAL , SR 80 ON BEDSIDE MONITOR , MCCOY CATHETER - GT PATENT AND INTACT ATTACHED TO LOW INTERMITTENT SUCTION DRAINING WITH GREENISH THICK OUTPUT , FC DRAINING VIA GRAVITY WITH LAURA COLORED URINE , SAMY PICC LINE WITH NS @ 150ML/HR AND LEVOPHED @8MCG/MIN INFUSING WELL , WILL CONTINUE TO MONITOR
--- NOTE | 2018-02-24 09:00 | NUR ---
NETWORK PLANNER NOTES MICHELINE HELD FOR SEDATION VACATION , VSS , NO DISTRESS NOTED , BILATERAL SOFT WRIST RESTRAINS IN PLACE , SON AT BEDSIDE , WILL CONTINUE TO MONITOR . Addendum: 02/24/18 at 0944 by IGOR LOPEZ RN WRONG PT
[2018-02-24] MEDS: IV NS 0.9% 1,000 ML IV PRN ×2 (09:30→16:01)
--- NOTE | 2018-02-24 11:58 | NUR ---
VISITOR INFORMATION ASSISTANT NOTES SEEN AND EVALUATED BY DR RAMOS AND DMITRIY , DISCUSSED LABS , CHEST XRAY, ON LEVOPHED @ 6MCG/MIN TO KEEP SBP ABOVE 90 , AFEBRILE , NO ACTIVE BLEEDING NOTED , WITH GOOD URINE OUTPUT , ABDOMEN NOTED WITH DISTENTION , GT MCCOY IN PLACE ON LOW INTERMITTENT SUCTION DRAINING WITH GREENISH AMOUNT OF SECRETIONS , PEG GOT DISLODGE YESTERDAY PENDING GT RE INSERTION UNDER DR FREED , PER DR RAMOS IF GT GOT REINSERTED , CUT IVF TO HALF , CHANGE SSI TO Q6 MILD SCALE .
[2018-02-24 12:20] LABS: ABG OXYGEN SATURATION 94.8 % (92.0-98.5); ABG PCO2 38.9 mmHg (35.0-45.0); ABG PH 7.402 (7.350-7.450); ABG PO2 82.3 mmHg (75.0-100.0); AaDO2 302.7 mmHg; COHb 0.3 % (0.5-1.5); MetHb 0.9 % (0.0-1.5); O2Hb 93.7 % (94.0-97.0); SITE, ABG Right Radial
[2018-02-24] MEDS: IPRATROPIUM NEB FS 0.5 MG/2.5 ML AMPUL.NEB NEB SCH ×2 (13:40→19:43)
[2018-02-24] MEDS: ALBUTEROL FS 2.5 MG/0.5 ML VIAL.NEB NEB SCH ×2 (13:40→19:43)
--- NOTE | 2018-02-24 14:00 | NUR ---
ASSISTANT DISTRIBUTION MANAGER NOTES SEEN AND EVALUATED BY DR FREED , DISCUSSED LABS , AFEBRILE , ON LEVOPHED @ 6MCG/MIN TO KEEP SBP ABOVE 90MMHG , NO ACTIVE BLEEDING NOTED , GT GOT DISLODGE YESTERDAY , FC INSERTED ATTACHED TO LOW INTERMITTENT SUCTION DRAINING WITH GREENISH OUTPUT , MD INSERTED GT , PT TOLERATED WELL , PER MD HANSEN LOW INTERMITTENT SUCTION , OK TO USE GT AND START GT FEEDING ORDERED , OBTAIN CONSENT FOR EGD AND PLACE PT NPO POST MIDNIGHT
[2018-02-24] MEDS: SOD FERRIC GLUC 125 MG in IV NS 0.9% 100 ML IV SCH (14:49)
[2018-02-24] MEDS: GLUCERNA 1.2 1,000 ML BOTTLE GT PRN (17:00)
--- NOTE | 2018-02-24 17:00 | NUR ---
RACKING MACHINE OPERATOR NOTES GT FEEDING OF GLUCERNA STARTED @ 30ML/HR , WILL TITRATE ACCORDINGLY PT TOLERATES
--- NOTE | 2018-02-24 20:00 | NUR ---
BRICKLAYER HELPER - NOTES - RECEIVED PATIENT OBTUNDED , NOT IN ACUTE DISTRESS, TOLERATING CURRENT VENT SETTINGS OF AC 12 , TV 500 FIO2 60% AND PEEP OF 5 WITH SPO2 > 94% , PORTEX # [address] SUCTIONED THICK WORKMAN SECRETIONS VIA TRACH AND ORAL, SR 80S ON BEDSIDE MONITOR, PEG TUBE REPLACED TODAY, PATENT AND INTACT FEEDING JEVITY @ 50 ML/HR, W 30 ML RESIDUALS (GOAL 70 ML/HR). FC DRAINING VIA GRAVITY WITH LAURA COLORED URINE, SAMY PICC LINE WITH NS @ 75 ML/HR AND LEVOPHED @ 6 MCG/MIN INFUSING WELL , WILL CONTINUE TO MONITOR
[2018-02-24] MEDS: INSULIN GLARGINE, 100 UNIT/ML CARTRIDGE SQ SCH (21:18)
--- NOTE | 2018-02-24 23:32 | NUR ---
0000 BLOOD SUGAR 183, NO COVERAGE PT WILL BE NPO FOR EGD IN AM, PT WAS ALREADY GIVEN LANTUS 22 UNITS
--- NOTE | 2018-02-24 23:59 | NUR ---
PT PLACED NPO POST MIDNIGHT
[2018-02-25] VITALS (59 sets, daily range): BP systolic 91–121; BP diastolic 51–76
[2018-02-25] MEDS: ALBUTEROL FS 2.5 MG/0.5 ML VIAL.NEB NEB SCH ×4 (01:06→19:44)
[2018-02-25] MEDS: IPRATROPIUM NEB FS 0.5 MG/2.5 ML AMPUL.NEB NEB SCH ×4 (01:06→19:44)
[2018-02-25 04:26] LABS: BASOPHILS % (AUTO) 0.2 % (0.0-2.0); EOSINOPHILS % (AUTO) 0.1 % (0.0-6.0); HEMATOCRIT 22 % (39-51); HEMOGLOBIN 7.3 g/dL (13.5-17.5); LYMPHOCYTES # (AUTO) 1.1 /CMM (0.8-4.8); MEAN CORPUSCULAR HGB CONC 34 g/dl (31.0-36.0); MEAN CORPUSCULAR VOLUME 92 fL (80-96); MONOCYTES # (AUTO) 0.3 /CMM (0.1-1.30); MONOCYTES % (AUTO) 1.8 % (2.0-12.0); NEUTROPHILS # (AUTO) 12.5 /CMM (1.8-8.9); NEUTROPHILS % (AUTO) 89.9 % (43.0-81.0); PLATELET COUNT (AUTO) 55 /CMM (150-450); RDW COEFFICIENT OF VARIATION 20.4 (11.5-15.0); RED BLOOD CELL COUNT(AUTO) 2.36 MIL/uL (4.5-6.0); WHITE BLOOD COUNT (AUTO) 13.9 K/uL (4.3-11.0)
[2018-02-25 04:29] LABS: CALCIUM, SERUM 8.3 mg/dL (8.5-10.1); CREATININE 1.4 mg/dL (0.6-1.3); MAGNESIUM 3.1 mg/dL (1.8-2.4); PHOSPHORUS 4.4 mg/dL (2.5-4.9); POTASSIUM 3.4 mmol/L (3.5-5.1)
[2018-02-25 05:02] LABS: BAND % (MANUAL) 1 % (0.0-5.0); LYMPHOCYTES % (MANUAL) 34 % (16-48); MONOCYTES % (MANUAL) 2 % (0-11.0); NEUTROPHILS % (MANUAL) 63 (42-76)
[2018-02-25] MEDS: IV NS 0.9% 1,000 ML IV PRN ×2 (05:38→23:23)
[2018-02-25] MEDS: BLOOD SUGAR DIAGNOSTIC 1 EACH STRIP IN SCH ×4 (05:38→23:39)
[2018-02-25] MEDS: PIPERACILLIN /TAZOBACTAM 3.375 G in IV D5W 50 ML IV SCH (05:41)
[2018-02-25] MEDS: FLUDROCORTISONE 0.1 MG TABLET GT SCH ×4 (05:41→23:39)
--- NOTE | 2018-02-25 08:09 | NUR ---
RT PATIENT REC'D TRACHED ON [facility] VENT WITH ORDERED SETTINGS JOSELITO WELL. VENT ALARMS CHECKED + AUDIBLE. CUFF PRESSURE CHECKED RECREATIONAL COUNSELOR. AIRWAY PATENT AND SUCTIONED WITH SMALL AMT PALE SEMITHICK SECRETIONS. AMBU BAG AT [facility]. Addendum: 02/25/18 at 1011 by RICARDO FOX RT Amended: Links added.
--- NOTE | 2018-02-25 08:31 | NUR ---
WOUND CARE CONSULT: PT RESTING AT THIS TIME. PER NURSING DOCUMENTATION, PT HAS LOWER EXTREMITY WOUNDS, PRESENT ON ADMISSION. PT ON LEATHA ISOFLEX LOW AIRLOSS BED. ALL SKIN PROTECTION AND PRESSURE ULCER PREVENTION MEASURES IN PLACE AND DISCUSSED WITH NURSING STAFF. WILL SEE PT PT CONDITION PERMITS. RECOMMEND DPM CONSULT. MD IN AGREEMENT WITH PLAN OF CARE. PT ON LEATHA ISOFLEX LOW AIRLOSS BED. CURRENT RUPAL SCORE IS 10.
[2018-02-25] MEDS: DOCUSATE SODIUM LIQ 100 MG/10 ML UDC GT SCH (09:00)
[2018-02-25] MEDS: ACIDOPHILUS/BULGARICUS 1 EACH TAB.CHEW GT SCH ×3 (09:00→18:44)
[2018-02-25] MEDS: ATORVASTATIN 10 MG TABLET GT SCH (09:00)
[2018-02-25] MEDS: ASCORBIC ACID 500 MG TABLET GT SCH (09:00)
[2018-02-25] MEDS: PROSOURCE / PROSTAT (PYXIS) 30 ML UDC GT SCH (09:00)
[2018-02-25] MEDS: PANTOPRAZOLE 40 MG VIAL IV SCH ×2 (09:33→18:43)
[2018-02-25] MEDS: HYDROCORTISONE SOD SUCCINATE 100 MG/2 ML VIAL IV SCH ×3 (09:33→18:43)
[2018-02-25] MEDS ORDERED: Z GUARD REMEDY 2 OZ OINT TP PRN (11:00)
--- NOTE | 2018-02-25 11:01 | NUR ---
WOUND CARE CONSULT: PT PRESENTS WITH LOWER EXTREMITY DRY WOUNDS, SACRAL SCARRING AND RAISED SCAR TO RT DORSAL HAND, PRESENT ON ADMISSION. RECOMMEND DPM CONSULT. PT NOTED TO HAVE 4+ PITTING EDEMA TO BILATERAL FEET AND GENERALIZED EDEMA. RECOMMENDATIONS MADE FOR SKIN PROTECTION AND DISCUSSED WITH NURSING STAFF. DEFER TO DPM FOR LOWER EXTREMITIES. WILL SEE PRN. PT ON [facility] LOW AIRSS BED. MD IN AGREEMENT WITH PLAN OF CARE. CURRENT RUPAL SCORE IS 10. Addendum: 02/25/18 at 1104 by JERRELL GOMEZ WNDNU Amended: Links added.
[2018-02-25] MEDS ORDERED: POTASSIUM CHLORIDE 20 MEQ POWDER PACKET NG SCH (11:30)
[2018-02-25] MEDS: MEROPENEM 1 G in IV NS 0.9% 100 ML IV SCH ×2 (12:29→19:06)
[2018-02-25] MEDS: LEVETIRACETAM SOL (5 ML) 100 MG/ML UDC GT SCH ×2 (12:30→18:43)
[2018-02-25] MEDS: TOPIRAMATE 100 MG TABLET GT SCH ×2 (12:30→18:44)
[2018-02-25] MEDS: GLUCERNA 1.2 1,000 ML BOTTLE GT PRN (12:33)
[2018-02-25] MEDS: SUCRALFATE 1 G/10 ML UDC GT SCH ×3 (12:37→21:53)
[2018-02-25] MEDS: INSULIN REGULAR, HUMAN 100 UNIT/ML 3 ML VIAL SQ PRN ×3 (12:46→23:40)
[2018-02-25] MEDS: Z GUARD REMEDY 2 OZ OINT TP SCH (12:57)
[2018-02-25] MEDS: SOD FERRIC GLUC 125 MG in IV NS 0.9% 100 ML IV SCH (14:23)
--- NOTE | 2018-02-25 15:52 | NUR ---
RT PER DR BARAKAT PEEP INCREASED TO +8. TITRATE FIO2 TO MAINTAIN SPO2 ABOVE 92% Addendum: 02/25/18 at 1552 by RICARDO FOX RT Amended: Links added.
[2018-02-25] MEDS: INSULIN GLARGINE, 100 UNIT/ML CARTRIDGE SQ SCH (21:54)
[2018-02-26] VITALS (49 sets, daily range): BP systolic 84–116; BP diastolic 55–75
[2018-02-26] MEDS: IPRATROPIUM NEB FS 0.5 MG/2.5 ML AMPUL.NEB NEB SCH ×4 (00:56→20:02)
[2018-02-26] MEDS: ALBUTEROL FS 2.5 MG/0.5 ML VIAL.NEB NEB SCH ×4 (00:57→20:02)
[2018-02-26] MEDS: MEROPENEM 1 G in IV NS 0.9% 100 ML IV SCH ×2 (02:44→11:18)
[2018-02-26 04:51] LABS: BASOPHILS # (AUTO) 0.1 /CMM (0.0-0.2); BASOPHILS % (AUTO) 0.4 % (0.0-2.0); HEMATOCRIT 22 % (39-51); LYMPHOCYTES # (AUTO) 1.2 /CMM (0.8-4.8); LYMPHOCYTES % (AUTO) 8.5 % (20.0-44.0); MEAN CORPUSCULAR HGB CONC 32 g/dl (31.0-36.0); MEAN CORPUSCULAR VOLUME 93 fL (80-96); MONOCYTES # (AUTO) 0.3 /CMM (0.1-1.30); MONOCYTES % (AUTO) 2.2 % (2.0-12.0); NEUTROPHILS # (AUTO) 12.8 /CMM (1.8-8.9); NEUTROPHILS % (AUTO) 88.9 % (43.0-81.0); PLATELET COUNT (AUTO) 62 /CMM (150-450); RDW COEFFICIENT OF VARIATION 20.4 (11.5-15.0); RED BLOOD CELL COUNT(AUTO) 2.33 MIL/uL (4.5-6.0); WHITE BLOOD COUNT (AUTO) 14.4 K/uL (4.3-11.0)
[2018-02-26 05:12] LABS: CALCIUM, SERUM 8.5 mg/dL (8.5-10.1); CREATININE 1.5 mg/dL (0.6-1.3); POTASSIUM 3.7 mmol/L (3.5-5.1)
[2018-02-26 05:37] LABS: BAND % (MANUAL) 10 % (0.0-5.0); LYMPHOCYTES % (MANUAL) 5 % (16-48); MONOCYTES % (MANUAL) 2 % (0-11.0); NEUTROPHILS % (MANUAL) 83 (42-76)
[2018-02-26] MEDS ORDERED: FLUDROCORTISONE 0.1 MG TABLET ONE (05:37)
[2018-02-26] MEDS: FLUDROCORTISONE 0.1 MG TABLET GT SCH ×3 (05:59→17:42)
[2018-02-26] MEDS: BLOOD SUGAR DIAGNOSTIC 1 EACH STRIP IN SCH ×3 (05:59→17:50)
[2018-02-26] MEDS: SUCRALFATE 1 G/10 ML UDC GT SCH ×4 (08:08→21:06)
[2018-02-26] MEDS: TOPIRAMATE 100 MG TABLET GT SCH ×2 (08:19→17:42)
[2018-02-26] MEDS: ATORVASTATIN 10 MG TABLET GT SCH (08:19)
[2018-02-26] MEDS: ACIDOPHILUS/BULGARICUS 1 EACH TAB.CHEW GT SCH ×3 (08:19→17:41)
[2018-02-26] MEDS: HYDROCORTISONE SOD SUCCINATE 100 MG/2 ML VIAL IV SCH ×3 (08:19→17:42)
[2018-02-26] MEDS: DOCUSATE SODIUM LIQ 100 MG/10 ML UDC GT SCH (08:19)
[2018-02-26] MEDS: LEVETIRACETAM SOL (5 ML) 100 MG/ML UDC GT SCH ×2 (08:19→17:41)
[2018-02-26] MEDS: ASCORBIC ACID 500 MG TABLET GT SCH (08:19)
[2018-02-26] MEDS: PANTOPRAZOLE 40 MG VIAL IV SCH ×2 (08:19→17:41)
[2018-02-26] MEDS: PROSOURCE / PROSTAT (PYXIS) 30 ML UDC GT SCH (08:19)
[2018-02-26 08:20] LABS: ABG BASE EXCESS -1.9 mmol/L; ABG OXYGEN SATURATION 93.4 % (92.0-98.5); ABG PCO2 37.6 mmHg (35.0-45.0); ABG PH 7.398 (7.350-7.450); ABG PO2 77.3 mmHg (75.0-100.0); AaDO2 236.9 mmHg; COHb 0.3 % (0.5-1.5); MetHb 1.9 % (0.0-1.5); O2Hb 91.3 % (94.0-97.0); PEEP,BG 8 cm H2O; SITE, ABG Left Radial; VT, ABG 500 mL
[2018-02-26] MEDS: Z GUARD REMEDY 2 OZ OINT TP SCH (08:20)
[2018-02-26] MEDS: IV D5/0.45 NACL 1,000 ML IV PRN (11:18)
[2018-02-26] MEDS: INSULIN REGULAR, HUMAN 100 UNIT/ML 3 ML VIAL SQ PRN ×2 (11:49→17:52)
[2018-02-26 12:11] LABS: AFP, TUMOR MARKER 4.1 ng/mL (0.0-8.3)
[2018-02-26] MEDS: SOD FERRIC GLUC 125 MG in IV NS 0.9% 100 ML IV SCH (14:47)
--- NOTE | 2018-02-26 17:55 | NUR ---
RT NOTE: PT. 58 Y OLD MALE REC. @ 0700 AM NON RESPONSIVE. TRACHE'D PORTEX # 9 ON [facility]. VENT WITH NOTED SETTINGS, ALARMS ARE SET AND FUNCTIONAL, B/S RHONCHI. DYER'X FOR MOD. AMT. OF SECRETIONS. THICK WHIT/YELLOW TRACH CARE DONE. HME CHANGED EQUAL CHEST RISE NOTED. INLINE TX'S GIVEN NO ADVERSE REACTION NOTED. JOSELITO. WELL AND REMAIN ON SAME SETTINGS, POST ABG PER DR. BARAKAT. VENT PLUGGED INTO RED OUT LET. CONTINUE FOR CARE AND MONITOR. AMBU BAG REMAIN AT THE BEDSIDE,. REPORT WILL PASS TO PM SHIFT. Addendum: 02/26/18 at 1757 by LISETTE HIGGINS RT Amended: Links added.
[2018-02-26 18:32] LABS: APPEARANCE,URINE TURBID (CLEAR); BILIRUBIN,URINE NEGATIVE (NEGATIVE); BLOOD, URINE 3+ Ery/uL (NEGATIVE); COLOR,URINE YELLOW (YELLOW); KETONES,URINE NEGATIVE (NEGATIVE); LEUKOCYTE ESTERASE ,URINE NEGATIVE (NEGATIVE); NITRITE, URINE NEGATIVE (NEGATIVE); PROTEIN,URINE NEGATIVE (NEGATIVE); UGLUCOSE NEGATIVE (NEGATIVE); UROBILINOGEN,URINE 0.2 EU/dL (0.2)
[2018-02-26 18:37] LABS: OSMOLALITY,URINE 525 mOS/kg (340-1090)
[2018-02-26 18:41] LABS: CREATININE, URINE 84.5 MG/DL (30.0-125.0); URINE SODIUM, RANDOM < 5 mmol/l (40-220); URINE TOTAL PROTEIN 27.9 mg/dL (0-11.9)
[2018-02-26] MEDS: GLUCERNA 1.2 1,000 ML BOTTLE GT PRN (19:00)
[2018-02-26 19:29] LABS: BACTERIA,URINE Few /HPF (None Seen); RBC,URINE TOO NUMEROUS TO COUN /HPF (0-2)
[2018-02-26 19:30] LABS: MUCUS,URINE Few /LPF (None Seen); SQUAMOUS EPITHELIAL CELL,UR Rare /HPF (None Seen)
--- NOTE | 2018-02-26 19:40 | NUR ---
HEAD OF DIGITAL NOTE RECEIVED PT ON MECH VENT WITH SETTINGS WELL TOLERATED AT THIS TIME. OBTUNDED WITH EYES OPEN. HOB ELEVATED AND ON ASPIRATION PRECAUTIONS. GT FEEDING NOT TOLERATED AT THIS TIME WITH 180CC RESIDUAL AND FEEDING ON HOLD. MCCOY CATHETER IN PLACE AND DRAINING BY GRAVITY. IV SAMY PICC CLEAN AND DRY WITH FLUIDS INFUSING. WILL CONTINUE TO MONITOR.
[2018-02-26 19:49] LABS: EOSINOPHIL,URINE None Seen
--- NOTE | 2018-02-26 20:28 | NUR ---
RECEIVED PT TRACHED PTX 9 ON VENT. NO RESP DISTRESS NOTED. PT TOLERATING VENT SETTINGS. SX'D FOR SML AMT OF THIN WHITE SECRETIONS. VENT ALARMS SET AND AUDIBLE. AMBU BAG AT BEDSIDE. VENT PLUGGED INTO RED OUTLET. WILL CONTINUE TO MONITOR. Addendum: 02/26/18 at 2028 by CAMILLE WILKINS RT Amended: Links added.
[2018-02-26] MEDS: CEFTRIAXONE 1 G in IV D5W 50 ML IV SCH (20:29)
[2018-02-26] MEDS: INSULIN GLARGINE, 100 UNIT/ML CARTRIDGE SQ SCH (21:38)
--- NOTE | 2018-02-26 21:44 | NUR ---
LATEX FOAM WORKER NOTE CHECKED GTUBE WITH 210CC RESIDUALS NOTED. FEEDING REMAINS CLAMPED AT THIS TIME. HOB ELEVATED. WILL CONTINUE TO MONITOR.
--- NOTE | 2018-02-26 23:15 | NUR ---
CLAIMS PROCESSOR NOTE GT RESIDUALS RECHECKED WITH ONLY 30CC OUTPUT. WILL RESTART FEEDING AT 35CC/HR. ON ASPIRATION PRECAUTIONS. WILL MONITOR.
[2018-02-27] VITALS (9 sets, daily range): BP systolic 96–120; BP diastolic 59–77
[2018-02-27] MEDS: FLUDROCORTISONE 0.1 MG TABLET GT SCH ×5 (00:01→23:11)
[2018-02-27] MEDS: BLOOD SUGAR DIAGNOSTIC 1 EACH STRIP IN SCH ×5 (00:01→23:16)
[2018-02-27] MEDS: INSULIN REGULAR, HUMAN 100 UNIT/ML 3 ML VIAL SQ PRN ×5 (00:18→23:17)
--- NOTE | 2018-02-27 00:47 | NUR ---
PER MD, TITRATE FIO2 AND PEEP ABLE. PT TITRATED TO 40% FIO2 AND PEEP OF 5. RN NOTIFIED. WILL CONTINUE TO MONITOR.
[2018-02-27] MEDS: ALBUTEROL FS 2.5 MG/0.5 ML VIAL.NEB NEB SCH ×4 (00:56→19:28)
[2018-02-27] MEDS: IPRATROPIUM NEB FS 0.5 MG/2.5 ML AMPUL.NEB NEB SCH ×4 (00:56→19:28)
--- NOTE | 2018-02-27 01:15 | NUR ---
PT TRANSFERRED TO 106
--- NOTE | 2018-02-27 01:16 | NUR ---
IMAGING SERVICES DIRECTOR NOTE PT TRANSFERRED SAFELY TO ROOM 106 WITH RT AT BEDSIDE. GAVE REPORT TO ALEJANDRO STEVEN FOR CONTINUITY OF CARE.
[2018-02-27] MEDS: IV D5/0.45 NACL 1,000 ML IV PRN ×2 (05:27→16:40)
[2018-02-27 06:42] LABS: THYROID STIMULATING HORMONE 4.485 uIU/mL (0.358-3.74); URIC ACID 7.8 mg/dL (2.6-7.2)
[2018-02-27 06:48] LABS: CALCIUM, SERUM 8.7 mg/dL (8.5-10.1); CREATININE 1.3 mg/dL (0.6-1.3); MAGNESIUM 3.3 mg/dL (1.8-2.4); PHOSPHORUS 3.9 mg/dL (2.5-4.9); POTASSIUM 3.8 mmol/L (3.5-5.1)
[2018-02-27 07:06] LABS: BASOPHILS % (AUTO) 0.1 % (0.0-2.0); EOSINOPHILS % (AUTO) 0.1 % (0.0-6.0); HEMATOCRIT 26 % (39-51); HEMOGLOBIN 8.6 g/dL (13.5-17.5); LYMPHOCYTES # (AUTO) 2.1 /CMM (0.8-4.8); LYMPHOCYTES % (AUTO) 18.7 % (20.0-44.0); MEAN CORPUSCULAR HGB CONC 33 g/dl (31.0-36.0); MEAN CORPUSCULAR VOLUME 93 fL (80-96); MONOCYTES # (AUTO) 0.6 /CMM (0.1-1.30); MONOCYTES % (AUTO) 5.5 % (2.0-12.0); NEUTROPHILS # (AUTO) 8.5 /CMM (1.8-8.9); NEUTROPHILS % (AUTO) 75.6 % (43.0-81.0); PLATELET COUNT (AUTO) 80 /CMM (150-450); RDW COEFFICIENT OF VARIATION 19.5 (11.5-15.0); RED BLOOD CELL COUNT(AUTO) 2.83 MIL/uL (4.5-6.0); WHITE BLOOD COUNT (AUTO) 11.2 K/uL (4.3-11.0)
--- NOTE | 2018-02-27 07:12 | NUR ---
TELE/RN NOTES: RECEIVED PT. VIA BED W/ ACLS PROTOCOL W/ ICU NURSE SELIN. HOB ELEVATED. OBTUNDED. MECH. VENT. TOLERATING VENT SETTINGS WELL. ON TELE MONITOR SR. W/ GTF TOLERATING WELL. W/ IVF TOLERATING WELL. W/ GENERALIZED EDEMA PITTING + 2 ALL OVER. W/ F/C DRAINING VIA GRAVITY. NO FACIAL GRIMACES OR MOANING NOTED. WILL CONTINUE TO MONITOR. REPORT GIVEN TO NEXT SHIFT NURSE FOR CHELLE.
[2018-02-27] MEDS: PANTOPRAZOLE 40 MG VIAL IV SCH ×2 (08:34→16:51)
[2018-02-27] MEDS: SUCRALFATE 1 G/10 ML UDC GT SCH ×4 (08:34→23:02)
[2018-02-27] MEDS: ACIDOPHILUS/BULGARICUS 1 EACH TAB.CHEW GT SCH ×3 (08:34→16:51)
[2018-02-27] MEDS: LEVETIRACETAM SOL (5 ML) 100 MG/ML UDC GT SCH ×2 (08:34→16:51)
[2018-02-27] MEDS: HYDROCORTISONE SOD SUCCINATE 100 MG/2 ML VIAL IV SCH ×3 (08:34→16:51)
[2018-02-27] MEDS: ATORVASTATIN 10 MG TABLET GT SCH (08:34)
[2018-02-27] MEDS: ASCORBIC ACID 500 MG TABLET GT SCH (08:34)
[2018-02-27] MEDS: DOCUSATE SODIUM LIQ 100 MG/10 ML UDC GT SCH (08:34)
[2018-02-27] MEDS: TOPIRAMATE 100 MG TABLET GT SCH ×2 (08:35→16:51)
[2018-02-27] MEDS: Z GUARD REMEDY 2 OZ OINT TP SCH (08:37)
[2018-02-27] MEDS: PROSOURCE / PROSTAT (PYXIS) 30 ML UDC GT SCH (08:37)
--- NOTE | 2018-02-27 08:41 | NUR ---
RT RECEIVED PT TRACH VENT DEPENDENT WITH NOTED SETTINGS, CLINICAL EDUCATION CONSULTANT DONE AND TRACH IS SECURE. VENT ALARMS CHECKED AND AUDIBLE. VENT IS PLUGGED IN RED OUTLET. SX WITH MOD THK WHITE/CLEAR W/ BLOOD TINGED SECRETIONS, BREATHING TX GIVEN AND PT TOLERATING SETTINGS WELL. AMBU BAG NOTED HOB. PT ON CONTINUOUS PULSE OX. NO SOB OR RESP DISTRESS NOTED, WILL CONTINUE TO MONITOR T/O SHIFT.
[2018-02-27 09:45] LABS: LYMPHOCYTES % (MANUAL) 18 % (16-48); MONOCYTES % (MANUAL) 4 % (0-11.0); NEUTROPHILS % (MANUAL) 78 (42-76)
[2018-02-27 09:47] LABS: OCCULT BLOOD STOOL NEGATIVE (NEGATIVE)
[2018-02-27] MEDS: SOD FERRIC GLUC 125 MG in IV NS 0.9% 100 ML IV SCH (16:39)
--- NOTE | 2018-02-27 19:28 | NUR ---
Handoff for night TENISHA River. Nathan Saravia RN
--- NOTE | 2018-02-27 19:32 | NUR ---
RECEIVED PT TRACHED PTX 9 ON VENT. NO RESP DISTRESS NOTED. PT TOLERATING VENT SETTINGS. SX'D FOR MOD AMT OF THICK WHITE SECRETIONS. VENT ALARMS SET AND AUDIBLE. AMBU BAG AT BEDSIDE. VENT PLUGGED INTO RED OUTLET. WILL CONTINUE TO MONITOR. Addendum: 02/27/18 at 1932 by LANI LAUREN RT Amended: Links added.
[2018-02-27] MEDS: CEFTRIAXONE 1 G in IV D5W 50 ML IV SCH (23:02)
[2018-02-27] MEDS: INSULIN GLARGINE, 100 UNIT/ML CARTRIDGE SQ SCH (23:15)
[2018-02-28] VITALS: BP 119/63
[2018-02-28] MEDS: IPRATROPIUM NEB FS 0.5 MG/2.5 ML AMPUL.NEB NEB SCH ×4 (01:27→19:51)
[2018-02-28] MEDS: ALBUTEROL FS 2.5 MG/0.5 ML VIAL.NEB NEB SCH ×4 (01:27→19:51)
[2018-02-28] MEDS: GLUCERNA 1.2 1,000 ML BOTTLE GT PRN (03:36)
[2018-02-28 04:00] VITALS: BP 119/84
[2018-02-28] MEDS ORDERED: FLUDROCORTISONE 0.1 MG TABLET ONE (05:48)
[2018-02-28] MEDS: BLOOD SUGAR DIAGNOSTIC 1 EACH STRIP IN SCH ×3 (06:04→17:50)
[2018-02-28] MEDS: FLUDROCORTISONE 0.1 MG TABLET GT SCH (06:04)
[2018-02-28] MEDS: INSULIN REGULAR, HUMAN 100 UNIT/ML 3 ML VIAL SQ PRN ×3 (06:06→17:52)
[2018-02-28] MEDS: IV D5/0.45 NACL 1,000 ML IV PRN (06:09)
[2018-02-28 06:22] LABS: BASOPHILS % (AUTO) 0.1 % (0.0-2.0); EOSINOPHILS % (AUTO) 0.2 % (0.0-6.0); HEMATOCRIT 26 % (39-51); HEMOGLOBIN 8.3 g/dL (13.5-17.5); LYMPHOCYTES # (AUTO) 1.9 /CMM (0.8-4.8); LYMPHOCYTES % (AUTO) 15.3 % (20.0-44.0); MEAN CORPUSCULAR HGB CONC 31 g/dl (31.0-36.0); MEAN CORPUSCULAR VOLUME 95 fL (80-96); MONOCYTES # (AUTO) 0.7 /CMM (0.1-1.30); MONOCYTES % (AUTO) 5.8 % (2.0-12.0); NEUTROPHILS # (AUTO) 9.5 /CMM (1.8-8.9); NEUTROPHILS % (AUTO) 78.6 % (43.0-81.0); PLATELET COUNT (AUTO) 109 /CMM (150-450); RDW COEFFICIENT OF VARIATION 20.7 (11.5-15.0); RED BLOOD CELL COUNT(AUTO) 2.77 MIL/uL (4.5-6.0); WHITE BLOOD COUNT (AUTO) 12.1 K/uL (4.3-11.0)
[2018-02-28 06:29] LABS: CALCIUM, SERUM 8.2 mg/dL (8.5-10.1); CREATININE 1.2 mg/dL (0.6-1.3); MAGNESIUM 3.1 mg/dL (1.8-2.4); PHOSPHORUS 3.3 mg/dL (2.5-4.9); POTASSIUM 3.5 mmol/L (3.5-5.1)
--- NOTE | 2018-02-28 06:51 | NUR ---
RN NOTES RECEIVED PATIENT WITH GTF AT 35cc/hr, PER REPORT, PATIENT HAS BEEN HAVING HIGH GASTRIC RESIDUALS. CHECKED PATIENT'S RESIDUAL AND NOTED TO BE 30cc. WILL ADVANCE GTF RATE BY 10cc/hr EVERY 8HOURS TO GOAL OF 70cc/hr, NOTED ON RD RECOMMENDATIONS. PATIENT CURRENTLY ON 45cc/hr, MONITORED GASTRIC RESIDUAL CLOSELY AND NOTED TO BE LESS THAN 30 OVERNIGHT. WILL ENDORSE ACCORDINGLY FOR MONITORING AND TO ADVANCE PER PATIENT'S TOLERANCE. CONT ON CARAFATE ORDERED. VENT SETTINGS TOLERATED WELL, AIRWAY KEPT CLEAR, SUCTIONED AIRWAY NEEDED. F/C INTACT AND DRAINING WELL. IVF ORDERED ON SAMY PICC LINE, INTACT AND PATENT. NSR WITH HR IN THE 80-90s.
--- NOTE | 2018-02-28 07:30 | NUR ---
TELE/RN NOTES: RECEIVED PT. VIA BED W/ ACLS PROTOCOL HOB ELEVATED. OBTUNDED. MECH. VENT. TOLERATING VENT SETTINGS WELL. ON TELE MONITOR SR. W/ GTF TOLERATING WELL. W/ IVF TOLERATING WELL. W/ GENERALIZED EDEMA PITTING + 2 ALL OVER. W/ F/C DRAINING VIA GRAVITY. NO FACIAL GRIMACES OR MOANING NOTED. NO S/S OF RESP DISTRESS OR ACUTE PAIN
--- NOTE | 2018-02-28 07:47 | NUR ---
RT PT RECEIVED WITH A PORTEX 9 TRACH ON THE VENT WITH NOTED SETTINGS. PT IS AWAKE BUT DOES NOT FOLLOW COMMANDS. VENT ALARMS ARE SET AND AUDIBLE WITH BVM BY BEDSIDE. CORE LAYER MACHINE OPERATOR CUFF PRESSURE NOTED. VENT IS PLUGGED INTO RED OUTLET. HHN TX GIVEN INLINE WITH NO ADVERSE REACTIONS. SX'D MODERATE THIN BLOOD TINGED SECRETIONS. NO RESPIRATORY DISTRESS NOTED AT THIS TIME, WILL CONTINUE TO MONITOR. Addendum: 02/28/18 at 0846 by GERARDO BOURGEOIS RT Amended: Links added.
[2018-02-28 08:00] VITALS: BP 134/82
--- NOTE | 2018-02-28 08:00 | NUR ---
INLETTER NURSE PATIENT HAS NO RESIDUAL FEEDING INCREASED TO 65ML/HR ORDERED 200 H2O GIVEN WITH MEDS AND TOLERATED. HOB 30 DEGREES FOR ASPIRATION PRECAUTION.
[2018-02-28] MEDS: LEVETIRACETAM SOL (5 ML) 100 MG/ML UDC GT SCH ×2 (08:30→17:02)
[2018-02-28] MEDS: SUCRALFATE 1 G/10 ML UDC GT SCH ×4 (08:30→21:15)
[2018-02-28] MEDS: ACIDOPHILUS/BULGARICUS 1 EACH TAB.CHEW GT SCH ×3 (08:30→17:02)
[2018-02-28] MEDS: DOCUSATE SODIUM LIQ 100 MG/10 ML UDC GT SCH (08:31)
[2018-02-28] MEDS: PANTOPRAZOLE 40 MG VIAL IV SCH ×2 (08:32→17:02)
[2018-02-28] MEDS: HYDROCORTISONE SOD SUCCINATE 100 MG/2 ML VIAL IV SCH ×3 (08:32→17:02)
[2018-02-28] MEDS: TOPIRAMATE 100 MG TABLET GT SCH ×2 (08:32→17:02)
[2018-02-28] MEDS: ASCORBIC ACID 500 MG TABLET GT SCH (08:32)
[2018-02-28] MEDS: PROSOURCE / PROSTAT (PYXIS) 30 ML UDC GT SCH (08:33)
[2018-02-28] MEDS: ATORVASTATIN 10 MG TABLET GT SCH (08:36)
[2018-02-28] MEDS: Z GUARD REMEDY 2 OZ OINT TP SCH (08:57)
[2018-02-28 12:56] VITALS: BP 124/78
--- NOTE | 2018-02-28 15:00 | NUR ---
SWIFT TENDER NOTES PATIENT CONTINUES TO RETAIN FLUID DOCTOR AWARE AND NEW ORDERS TO HOLD FLUIDS ,FEEDING HELD ,IV FLUIDS HELD . OUTPUT 850 ML MCCOY CATH. WILL CONTINUE TO MONITOR
[2018-02-28 16:00] VITALS: BP 111/75
--- NOTE | 2018-02-28 17:00 | NUR ---
BOTTOM HOOP DRIVER NOTES NEW ORDERS FROM DR LIZANDRO QUIGLEY IVP 40MG NOW, REPEAT CXR AND BNP IN THE AM WILL INDORSE TO CHELLE.
[2018-02-28] MEDS ORDERED: FUROSEMIDE 20 MG/2 ML VIAL IV ONE (18:00)
--- NOTE | 2018-02-28 19:51 | NUR ---
PT RECEIVED TRACHED ON THE VENT WITH NOTED SETINGS. VENT ALARMS ARE SET AND AUDIBLE WITH BVM BY BEDSIDE. INTERNATIONAL RECRUITER CUFF PRESSURE NOTED. HHN TX GIVEN IN LINE WITH NO ADVERSE REACTIONS. VENT IS PLUGGED INTO RED OUTLET. PT SX'D MODERATE THICK PALE YELLOW SECRETIONS. NO RESPIRATORY DISTRESS NOTED AT THIS TIME, WILL CONTINUE TO MONITOR. Addendum: 02/28/18 at 1951 by LNAI LAUREN RT Amended: Links added.
[2018-02-28 20:00] VITALS: BP 116/68
[2018-02-28] MEDS: CEFTRIAXONE 1 G in IV D5W 50 ML IV SCH (21:15)
[2018-02-28] MEDS: INSULIN GLARGINE, 100 UNIT/ML CARTRIDGE SQ SCH (21:17)
[2018-03-01] VITALS: BP_SYST 109; BP_SYST 112; BP_DIAS 66; BP_DIAS 68
[2018-03-01] MEDS: BLOOD SUGAR DIAGNOSTIC 1 EACH STRIP IN SCH ×5 (00:13→23:12)
[2018-03-01] MEDS: INSULIN REGULAR, HUMAN 100 UNIT/ML 3 ML VIAL SQ PRN ×5 (00:15→23:13)
[2018-03-01] MEDS: IPRATROPIUM NEB FS 0.5 MG/2.5 ML AMPUL.NEB NEB SCH ×4 (01:49→19:49)
[2018-03-01] MEDS: ALBUTEROL FS 2.5 MG/0.5 ML VIAL.NEB NEB SCH ×4 (01:49→19:48)
[2018-03-01 04:00] VITALS: BP 95/60
[2018-03-01] MEDS: GLUCERNA 1.2 1,000 ML BOTTLE GT PRN (05:09)
[2018-03-01 06:04] LABS: CALCIUM, SERUM 8.1 mg/dL (8.5-10.1); CREATININE 1.4 mg/dL (0.6-1.3); MAGNESIUM 2.5 mg/dL (1.8-2.4); PHOSPHORUS 2.9 mg/dL (2.5-4.9); POTASSIUM 3.2 mmol/L (3.5-5.1)
[2018-03-01 06:14] LABS: BASOPHILS % (AUTO) 0.3 % (0.0-2.0); EOSINOPHILS % (AUTO) 0.3 % (0.0-6.0); HEMATOCRIT 25 % (39-51); HEMOGLOBIN 7.8 g/dL (13.5-17.5); LYMPHOCYTES # (AUTO) 2.6 /CMM (0.8-4.8); LYMPHOCYTES % (AUTO) 19.2 % (20.0-44.0); MEAN CORPUSCULAR HGB CONC 31 g/dl (31.0-36.0); MEAN CORPUSCULAR VOLUME 95 fL (80-96); MONOCYTES % (AUTO) 7.6 % (2.0-12.0); NEUTROPHILS # (AUTO) 9.9 /CMM (1.8-8.9); NEUTROPHILS % (AUTO) 72.6 % (43.0-81.0); PLATELET COUNT (AUTO) 188 /CMM (150-450); RDW COEFFICIENT OF VARIATION 19.6 (11.5-15.0); RED BLOOD CELL COUNT(AUTO) 2.68 MIL/uL (4.5-6.0); WHITE BLOOD COUNT (AUTO) 13.7 K/uL (4.3-11.0)
--- NOTE | 2018-03-01 06:45 | NUR ---
RN CLOSING NOTE WATER FLUSHING ORDERED. GTF RESTARTED ORDERED, GASTRIC RESIDUAL MONITORED, HOB ELEVATED. ASPIRATION PRECAUTION OBSERVED. VENT SETTINGS TOLERATED WELL. AIRWAY SUCTIONED NEEDED, KEPT CLEAR. F/C INTACT AND DRAINING WELL, DIURESING WELL. REMAINS NSR. TURNED AND REPOSITIONED. TRACH CARE AND ORAL CARE DONE. SAFETY AND COMFORT ENSURED AT ALL TIMES. NEEDS ANTICIPATED AND MET. WILL ENDORSE ACCORDINGLY FOR CONTINUITY OF CARE.
--- NOTE | 2018-03-01 07:31 | NUR ---
GRAPHOTYPE OPERATOR OPENING NOTE RECEIVED PT SITTING UPRIGHT IN BED, OBTUNDED. PT CURRENTLY ON VENT, TOLERATING WELL W/ FREQUENT SUCTIONING. NO FACIAL GRIMACING OR MOANING NOTED. PICC LINE INTACT, DRESSING KEPT CLEAN AND DRY. GENERALIZED EDEMA TO BUE/BLE, EXTREMITIES KEPT ELEVATED. WILL REPOSITION PER PROTOCOL TO PREVENT FURTHER SKIN ISSUES. SAFETY MEASURES ARE IN PLACE. WILL CONTINUE TO MONITOR THROUGHOUT SHIFT FOR CONTINUITY OF CARE.
--- NOTE | 2018-03-01 07:34 | NUR ---
Male matthias pt received on mechanical vent. Pt matthias is secure. Vent is plugged into a red outlet, alarms are set and audible, and BMV is at bedside. Addendum: 03/01/18 at 0736 by SD DOYLE RT Amended: Links added.
[2018-03-01 08:00] VITALS: BP 98/69
[2018-03-01 08:08] LABS: IMMUNOGLOBULIN A, SERUM 187 mg/dL (90-386); IMMUNOGLOBULIN G, SERUM 1335 mg/dL (700-1600); IMMUNOGLOBULIN M, SERUM 57 mg/dL (20-172)
[2018-03-01] MEDS: ACIDOPHILUS/BULGARICUS 1 EACH TAB.CHEW GT SCH ×3 (08:25→17:05)
[2018-03-01] MEDS: LEVETIRACETAM SOL (5 ML) 100 MG/ML UDC GT SCH ×2 (08:25→17:05)
[2018-03-01] MEDS: ASCORBIC ACID 500 MG TABLET GT SCH (08:25)
[2018-03-01] MEDS: HYDROCORTISONE SOD SUCCINATE 100 MG/2 ML VIAL IV SCH ×3 (08:25→17:05)
[2018-03-01] MEDS: DOCUSATE SODIUM LIQ 100 MG/10 ML UDC GT SCH (08:25)
[2018-03-01] MEDS: PANTOPRAZOLE 40 MG VIAL IV SCH ×2 (08:25→17:05)
[2018-03-01] MEDS: ATORVASTATIN 10 MG TABLET GT SCH (08:25)
[2018-03-01] MEDS: TOPIRAMATE 100 MG TABLET GT SCH ×2 (08:25→17:05)
[2018-03-01] MEDS: SUCRALFATE 1 G/10 ML UDC GT SCH ×4 (08:25→21:21)
[2018-03-01] MEDS: PROSOURCE / PROSTAT (PYXIS) 30 ML UDC GT SCH (08:29)
[2018-03-01] MEDS ORDERED: POTASSIUM CHLORIDE 20 MEQ TAB.PRT.SR PO ONE (08:30)
[2018-03-01] MEDS: Z GUARD REMEDY 2 OZ OINT TP SCH (08:31)
[2018-03-01] MEDS ORDERED: POTASSIUM CHLORIDE 20 MEQ POWDER PACKET PO ONE (09:30)
[2018-03-01 12:00] VITALS: BP 109/68
[2018-03-01 12:14] LABS: *SPE A/G RATIO 0.7 (0.7-1.7); *SPE ALBUMIN 2.5 g/dL (2.9-4.4); *SPE ALPHA-1-GLOBULIN 0.3 g/dL (0.0-0.4); *SPE ALPHA-2-GLOBULIN 0.9 g/dL (0.4-1.0); *SPE BETA GLOBULIN 0.8 g/dL (0.7-1.3); *SPE GLOBULIN, TOTAL 3.4 g/dL (2.2-3.9); *SPE M-SPIKE Not Observed g/dL (Not Observed); *SPEGAMMA GLOBULIN 1.4 g/dL (0.4-1.8)
[2018-03-01 16:00] VITALS: BP 121/61
[2018-03-01] MEDS: LORAZEPAM INJ 2 MG/ML VIAL IV PRN (18:36)
--- NOTE | 2018-03-01 18:42 | NUR ---
HEEL LAYER CLOSING NOTES ALL DUE MEDS GIVEN, NEEDS ANTICIPATED. PT REMAINS OBTUNDED. ON CONTINUOUS VENT AND TOLERATING WELL, NOT IN ANY APPARENT DISTRESS NOTED. FREQUENT SUCTIONING. SAMY PICC LINE INTACT, DRESSING KEPT CLEAN AND DRY. GT IS IN CORRECT PLACEMENT UPON AUSCULTATION. FLUSHED 200ML Q4H WITH GTF AT 50CC/HR. RESIDUAL AT THIS TIME IS 40ML. PER DR. BONE, "IT'S NOT THAT BAD. CONTINUE FEEDING." SAFETY MEASURES ARE IN PLACE. REPOSITION PER PROTOCOL TO PREVENT FURTHER SKIN INJURIES. WILL ENDORSE TO NEXT SHIFT FOR CONTINUITY OF CARE.
--- NOTE | 2018-03-01 19:43 | NUR ---
CUT PRESSMAN OPENING NOTE RECEIVED PT HOB ELEVATED, OBTUNDED. PT CURRENTLY ON VENT, TOLERATING WELL W/ FREQUENT SUCTIONING. NO FACIAL GRIMACING OR MOANING NOTED, GTF GLUCERNA 1.2@50ML, WELL JOSELITO NO RESIDUAL. PICC LINE INTACT, DRESSING KEPT CLEAN AND DRY. GENERALIZED EDEMA TO BUE/BLE, EXTREMITIES KEPT ELEVATED. WILL REPOSITION PER PROTOCOL TO PREVENT FURTHER SKIN ISSUES. SAFETY MEASURES ARE IN PLACE. WILL CONTINUE TO MONITOR THROUGHOUT SHIFT FOR CONTINUITY OF CARE.
[2018-03-01 20:00] VITALS: BP 116/77
[2018-03-01] MEDS: CEFTRIAXONE 1 G in IV D5W 50 ML IV SCH (20:26)
[2018-03-01] MEDS: INSULIN GLARGINE, 100 UNIT/ML CARTRIDGE SQ SCH (21:28)
[2018-03-02] MEDS: LORAZEPAM INJ 2 MG/ML VIAL IV PRN (00:12)
[2018-03-02 00:28] VITALS: BP 112/66
[2018-03-02] MEDS: IPRATROPIUM NEB FS 0.5 MG/2.5 ML AMPUL.NEB NEB SCH ×4 (01:40→20:04)
[2018-03-02] MEDS: ALBUTEROL FS 2.5 MG/0.5 ML VIAL.NEB NEB SCH ×4 (01:40→20:04)
[2018-03-02 04:00] VITALS: BP 115/70
[2018-03-02] MEDS: GLUCERNA 1.2 1,000 ML BOTTLE GT PRN (05:24)
[2018-03-02] MEDS: BLOOD SUGAR DIAGNOSTIC 1 EACH STRIP IN SCH ×3 (05:25→17:37)
--- NOTE | 2018-03-02 06:30 | NUR ---
BANK COMPLIANCE OFFICER CLOSING NOTE ENDORSED PT HOB ELEVATED, OBTUNDED. PT CURRENTLY ON VENT, TOLERATING WELL W/ FREQUENT SUCTIONING. NO FACIAL GRIMACING OR MOANING NOTED, GTF GLUCERNA 1.2@50ML, WELL JOSELITO NO RESIDUAL. PICC LINE INTACT, DRESSING KEPT CLEAN AND DRY. GENERALIZED EDEMA TO BUE/BLE, EXTREMITIES KEPT ELEVATED. WILL REPOSITION PER PROTOCOL TO PREVENT FURTHER SKIN ISSUES. SAFETY MEASURES ARE IN PLACE. WILL CONTINUE TO MONITOR THROUGHOUT SHIFT FOR CONTINUITY OF CARE.
[2018-03-02 06:38] LABS: BASOPHILS % (AUTO) 0.2 % (0.0-2.0); EOSINOPHILS % (AUTO) 0.4 % (0.0-6.0); HEMATOCRIT 26 % (39-51); HEMOGLOBIN 8.1 g/dL (13.5-17.5); LYMPHOCYTES # (AUTO) 2.6 /CMM (0.8-4.8); LYMPHOCYTES % (AUTO) 22.8 % (20.0-44.0); MEAN CORPUSCULAR HGB CONC 31 g/dl (31.0-36.0); MEAN CORPUSCULAR VOLUME 96 fL (80-96); MONOCYTES # (AUTO) 1.1 /CMM (0.1-1.30); NEUTROPHILS # (AUTO) 7.6 /CMM (1.8-8.9); NEUTROPHILS % (AUTO) 66.6 % (43.0-81.0); PLATELET COUNT (AUTO) 239 /CMM (150-450); RDW COEFFICIENT OF VARIATION 20.1 (11.5-15.0); RED BLOOD CELL COUNT(AUTO) 2.71 MIL/uL (4.5-6.0); WHITE BLOOD COUNT (AUTO) 11.5 K/uL (4.3-11.0)
[2018-03-02 06:54] LABS: CALCIUM, SERUM 8.1 mg/dL (8.5-10.1); CREATININE 1.2 mg/dL (0.6-1.3); MAGNESIUM 2.4 mg/dL (1.8-2.4); PHOSPHORUS 2.3 mg/dL (2.5-4.9); POTASSIUM 3.3 mmol/L (3.5-5.1)
--- NOTE | 2018-03-02 07:35 | NUR ---
RN NOTE RECEIVED PATIENT HOB ELEVATED FOR COMFORT, OBTUNDED, BUT IS ABLE TO OPEN EYES WITH TACTILE STIMULI. VET/TRACH DEPENDENT WITH APPROPRIATE SETTINGS AND SATURATING WELL. ON CHEMIC MANGLER SINUS RHYTHM HR OF 67. PICC LINE INTACT AND PATENT. GENERALIZED EDEMA TO BUE/BLE, EXTREMITIES KEPT ELEVATED. ALL SAFETY MEASURES DONE. BED LOW AND LOCKED POSITION. WILL CONTINUE TO MONITOR.
[2018-03-02] MEDS: SUCRALFATE 1 G/10 ML UDC GT SCH ×4 (07:50→21:16)
[2018-03-02 08:00] VITALS: BP 100/62
[2018-03-02] MEDS: HYDROCORTISONE SOD SUCCINATE 100 MG/2 ML VIAL IV SCH ×3 (08:24→16:31)
[2018-03-02] MEDS: LEVETIRACETAM SOL (5 ML) 100 MG/ML UDC GT SCH ×2 (08:24→16:31)
[2018-03-02] MEDS: ATORVASTATIN 10 MG TABLET GT SCH (08:24)
[2018-03-02] MEDS: PANTOPRAZOLE 40 MG VIAL IV SCH ×2 (08:24→16:31)
[2018-03-02] MEDS: DOCUSATE SODIUM LIQ 100 MG/10 ML UDC GT SCH (08:24)
[2018-03-02] MEDS: ASCORBIC ACID 500 MG TABLET GT SCH (08:24)
[2018-03-02] MEDS: ACIDOPHILUS/BULGARICUS 1 EACH TAB.CHEW GT SCH ×3 (08:24→16:31)
[2018-03-02] MEDS: PROSOURCE / PROSTAT (PYXIS) 30 ML UDC GT SCH (08:28)
[2018-03-02] MEDS: TOPIRAMATE 100 MG TABLET GT SCH ×2 (08:29→16:30)
[2018-03-02] MEDS: Z GUARD REMEDY 2 OZ OINT TP SCH (08:37)
[2018-03-02] MEDS: INSULIN REGULAR, HUMAN 100 UNIT/ML 3 ML VIAL SQ PRN ×3 (11:33→21:30)
[2018-03-02 12:00] VITALS: BP 114/76
[2018-03-02] MEDS ORDERED: POTASSIUM CHLORIDE 20 MEQ POWDER PACKET GT SCH (12:00)
[2018-03-02] MEDS ORDERED: IV D5W 1,000 ML IV ONE (13:30)
[2018-03-02] MEDS ORDERED: K PHOS NEUTRAL 250 MG TABLET PO ONE (13:30)
[2018-03-02 16:00] VITALS: BP 114/76
--- NOTE | 2018-03-02 19:06 | NUR ---
RN NOTE PATIENT REMAINED STABLE THROUGHOUT SHIFT. NO ACUTE CHANGES OR DISTRESS NOTED. WILL ENDORSE TO NEXT SHIFT TO CONTINUE TO MONITOR CONTINUITY OF CARE.
[2018-03-02 20:00] VITALS: BP 111/72
--- NOTE | 2018-03-02 20:09 | NUR ---
pt received on vent via trach with charted settings. airway patent. trach secure via trach tie. pt awake. ambu bag at bedside. alarms set and audible, disconnect alarms checked plugged into red outlet suctioned a moderate amount of thin red secretions. pt receiving breathing tx q6 at this time. pt hob at 30 degrees. suctioned oral secretion from pts mouth Addendum: 03/02/18 at 2010 by WALDEMAR NAVARRO RT Amended: Links added.
--- NOTE | 2018-03-02 20:52 | NUR ---
EXTRUSION DIE CORRECTOR OPENING NOTE RECEIVED PT HOB ELEVATED, OBTUNDED. PT CURRENTLY ON VENT, TOLERATING WELL W/ FREQUENT SUCTIONING. NO FACIAL GRIMACING OR MOANING NOTED, GTF GLUCERNA 1.2@50ML, WELL JOSELITO NO RESIDUAL. PICC LINE INTACT, D5W@50ML/HR, DRESSING KEPT CLEAN AND DRY. GENERALIZED EDEMA TO BUE/BLE, EXTREMITIES KEPT ELEVATED. WILL REPOSITION PER PROTOCOL TO PREVENT FURTHER SKIN ISSUES. SAFETY MEASURES ARE IN PLACE. WILL CONTINUE TO MONITOR THROUGHOUT SHIFT FOR CONTINUITY OF CARE.
[2018-03-02] MEDS: CEFTRIAXONE 1 G in IV D5W 50 ML IV SCH (21:16)
[2018-03-02] MEDS: INSULIN GLARGINE, 100 UNIT/ML CARTRIDGE SQ SCH (21:28)
[2018-03-03] VITALS: BP 116/75
[2018-03-03] MEDS: BLOOD SUGAR DIAGNOSTIC 1 EACH STRIP IN SCH ×5 (00:01→23:06)
[2018-03-03] MEDS: INSULIN REGULAR, HUMAN 100 UNIT/ML 3 ML VIAL SQ PRN ×4 (00:02→23:03)
[2018-03-03] MEDS: IPRATROPIUM NEB FS 0.5 MG/2.5 ML AMPUL.NEB NEB SCH ×4 (00:58→19:44)
[2018-03-03] MEDS: ALBUTEROL FS 2.5 MG/0.5 ML VIAL.NEB NEB SCH ×4 (00:58→19:44)
[2018-03-03 04:00] VITALS: BP 114/74
[2018-03-03] MEDS: GLUCERNA 1.2 1,000 ML BOTTLE GT PRN (04:53)
--- NOTE | 2018-03-03 06:34 | NUR ---
POULTRY OFFAL ICER CLOSING NOTE ENDORSED PT HOB ELEVATED, OBTUNDED. PT CURRENTLY ON VENT, TOLERATING WELL W/ FREQUENT SUCTIONING. NO FACIAL GRIMACING OR MOANING NOTED, GTF GLUCERNA 1.2@50ML, WELL JOSELITO NO RESIDUAL. PICC LINE INTACT, D5W@50ML/HR, DRESSING KEPT CLEAN AND DRY. GENERALIZED EDEMA TO BUE/BLE, EXTREMITIES KEPT ELEVATED. WILL REPOSITION PER PROTOCOL TO PREVENT FURTHER SKIN ISSUES. SAFETY MEASURES ARE IN PLACE. WILL CONTINUE TO MONITOR THROUGHOUT SHIFT FOR CONTINUITY OF CARE.
[2018-03-03 06:41] LABS: BASOPHILS % (AUTO) 0.2 % (0.0-2.0); EOSINOPHILS % (AUTO) 0.6 % (0.0-6.0); HEMATOCRIT 26 % (39-51); HEMOGLOBIN 8.1 g/dL (13.5-17.5); LYMPHOCYTES # (AUTO) 2.3 /CMM (0.8-4.8); LYMPHOCYTES % (AUTO) 21.7 % (20.0-44.0); MEAN CORPUSCULAR HGB CONC 31 g/dl (31.0-36.0); MEAN CORPUSCULAR VOLUME 96 fL (80-96); NEUTROPHILS # (AUTO) 7.3 /CMM (1.8-8.9); NEUTROPHILS % (AUTO) 68.5 % (43.0-81.0); PLATELET COUNT (AUTO) 314 /CMM (150-450); RED BLOOD CELL COUNT(AUTO) 2.74 MIL/uL (4.5-6.0); WHITE BLOOD COUNT (AUTO) 10.7 K/uL (4.3-11.0)
[2018-03-03 07:02] LABS: CALCIUM, SERUM 8.2 mg/dL (8.5-10.1); CREATININE 1.2 mg/dL (0.6-1.3); MAGNESIUM 2.3 mg/dL (1.8-2.4); PHOSPHORUS 2.8 mg/dL (2.5-4.9); POTASSIUM 3.3 mmol/L (3.5-5.1)
--- NOTE | 2018-03-03 07:30 | NUR ---
INITIAL PT HOB ELEVATED, OBTUNDED. PT CURRENTLY ON VENT, TOLERATING WELL NO FACIAL GRIMACING OR MOANING NOTED, GTF GLUCERNA 1.2@50ML, WELL TOLERATING NO RESIDUAL. PICC LINE INTACT, D5W@75ML/HR, DRESSING KEPT CLEAN AND DRY. GENERALIZED EDEMA TO BUE/BLE, EXTREMITIES KEPT ELEVATED. WILL REPOSITION PER PROTOCOL TO PREVENT FURTHER SKIN ISSUES. SAFETY MEASURES ARE IN PLACE. WILL CONTINUE TO MONITOR THROUGHOUT SHIFT FOR CONTINUITY OF CARE.
[2018-03-03 08:00] VITALS: BP 97/65
[2018-03-03] MEDS ORDERED: IV NS 0.9% 1,000 ML BAG IV PRN (08:00)
[2018-03-03] MEDS ORDERED: POTASSIUM CHLORIDE 20 MEQ TAB.PRT.SR PO ONE (08:00)
[2018-03-03] MEDS ORDERED: IV NS 0.9% 1,000 ML BAG IV SCH (09:00)
[2018-03-03] MEDS: LEVETIRACETAM SOL (5 ML) 100 MG/ML UDC GT SCH ×2 (09:15→17:59)
[2018-03-03] MEDS: SUCRALFATE 1 G/10 ML UDC GT SCH ×4 (09:15→22:48)
[2018-03-03] MEDS: PANTOPRAZOLE 40 MG VIAL IV SCH ×2 (09:16→18:00)
[2018-03-03] MEDS: ATORVASTATIN 10 MG TABLET GT SCH (09:16)
[2018-03-03] MEDS: DOCUSATE SODIUM LIQ 100 MG/10 ML UDC GT SCH (09:16)
[2018-03-03] MEDS: HYDROCORTISONE SOD SUCCINATE 100 MG/2 ML VIAL IV SCH ×3 (09:16→18:00)
[2018-03-03] MEDS: ASCORBIC ACID 500 MG TABLET GT SCH (09:17)
[2018-03-03] MEDS: TOPIRAMATE 100 MG TABLET GT SCH ×2 (09:17→18:00)
[2018-03-03] MEDS: ACIDOPHILUS/BULGARICUS 1 EACH TAB.CHEW GT SCH ×3 (09:17→18:00)
[2018-03-03] MEDS: PROSOURCE / PROSTAT (PYXIS) 30 ML UDC GT SCH (09:18)
[2018-03-03] MEDS: IV D5W 1,000 ML IV PRN ×2 (09:22→18:42)
[2018-03-03] MEDS: Z GUARD REMEDY 2 OZ OINT TP SCH (09:23)
[2018-03-03 12:00] VITALS: BP 93/62
[2018-03-03 17:00] VITALS: BP 89/56
[2018-03-03 20:00] VITALS: BP 111/74
--- NOTE | 2018-03-03 20:00 | NUR ---
TELE 1 RN NOTE PT IN BED OBTUNDED. ON VENT/TRACH TOLERATING THE SETTINGS WELL. NO DISTRESS OR DISCOMFORT NOTED. ON TELE MONITOR SR HR 74. F/C INTACT AND PATENT DRAINING YELLOWISH COLOR URINE. GTF GLUCERNA 1.2 JAYLYN INFUSING AT 50 ML/HR, 80 ML RESIDUAL NOTED. GTF FLUSHED ORDERED WITH WATER. KEPT HOB ELEVATED. SAMY PICC LINE WITH D5W AT 100 ML/HR INFUSING WELL. NO S/S OF INFILTRATION NOTED. SIDE RAILS UP X 3 AND CALL LIGHT WITHIN REACH. CONTINUE TO MONITOR HIM.
[2018-03-03] MEDS: CEFTRIAXONE 1 G in IV D5W 50 ML IV SCH (20:33)
[2018-03-03] MEDS: INSULIN GLARGINE, 100 UNIT/ML CARTRIDGE SQ SCH (23:02)
[2018-03-04] VITALS: BP 120/74
[2018-03-04] MEDS: ALBUTEROL FS 2.5 MG/0.5 ML VIAL.NEB NEB SCH ×4 (01:35→19:20)
[2018-03-04] MEDS: IPRATROPIUM NEB FS 0.5 MG/2.5 ML AMPUL.NEB NEB SCH ×4 (01:35→19:20)
[2018-03-04 04:00] VITALS: BP 119/75
[2018-03-04] MEDS: IV D5W 1,000 ML IV PRN (05:18)
[2018-03-04] MEDS: GLUCERNA 1.2 1,000 ML BOTTLE GT PRN (05:18)
[2018-03-04] MEDS: BLOOD SUGAR DIAGNOSTIC 1 EACH STRIP IN SCH ×4 (05:56→23:17)
[2018-03-04] MEDS: INSULIN REGULAR, HUMAN 100 UNIT/ML 3 ML VIAL SQ PRN ×4 (05:57→23:18)
--- NOTE | 2018-03-04 06:29 | NUR ---
TELE 1 RN NOTE PT IN BED OBTUNDED. NO DISTRESS OR DISCOMFORT NOTED. NO S/S OF PAIN NOTED. ON TELE MONITOR SR HR 70. KEPT HIM DRY AND CLEAN. ALL NEEDS ATTENDED. REPOSITION HIM Q2H, SIDE RAILS UP X 3 AND CALL LIGHT WITHIN REACH. WILL ENDORSE TO DAY SHIFT NURSE FOR CONTINUE TO CARE.
[2018-03-04 06:39] LABS: BASOPHILS % (AUTO) 0.2 % (0.0-2.0); EOSINOPHILS % (AUTO) 0.2 % (0.0-6.0); HEMATOCRIT 27 % (39-51); HEMOGLOBIN 8.2 g/dL (13.5-17.5); LYMPHOCYTES # (AUTO) 2.1 /CMM (0.8-4.8); LYMPHOCYTES % (AUTO) 16.2 % (20.0-44.0); MEAN CORPUSCULAR HGB CONC 30 g/dl (31.0-36.0); MEAN CORPUSCULAR VOLUME 97 fL (80-96); MONOCYTES # (AUTO) 0.8 /CMM (0.1-1.30); MONOCYTES % (AUTO) 6.5 % (2.0-12.0); NEUTROPHILS % (AUTO) 76.9 % (43.0-81.0); PLATELET COUNT (AUTO) 420 /CMM (150-450); RDW COEFFICIENT OF VARIATION 20.2 (11.5-15.0); RED BLOOD CELL COUNT(AUTO) 2.79 MIL/uL (4.5-6.0); WHITE BLOOD COUNT (AUTO) 12.9 K/uL (4.3-11.0)
[2018-03-04 07:13] LABS: CALCIUM, SERUM 8.1 mg/dL (8.5-10.1); CREATININE 1.2 mg/dL (0.6-1.3); MAGNESIUM 2.1 mg/dL (1.8-2.4); PHOSPHORUS 2.9 mg/dL (2.5-4.9); POTASSIUM 3.2 mmol/L (3.5-5.1)
--- NOTE | 2018-03-04 07:17 | NUR ---
RT RECEIVED PT TRACH ON VENT, WITH NOTED SETTINGS. WASTE/MATERIALS EXCHANGE SPECIALIST DONE AND TRACH IS SECURE. VENT ALARMS CHECKED AND AUDIBLE. VENT PLUGGED IN RED OUTLET. AMBU BAG NOTED HOB. SX WITH MOD TO LRG THK WORKMAN SECRETIONS. PT ON CONTINUOUS PULSE OX. BREATHING TX GIVEN. PT TOLERATING SETTINGS WELL. NO SOB OR RESP DISTRESS NOTED, WILL CONTINUE TO MONITOR T/O SHIFT. Addendum: 03/04/18 at 1459 by LULU PEREYRA RT Amended: Links added.
--- NOTE | 2018-03-04 07:45 | NUR ---
RN NOTE RECEIVED PATIENT HOB ELEVATED FOR COMFORT, OBTUNDED, BUT IS ABLE TO OPEN EYES WITH TACTILE STIMULI. VENT/TRACH DEPENDENT WITH APPROPRIATE SETTINGS AND SATURATING WELL. ON DECK MOLDER SINUS RHYTHM HR OF 80. PICC LINE INTACT AND PATENT WITH ONGOING FLUIDS ORDERED. GT SITE INTACT AND PATENT WITH ONGOING FEEDINGS ORDERED, WITH NO RESIDUAL NOTED. GENERALIZED EDEMA TO BUE/BLE, EXTREMITIES KEPT ELEVATED. ALL SAFETY MEASURES DONE. BED LOW AND LOCKED POSITION. WILL CONTINUE TO MONITOR.
[2018-03-04 08:00] VITALS: BP 111/66
[2018-03-04] MEDS: SUCRALFATE 1 G/10 ML UDC GT SCH ×4 (08:04→21:57)
[2018-03-04] MEDS: HYDROCORTISONE SOD SUCCINATE 100 MG/2 ML VIAL IV SCH ×3 (08:05→16:34)
[2018-03-04] MEDS: DOCUSATE SODIUM LIQ 100 MG/10 ML UDC GT SCH (08:05)
[2018-03-04] MEDS: LEVETIRACETAM SOL (5 ML) 100 MG/ML UDC GT SCH ×2 (08:05→16:34)
[2018-03-04] MEDS: TOPIRAMATE 100 MG TABLET GT SCH ×2 (08:05→16:34)
[2018-03-04] MEDS: ATORVASTATIN 10 MG TABLET GT SCH (08:05)
[2018-03-04] MEDS: PANTOPRAZOLE 40 MG VIAL IV SCH ×2 (08:05→16:34)
[2018-03-04] MEDS: ASCORBIC ACID 500 MG TABLET GT SCH (08:05)
[2018-03-04] MEDS: ACETAMINOPHEN 325 MG TABLET PO PRN (08:05)
[2018-03-04] MEDS: PROSOURCE / PROSTAT (PYXIS) 30 ML UDC GT SCH (08:06)
[2018-03-04] MEDS: Z GUARD REMEDY 2 OZ OINT TP SCH (08:07)
[2018-03-04] MEDS: ACIDOPHILUS/BULGARICUS 1 EACH TAB.CHEW GT SCH ×3 (08:08→16:34)
[2018-03-04 10:23] LABS: BAND % (MANUAL) 5 % (0.0-5.0); LYMPHOCYTES % (MANUAL) 8 % (16-48); MONOCYTES % (MANUAL) 5 % (0-11.0); MYELOCYTES % 1 % (0-0); NEUTROPHILS % (MANUAL) 81 (42-76)
[2018-03-04 12:00] VITALS: BP 125/76
[2018-03-04] MEDS: POTASSIUM CHLORIDE 20 MEQ POWDER PACKET PO SCH ×2 (12:26→14:01)
[2018-03-04 16:00] VITALS: BP 113/62
[2018-03-04] MEDS: Potassium Chloride 40 MEQ in IV D5W 1,000 ML IV PRN (16:35)
--- NOTE | 2018-03-04 19:04 | NUR ---
RN NOTE PATIENT REMAINED STABLE THROUGHOUT SHIFT. NO ACUTE CHANGES OR DISTRESS NOTED. WILL ENDORSE TO NEXT SHIFT TO CONTINUE TO MONITOR CONTINUITY OF CARE.
--- NOTE | 2018-03-04 19:21 | NUR ---
PT RECEIVED WITH A PORTEX 9 TRACH ON THE VENT WITH NOTED SETTINGS. PT IS AWAKE BUT DOES NOT FOLLOW COMMANDS. VENT ALARMS ARE SET AND AUDIBLE WITH AMBU BAG @BEDSIDE. LOOP TACKER CUFF PRESSURE NOTED. TRACH PATENT AND SECURE. VENT IS PLUGGED INTO RED OUTLET. BREATHING TX GIVEN. NO ADVERSE REACTION NOTED SX'D MODERATE WORKMAN THICK SECRETIONS. NO RESPIRATORY DISTRESS NOTED AT THIS TIME, WILL CONTINUE TO MONITOR.
[2018-03-04 20:00] VITALS: BP 111/69
--- NOTE | 2018-03-04 20:00 | NUR ---
TELE 1 RN NOTE PT IN BED OBTUNDED. ON VENT/TRACH TOLERATING THE SETTINGS WELL, NO DISTRESS OR DISCOMFORT NOTED. NO S/S OF PAIN NOTED. ON TELE MONITOR SR HR 71. RT SUCTIONED THE PT, NOTED THICK WHITE SECRETIONS NO BLEEDING NOTED. GTF GLUCERNA 1.2 INFUSING AT 50 ML/HR RESIDUAL 25 ML NOTED. KEPT HOB ELEVATED. ALSO D5W WITH 40 MEQ KCL INFUSING AT 120 ML/HR SAMY PICC LINE. NO S/S OF INFILTRATION NOTED. F/C INTACT AND PATENT DRAINING YELLOWISH COLOR URINE. REPOSITION HIM FOR SKIN MANAGEMENT. SIDE RAILS UP X 3 AND CALL LIGHT WITHIN REACH. VSS. CONTINUE TO MONITOR HIM.
[2018-03-04] MEDS: CEFTRIAXONE 1 G in IV D5W 50 ML IV SCH (20:05)
[2018-03-04] MEDS: INSULIN GLARGINE, 100 UNIT/ML CARTRIDGE SQ SCH (23:17)
[2018-03-05] VITALS: BP 106/63
[2018-03-05] MEDS: ALBUTEROL FS 2.5 MG/0.5 ML VIAL.NEB NEB SCH ×4 (01:30→20:08)
[2018-03-05] MEDS: IPRATROPIUM NEB FS 0.5 MG/2.5 ML AMPUL.NEB NEB SCH ×4 (01:30→20:08)
[2018-03-05] MEDS: Potassium Chloride 40 MEQ in IV D5W 1,000 ML IV PRN ×3 (02:30→20:02)
[2018-03-05 04:00] VITALS: BP 102/65
[2018-03-05] MEDS: GLUCERNA 1.2 1,000 ML BOTTLE GT PRN ×2 (04:01→23:26)
[2018-03-05] MEDS: INSULIN REGULAR, HUMAN 100 UNIT/ML 3 ML VIAL SQ PRN ×4 (05:00→23:24)
[2018-03-05] MEDS: BLOOD SUGAR DIAGNOSTIC 1 EACH STRIP IN SCH ×4 (05:04→23:24)
[2018-03-05 06:37] LABS: CALCIUM, SERUM 7.8 mg/dL (8.5-10.1); CREATININE 1.2 mg/dL (0.6-1.3); MAGNESIUM 1.8 mg/dL (1.8-2.4); PHOSPHORUS 2.4 mg/dL (2.5-4.9); POTASSIUM 3.5 mmol/L (3.5-5.1)
--- NOTE | 2018-03-05 06:43 | NUR ---
TELE 1 RN NOTE PT IN BED OBTUNDED. CONTINUE ON VENT/TRACH TOLERATING THE SETTINGS WELL, NO DISTRESS OR DISCOMFORT NOTED. NO S/S OF PAIN NOTED. ON TELE MONITOR SR HR 76. KEPT HIM DRY AND CLEAN. ALL NEEDS ATTENDED. MCCOY CATH INTACT AND PATENT DRAINING YELLOWISH COLOR URINE. GTF INFUSING WELL, 20 ML RESIDUAL NOTED. REPOSITION HIM Q2H, SIDE RAILS UP X 3 AND CALL LIGHT WITHIN REACH. WILL ENDORSE TO DAY SHIFT NURSE FOR CONTINUE TO CARE.
[2018-03-05 06:52] LABS: BASOPHILS # (AUTO) 0.1 /CMM (0.0-0.2); BASOPHILS % (AUTO) 1.3 % (0.0-2.0); EOSINOPHILS % (AUTO) 0.2 % (0.0-6.0); HEMATOCRIT 25 % (39-51); HEMOGLOBIN 8.1 g/dL (13.5-17.5); LYMPHOCYTES # (AUTO) 2.1 /CMM (0.8-4.8); LYMPHOCYTES % (AUTO) 22.5 % (20.0-44.0); MEAN CORPUSCULAR HGB CONC 33 g/dl (31.0-36.0); MEAN CORPUSCULAR VOLUME 94 fL (80-96); MONOCYTES # (AUTO) 0.9 /CMM (0.1-1.30); MONOCYTES % (AUTO) 9.9 % (2.0-12.0); NEUTROPHILS # (AUTO) 6.5 /CMM (1.8-8.9); NEUTROPHILS % (AUTO) 66.1 % (43.0-81.0); PLATELET COUNT (AUTO) 435 /CMM (150-450); RED BLOOD CELL COUNT(AUTO) 2.62 MIL/uL (4.5-6.0); WHITE BLOOD COUNT (AUTO) 9.6 K/uL (4.3-11.0)
[2018-03-05 08:00] VITALS: BP 119/74
[2018-03-05] MEDS: TOPIRAMATE 100 MG TABLET GT SCH ×2 (09:05→16:29)
[2018-03-05] MEDS: ASCORBIC ACID 500 MG TABLET GT SCH (09:05)
[2018-03-05] MEDS: ATORVASTATIN 10 MG TABLET GT SCH (09:05)
[2018-03-05] MEDS: DOCUSATE SODIUM LIQ 100 MG/10 ML UDC GT SCH (09:05)
[2018-03-05] MEDS: HYDROCORTISONE SOD SUCCINATE 100 MG/2 ML VIAL IV SCH ×3 (09:05→16:29)
[2018-03-05] MEDS: ACIDOPHILUS/BULGARICUS 1 EACH TAB.CHEW GT SCH ×3 (09:05→16:29)
[2018-03-05] MEDS: LEVETIRACETAM SOL (5 ML) 100 MG/ML UDC GT SCH ×2 (09:05→16:29)
[2018-03-05] MEDS: SUCRALFATE 1 G/10 ML UDC GT SCH ×4 (09:05→21:46)
[2018-03-05] MEDS: PANTOPRAZOLE 40 MG VIAL IV SCH ×2 (09:06→16:29)
[2018-03-05] MEDS: Z GUARD REMEDY 2 OZ OINT TP SCH (09:06)
[2018-03-05] MEDS: PROSOURCE / PROSTAT (PYXIS) 30 ML UDC GT SCH (09:14)
[2018-03-05 12:00] VITALS: BP 146/84
[2018-03-05] MEDS ORDERED: NEUTRA PHOS 1 POWD.PACKET NG ONE (12:00)
[2018-03-05 16:00] VITALS: BP 127/81
--- NOTE | 2018-03-05 18:45 | NUR ---
RN NOTES PATIENT OBTUNDED, MECHANICAL VENT DEPENDENT AND TOLERATES CURRENT SETTING. TURNED AND REPOSITIONED EVERY 2 HOURS, SKIN CARE RENDERED, WOUND TREATMENT RENDERED, OFFLOADED [place]. HEELS AND ELBOWS. PICC LINE FLUSHED, 2 PORT PATENT. GTF ONGOING AND TOLERATING WELL, WITH RESIDUAL OF 35CC. WATER FLUSHES DONE EVERY 4 HOURS. NEEDS ATTENDED AND MET, CALL LIGHT WITHIN REACH, WILL ENDORSE TO EVENT LIGHTING SPECIALIST FOR CHELLE.
[2018-03-05] MEDS: ACETAMINOPHEN 325 MG TABLET PO PRN (19:57)
[2018-03-05] MEDS: CEFTRIAXONE 1 G in IV D5W 50 ML IV SCH (19:57)
[2018-03-05 20:00] VITALS: BP 118/78
--- NOTE | 2018-03-05 20:00 | NUR ---
TELE 1 RN NOTE PT IN BED OBTUNDED. ON VENT/TRACH TOLERATING THE SETTINGS WELL. NO DISTRESS OR DISCOMFORT NOTED. ON TELE MONITOR SR HR 70 F/C INTACT AND PATENT DRAINING YELLOWISH COLOR URINE. GTF GLUCERNA 1.2 JAYLYN INFUSING AT 50 ML/HR, 30 ML RESIDUAL NOTED. GTF FLUSHED ORDERED WITH 200 ML WATER. KEPT HOB ELEVATED. SAMY PICC LINE WITH D5W AT 120 ML/HR INFUSING WELL. NO S/S OF INFILTRATION NOTED. SIDE RAILS UP X 3 AND CALL LIGHT WITHIN REACH. CONTINUE TO MONITOR HIM.
--- NOTE | 2018-03-05 20:33 | NUR ---
PT REC'D TRACHED ON [facility] VENT ON AC MODE. NO RESP DISTRESS OR SOB NOTED. TRACH PATENT AND SECURED. SX'D FOR THICK MOD AMT OF PALE YELLOW SPUTUM. VENT PLUGGED INTO RED OUTLET. ALARMS ARE SET AND AUDIBLE. AMBU BAG BEDSIDE. WILL CONTINUE TO MONITOR. Addendum: 03/06/18 at 0635 by LILLY BARNES RT Amended: Links added.
--- NOTE | 2018-03-05 21:00 | NUR ---
TELE 1 RN NOTE BODY TEMP CAME DOWN TO 99. NO DISTRESS NOTED. TOLERATING VENT SETTINGS. REPOSITION HIM FOR COMFORT.
[2018-03-05] MEDS ORDERED: INSULIN GLARGINE, 100 UNIT/ML CARTRIDGE SQ SCH (22:00)
[2018-03-06] VITALS: BP_SYST 107; BP_SYST 118; BP_DIAS 66; BP_DIAS 78
[2018-03-06] MEDS: ALBUTEROL FS 2.5 MG/0.5 ML VIAL.NEB NEB SCH ×2 (01:48→07:17)
[2018-03-06] MEDS: IPRATROPIUM NEB FS 0.5 MG/2.5 ML AMPUL.NEB NEB SCH ×2 (01:48→07:17)
[2018-03-06 04:00] VITALS: BP 112/64
[2018-03-06] MEDS: Potassium Chloride 40 MEQ in IV D5W 1,000 ML IV PRN (05:01)
[2018-03-06] MEDS: BLOOD SUGAR DIAGNOSTIC 1 EACH STRIP IN SCH ×2 (05:45→11:44)
[2018-03-06] MEDS: INSULIN REGULAR, HUMAN 100 UNIT/ML 3 ML VIAL SQ PRN ×2 (05:47→11:47)
[2018-03-06 06:43] LABS: BASOPHILS % (AUTO) 0.3 % (0.0-2.0); EOSINOPHILS % (AUTO) 0.1 % (0.0-6.0); HEMATOCRIT 26 % (39-51); HEMOGLOBIN 8.1 g/dL (13.5-17.5); LYMPHOCYTES # (AUTO) 1.8 /CMM (0.8-4.8); LYMPHOCYTES % (AUTO) 16.5 % (20.0-44.0); MEAN CORPUSCULAR HGB CONC 31 g/dl (31.0-36.0); MEAN CORPUSCULAR VOLUME 96 fL (80-96); MONOCYTES % (AUTO) 8.9 % (2.0-12.0); NEUTROPHILS % (AUTO) 74.2 % (43.0-81.0); PLATELET COUNT (AUTO) 428 /CMM (150-450); RDW COEFFICIENT OF VARIATION 20.7 (11.5-15.0); WHITE BLOOD COUNT (AUTO) 10.7 K/uL (4.3-11.0)
--- NOTE | 2018-03-06 06:51 | NUR ---
TELE 1 RN NOTE PT IN BED OBTUNDED. EYES OPEN. BODY TEMP WNL. GTF INFUSING WELL. ON TELE MONITOR SR HR 72. ALL NEEDS ATTENDED. SIDE RAILS UP X 3 AND CALL LIGHT WITHIN REACH. WILL ENDORSE TO DAY SHIFT NURSE FOR CONTINUE TO CARE.
[2018-03-06 06:54] LABS: CALCIUM, SERUM 7.7 mg/dL (8.5-10.1); CREATININE 1.1 mg/dL (0.6-1.3); MAGNESIUM 1.8 mg/dL (1.8-2.4); PHOSPHORUS 2.1 mg/dL (2.5-4.9)
--- NOTE | 2018-03-06 07:10 | NUR ---
TELE/RN INITIAL NOTES RECEIVED PT IN BED, OBTUNDED. WITH INTACT TRACH PORTEX#9; TOLERATING VENT SETTINGS: AC12; TV500; FIO2:50; PEEP:5. NO SOB NOTED. SR ON TELE MONITOR. WITH INTACT AND IN PLACED GT,WITH ONGOING GTF GLUCERNA 1.2 AT 50 ML/HR, TOLERATING WELL. HOB ELEVATED. WITH ONGOING IVF D50 WITH 40 MEQS KCL AT 120 ML/HR INFUSING WELL ON SAMY PICC LINE. SAFETY MEASURES IN PLACED. WILL CONT TO MONITOR Addendum: 03/06/18 at 1345 by JEREMIAS SWEET RN ADD: ERROR ENTRY, FIO2=40%
[2018-03-06] MEDS: SUCRALFATE 1 G/10 ML UDC GT SCH ×2 (07:43→11:44)
[2018-03-06 08:00] VITALS: BP 161/78
[2018-03-06] MEDS: LEVETIRACETAM SOL (5 ML) 100 MG/ML UDC GT SCH (08:15)
[2018-03-06] MEDS: TOPIRAMATE 100 MG TABLET GT SCH (08:15)
[2018-03-06] MEDS: ACIDOPHILUS/BULGARICUS 1 EACH TAB.CHEW GT SCH ×2 (08:15→13:22)
[2018-03-06] MEDS: DOCUSATE SODIUM LIQ 100 MG/10 ML UDC GT SCH (08:15)
[2018-03-06] MEDS: PANTOPRAZOLE 40 MG VIAL IV SCH (08:15)
[2018-03-06] MEDS: ATORVASTATIN 10 MG TABLET GT SCH (08:15)
[2018-03-06] MEDS: HYDROCORTISONE SOD SUCCINATE 100 MG/2 ML VIAL IV SCH ×2 (08:15→13:22)
[2018-03-06] MEDS: ASCORBIC ACID 500 MG TABLET GT SCH (08:15)
[2018-03-06] MEDS: Z GUARD REMEDY 2 OZ OINT TP SCH (08:16)
[2018-03-06] MEDS: PROSOURCE / PROSTAT (PYXIS) 30 ML UDC GT SCH (08:18)
[2018-03-06 12:00] VITALS: BP 121/78
[2018-03-06] MEDS ORDERED: Hydrocortisone Sod Succinate IV (12:05)
[2018-03-06] MEDS ORDERED: CEFT1VIA15 IV (12:05)
[2018-03-06] MEDS ORDERED: PANT40VI IV (12:05)
[2018-03-06] MEDS ORDERED: INSU100I30 SQ (12:05)
[2018-03-06] MEDS ORDERED: SUCR1ORA6 GT (12:05)
[2018-03-06] MEDS ORDERED: Prosource GT (12:05)
--- NOTE | 2018-03-06 12:45 | NUR ---
RN NOTES REPORT GIVEN TO TENISHA MANCILLA([facility]) Addendum: 03/06/18 at 1357 by JEREMIAS SWEET RN ADD 1300 CLARIFIED WITH TENISHA MANCILLA'S FIO2=40%
[2018-03-06] MEDS: LORAZEPAM INJ 2 MG/ML VIAL IV PRN (12:55)
--- NOTE | 2018-03-06 13:53 | NUR ---
RN NOTES DISCHARGE PT TO [facility] IN STABLE CONDITION. VIA AMBULANCE, ACCOMPANIED BY RT AND 2EMTS.REPORT GIVEN TO EMT/RT. SAFETY MEASURES OBSERVED AT ALL TIMES. SAMY PICC LINE KEPT INTACT AND PATENT. F/C KEPT IN PLACED. D/C
== END 2018-03-06 13:30 | DRG 870 ==
LOC: ER 19:48 → TELE-TD 23:10 → UNDOADMIN 23:10 → ICU 23:10 → TELE1 02-27 01:04
PROVIDERS: ADMIT Registered Nurse; ATTEND Registered Nurse
PROC: 5A1955Z Respiratory Ventilation, Greater than 96 Consecutive Hours (ICD-10-PCS; principal; 2018-02-22)
PROC: 30233R1 Transfusion of Nonautologous Platelets into Peripheral Vein, Percutaneous Approach (ICD-10-PCS; 2018-02-23)
PROC: 0D20XUZ Change Feeding Device in Upper Intestinal Tract, External Approach (ICD-10-PCS; 2018-02-24)
PROC: 0DB98ZX Excision of Duodenum, Via Natural or Artificial Opening Endoscopic, Diagnostic (ICD-10-PCS; 2018-02-25)
PROC: 0DB78ZX Excision of Stomach, Pylorus, Via Natural or Artificial Opening Endoscopic, Diagnostic (ICD-10-PCS; 2018-02-25)
PROC: 0DB58ZX Excision of Esophagus, Via Natural or Artificial Opening Endoscopic, Diagnostic (ICD-10-PCS; 2018-02-25)
PROC: 30233N1 Transfusion of Nonautologous Red Blood Cells into Peripheral Vein, Percutaneous Approach (ICD-10-PCS; 2018-02-26)
DX: A41.9 Sepsis, unspecified organism (principal); R65.21 Severe sepsis with septic shock; G93.40 Encephalopathy, unspecified; R53.2 Functional quadriplegia; K72.00 Acute and subacute hepatic failure without coma; N17.0 Acute kidney failure with tubular necrosis; J96.21 Acute and chronic respiratory failure with hypoxia; J15.6 Pneumonia due to other Gram-negative bacteria; J69.0 Pneumonitis due to inhalation of food and vomit; K29.71 Gastritis, unspecified, with bleeding; J95.851 Ventilator associated pneumonia; D68.59 Other primary thrombophilia; E44.0 Moderate protein-calorie malnutrition; E87.0 Hyperosmolality and hypernatremia; Z99.11 Dependence on respirator [ventilator] status; E87.2 Acidosis; R40.3 Persistent vegetative state; D61.818 Other pancytopenia; K94.23 Gastrostomy malfunction; I11.0 Hypertensive heart disease with heart failure; K29.80 Duodenitis without bleeding; D69.6 Thrombocytopenia, unspecified; E11.9 Type 2 diabetes mellitus without complications; E66.9 Obesity, unspecified; E83.52 Hypercalcemia; E87.6 Hypokalemia; K21.0 Gastro-esophageal reflux disease with esophagitis; K22.70 Barrett's esophagus without dysplasia; Z86.73 Personal history of transient ischemic attack (TIA), and cerebral infarction without residual deficits; Z87.440 Personal history of urinary (tract) infections; I25.10 Atherosclerotic heart disease of native coronary artery without angina pectoris; G40.909 Epilepsy, unspecified, not intractable, without status epilepticus; D50.9 Iron deficiency anemia, unspecified; R74.0 Nonspecific elevation of levels of transaminase and lactic acid dehydrogenase [LDH]; E86.0 Dehydration; F09 Unspecified mental disorder due to known physiological condition; Y84.8 Other medical procedures as the cause of abnormal reaction of the patient, or of later complication, without mention of misadventure at the time of the procedure; Y92.129 Unspecified place in nursing home as the place of occurrence of the external cause; Z93.0 Tracheostomy status; K44.9 Diaphragmatic hernia without obstruction or gangrene; K76.0 Fatty (change of) liver, not elsewhere classified; E77.8 Other disorders of glycoprotein metabolism; Z68.32 Body mass index [BMI] 32.0-32.9, adult; L89.610 Pressure ulcer of right heel, unstageable; I50.9 Heart failure, unspecified; L84 Corns and callosities; Z74.01 Bed confinement status; Z79.4 Long term (current) use of insulin
CPT/HCPCS: 31720; 36415; 36600; 71045-TC; 74018; 76700-TC; 80048-TC; 80053-TC; 80061-TC; 80076-TC; 80202-TC; 81000-TC; 82105; 82272-TC; 82378; 82533; 82570-TC; 82728-TC; 82746; 82784; 82803-TC; 82962-TC; 83540-TC; 83605-TC; 83735-TC; 83880; 83935-TC; 84100-TC; 84155; 84155-TC; 84165; 84300-TC; 84443-TC; 84484-TC; 84550-TC; 85025-TC; 85396; 85730-TC; 86301; 86334; 86850-TC; 86921-TC; 87040-TC; 87070-TC; 87081-TC; 87086-TC; 87186-TC; 88305-TC; 88313-TC; 88342; 93307-TC; 94002-TC; 94003-TC; 94760-TC; 94762-TC; 99082-TC; A4606; A6402; C1751; C9113; J0696; J1720; J1815; J1940; J1953; J2060; J2185; J2543; J2916; J3370; J3480; J3490; J7030; J7040; J7050; J7060; J7070; P9016-BL; P9034-BL; Z7610